=== PATIENT | female | born 1940 | race Caucasian/White ===

== ENCOUNTER 2017-05-05 12:32 | Inpatient (IN) | payer MEDICARE, MEDICAID ==
[~2017-05-05] VITALS: Ht 170.2 cm; Wt 83.0 kg
[~2017-05-05 12:32] MED LIST: ACTOS30 MG PO; AMITRIPTYLINE 225 MG PO; AVALIDE 12.5 MG1 TA1 PO; AVAPRO150 MG PO; FUROSEMIDE 40MG40 M1 PO; GLUCOVANCE 2.51 TAB PO; JANUVIA50 MG PO; LANTUS INS100 UNITS/ SC; METFORMIN HCL1000 MG PO; MULTIVITAMIN1 TA1 PO; Prilosec20 MG PO; SIMVASTATIN40 MG PO; TUMS500 MG PO; VITAMIN B12250 MCG PO; VITAMIN B650 MG PO
[2017-05-05 12:34] VITALS: BP 126/69
[2017-05-05] MEDS ORDERED: GABAPENTIN600 MG PO (12:43)
--- NOTE | 2017-05-05 12:57 | Emergency Room Report ---
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 N Clinical Suspician of Infection? N Mental Status: 1 - Regular (Normal Baseline) Sepsis Risk:Low Sepsis Risk Have you (or family members/close friends) recently traveled outside the [place]? N If Yes, where/when: Have you had exposure to infectious disease within the past month? N TB? Other? Specify: 6-year-old years old white female with diabetic neuropathy and diabetic shoes. She claims that it she slipped and fell and was unable to stand on the LEFT leg. She denies other injury. She wanted her potassium checked" and Dr. Short modified. Source patient, RN notes reviewed, EMS Exam Limitations no limitations ALLERGIES Coded Allergies: Penicillins (05/05/17) TOMATOES (FOOD) (From TOMATOES (FOOD/DRUG)) (UNKNOWN 01/27/11) egg (05/05/17) morphine (05/05/17) tomato (05/05/17) Home Medications Active Scripts METFORMIN HCL (Metformin 1000MG) 1,000 MG PO BID #60 Prov: 02/25/11 Sitagliptin Phosphate (Januvia) 50 MG PO DAILY #30 Prov: 02/25/11 Irbesartan (Avapro) 150 MG PO DAILY #30 Prov: 02/25/11 Reported Medications Furosemide 40 MG PO BID Cyanocobalamin (Vitamin B12) 250 MCG PO DAILY Pyridoxine Hcl (Vitamin B6) 50 MG PO DAILY Multiple Vitamin (Multivitamin) 1 TAB PO DAILY Calcium Carbonate (Tums) 500 MG PO PRN Simvastatin (Simvastatin 40MG Tab) 40 MG PO QHS Amitriptyline Hcl (Amitriptyline) 1 TAB PO DAILY Insulin Glargine (Lantus Insulin Vial) 20 UNITS SC QHS Gabapentin 600 MG PO QHS #45 History Medical History General Angina: Yes [place]: Yes Hypertension? Yes Hyperlipidemia? Yes CHF? Yes COPD? No Asthma? No Hernia? Yes CVA? No Seizures? No Diabetes? Yes Insulin Dependent: Yes Insulin Pump: No Home FSBS? Yes UTI? Yes Stones? Yes GB Disease: Yes Hepatitis? No Cataracts? No Glaucoma? No MRSA? No TB? No Cancer? 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 Respiratory no symptoms reported Cardiovascular no symptoms reported Gastrointestinal no symptoms reported Genitourinary no symptoms reported. Musculoskeletal see HPI, joint pain (LEFT hip) Skin no symptoms reported Psychiatric/Neurological no symptoms reported Physical Exam Vital Signs Vital Signs Date Time Temp Pulse Resp B/P Pulse O2 O2 Flow FiO2 Ox Delivery Rate 05/05 1338 78 18 155/92 96 05/05 1335 18 05/05 1234 98.2 62 18 126/69 98 Alert talkative and pleasant (Jossie MAYES,[facility]) - WBC >12,000 or <4,000 or 10% bands? 2 or more SIRS Criteria Met? B/P:126/69 MAP:88 Creatinine >2.0? UA output<0.5ml/kg/hr for 2 hrs? Platelet count >100,000? Lactate >2.0mmol/1? INR >1.2 or PTT > than 60 sec? Evidence of Organ Dysfunction? Provider documented clinical suspician of infection? N Sepsis Criteria Count: 0 Sepsis Risk: Low Sepsis Risk General Appearance normal appearance, WD/WN Eye Exam - bilateral eye normal exam, bilateral eye PERRL, bilateral eye EOMI Ear, Nose, Throat hearing grossly normal, normal ENT inspection Neck normal inspection, non-tender, supple, full range of motion Respiratory Status Yes: trachea midline, chest symmetrical, non tender chest. No: respiratory distress. Lung Sounds bilateral: normal breath sounds, lungs clear. Cardiovascular normal exam, regular rate/rhythm, no peripheral edema, no gallop, no JVD, no murmur, no rub, normal peripheral pulses Peripheral Pulses Pulses normal Yes Peripheral Pulses 2+ dorsalis pedis (R), 2+ dorsalis pedis (L) Gastrointestinal normal bowel sounds, normal exam, non tender, soft, no organomegaly Extremities unable to move the LEFT leg without deformity suggestive of LEFT hip fracture Neurologic alert, clinical therapist II-XII nml as tested, normal exam, oriented x 3 Reflexes Reflexes normal Yes Medical Decision Making LABS/Meds/Orders Pt receiving controlled substance in ED? No Results/Orders Laboratory Tests 05/05/17 1350: Urine Color YELLOW, Urine Appearance SL CLOUDY, Urine pH 7.0, Ur Specific [place] 1.010, Urine Protein NEGATIVE, Urine Ketones NEGATIVE, Urine Blood NEGATIVE, Urine Nitrate NEGATIVE, Urine Bilirubin NEGATIVE, Urine Urobilinogen 0.2, Ur Leukocyte Esterase NEGATIVE, Urine RBC NONE, Urine WBC OCC, Ur Squamous Epith Cells NONE, Urine Bacteria 4+, Urine Glucose NEGATIVE 05/05/17 1250: Magnesium 1.7 05/05/17 1250: Sodium 136, Potassium 3.4 L, Chloride 98, Carbon Dioxide 29, BUN 9, Creatinine 0.9, Estimated Creat Clear 101, Estimated GFR (MDRD) 61, Glucose 185 H, Calcium 9.3, Total Bilirubin 0.5, AST 23, ALT 19, Alkaline Phosphatase 60, Total Protein 6.7, Albumin 3.4, Globulin 3.3 H, Albumin/Globulin Ratio 1.0 L, WBC 6.4, RBC 4.07 L, Hgb 12.3, Hct 36.1 L, MCV 88.7, RDW 12.3, Plt Count 174, MPV 8.4, Gran % 73.3, Gran # 4.7, Lymphocytes % 20.5, Monocytes % 5.0, Eosinophils % 0.9, Basophils % 0.4, Lymphocytes # 1.3, Monocytes # 0.3, Eosinophils # 0.1, Basophils # 0.0, PUBS MCHC 34.1, MCH 30.3 Current Medication Orders Sig/Maxime Start time Last Medication Dose Route Stop Time Status Admin Hydrocodone Bitart/ 1 TAB ONCE ONE 05/05 1345 DCr 05/05 Acetaminophen PO 05/05 1346 1335 Ondansetron HCl 4 MG ONCE ONE 05/05 1345 DC 05/05 IV 05/05 1346 1335 Ondansetron HCl 0 .STK-MED ONE 05/05 1334 DC .ROUTE Hydrocodone Bitart/ 0 .STK-MED ONE 05/05 1333 DCr Acetaminophen PO Sodium Chloride 10 ML PRN PRN 05/05 1300 AC IV 05/06 1255 Orders Procedure Date/time Status URINARY CATHETER INSERT 05/05 1351 Active URINALYSIS/COMPLETE 05/05 1351 Complete CULTURE, URINE 05/05 1350 Active IV SALINE LOCK 05/05 1255 Active PELVIS AP ONLY 05/05 1254 Active HIP LT 2-3V W/PELVIS IF PERFOR 05/05 1254 Active CHEST-AP VIEW ONLY 05/05 1254 Active MAGNESIUM 05/05 1254 Complete COMPLETE METABOLIC PANEL 05/05 1245 Complete CBC WITH AUTO DIFF 05/05 1245 Complete XRAY/CT/US XRAY/CT/US XRAY chest, hip, pelvis XR interpretation by reviewed by me Xray Results abnormal, positive for LEFT femur neck fracture Departure Departure Time of Disposition 1335 Disposition Still a Patient Clinical Impression Primary Impression: Hip fracture, left Secondary Impressions: Closed fracture of femur, neck, Diabetic neuropathy Condition STABLE Referrals KARLENE ARROYO Additional Instructions [address] Arroyo to review. 1435 dr Arroyo called back and requested to admit, feed her and surgery is tomorrow. [address] Mata to admit. Discharge Counseling Counseled pt/family regarding diagnosis, test results, medications/RX, home care ED Critical Care Critical Care No If Critical Care minutes are documented, the time involved in the performance of seperately reportable procedures was not counted toward critical care time documented. I directly delivered medical care to this critically ill and/or injured patient. Timely evaluation and treatment was necessary to address the significant organ system(s) dysfunction present in this patient. at 1436
[2017-05-05 12:58] LABS: HEMOGLOBIN 12.3 g/dL (12.2-16.2); LYMPH # 1.3 K/mm3 (0.7-4.5); LYMPH % 20.5 % (10-50.0)
--- OUTSIDE RECORDS SUMMARY | 2017-05-05 13:07 | External Medical Summary Rpt | CCD ---
Author Author MARITA Address Unknown Phone [email or web address] Purpose Continuity of Care Document - through 2016
--- OUTSIDE RECORDS SUMMARY | 2017-05-05 13:07 | External Medical Summary Rpt | CCD ---
Author Author MARITA Address Unknown Phone [email or web address] Purpose Continuity of Care Document - through 2016
--- OUTSIDE RECORDS SUMMARY | 2017-05-05 13:08 | External Medical Summary Rpt | CCD ---
Demographics Preferred Language Danish Marital Status Unknown Anglican Affiliation Unknown Race Unknown Ethnic Group Unknown Author Author , GAIL REYNOLDS Address Unknown Phone Immunization No patient found.
--- OUTSIDE RECORDS SUMMARY | 2017-05-05 13:08 | External Medical Summary Rpt | CCD ---
Demographics Preferred Language Bhutanese Marital Status Unknown Sikhism Affiliation Unknown Race Unknown Ethnic Group Unknown Author Author , GAIL REYNOLDS Address Unknown Phone Immunization No patient found.
--- OUTSIDE RECORDS SUMMARY | 2017-05-05 13:08 | External Medical Summary Rpt ---
Author Author GAIL Castro, GAIL [employer] Organization [employer] Address Unknown Phone Unavailable
--- OUTSIDE RECORDS SUMMARY | 2017-05-05 13:08 | External Medical Summary Rpt | CCD ---
Author Author [employer] Organization [employer] Address Unknown Phone Unavailable Purpose Continuity of Care Document - through 2016
[2017-05-05 14:09] LABS: URINE BILIRUBIN - DIPSTICK NEGATIVE (NEG); URINE BLOOD NEGATIVE (NEG)
--- NOTE | 2017-05-05 15:14 | RADIOLOGY REPORT PS360 ---
CHEST-AP VIEW ONLY HISTORY: Posttraumatic pain fall ORDERING PHYSICIAN: Ezra Sethi MD PATIENT AGE: 77 years COMPARISON: 06/02/2008 FINDINGS: There is mild cardiomegaly without failure. Lungs are clear. Mild thoracic scoliosis convex right. Mild degenerative changes in the shoulders. IMPRESSION: Cardiomegaly, no acute finding
--- NOTE | 2017-05-05 15:14 | RADIOLOGY REPORT PS360 ---
CHEST-AP VIEW ONLY HISTORY: Posttraumatic pain fall ORDERING PHYSICIAN: Ezra eSthi MD PATIENT AGE: 77 years COMPARISON: 06/02/2008 FINDINGS: There is mild cardiomegaly without failure. Lungs are clear. Mild thoracic scoliosis convex right. Mild degenerative changes in the shoulders. IMPRESSION: Cardiomegaly, no acute finding
--- NOTE | 2017-05-05 15:16 | RADIOLOGY REPORT PS360 ---
PELVIS AP ONLY HISTORY: Fall with injury and pain fall ORDERING PHYSICIAN: Ezra Sethi MD PATIENT AGE: 77 years COMPARISON: None FINDINGS: There is a transcervical left femoral neck fracture with foreshortening of the distal fracture fragment. There is 1.8 cm proximal displacement of the distal fracture fragment. Otherwise negative. IMPRESSION: Impacted left femoral neck fracture
--- NOTE | 2017-05-05 15:18 | RADIOLOGY REPORT PS360 ---
HIP LT 2-3V W/PELVIS IF PERFOR HISTORY: Left hip pain following injury fall ORDERING PHYSICIAN: Ezra Sethi MD PATIENT AGE: 77 years COMPARISON: None FINDINGS: There is an impacted left femoral neck fracture. The distal fracture fragment is proximally displaced by approximately 2 cm. No other significant anomalies are evident. No evidence of dislocation. IMPRESSION: Impacted left femoral neck fracture
--- NOTE | 2017-05-05 15:49 | HISTORY AND PHYSICAL REPORT ---
Demographics: Admit date: 05/05/17 Chief complaint: left hip pain PRIMARY DIAGNOSIS: left femoral neck fracture Allergies: Coded Allergies: Penicillins (05/05/17) TOMATOES (FOOD) (From TOMATOES (FOOD/DRUG)) (UNKNOWN 01/27/11) egg (05/05/17) morphine (05/05/17) tomato (05/05/17) History of present illness: History of present illness: 77 year old female with a history of HTN, hyperlipidemia, and diabetes was transported via EMS to the ED for left hip pain s/p fall at 1000 this morning. Patient reports her shoe slipped resulting in the fall from standing position onto concrete. Patient was unable to get up and phone for help. She was found by family at 1200 laying in the floor on her left side. In the ED, she was found to have a left femoral neck fracture. CXR and pelvis films were unremarkable. Patient was admitted to acute care for orthopedic consult and surgical repair. Past medical history: Family HX Diabetes Yes CAD Yes Hypertension Yes Hyperlipidemia No Cancer Yes TB Yes Immunization HX DT/Tetanus UNKNOWN Flu NEVER Pneumonia > 10 YRS General Angina: Yes [place]: Yes Hypertension? Yes Hyperlipidemia? Yes CHF? Yes COPD? No Asthma? No Hernia? Yes CVA? No Seizures? No Diabetes? Yes Insulin Dependent: Yes Insulin Pump: No Home FSBS? Yes UTI? Yes Stones? Yes GB Disease: Yes Hepatitis? No Cataracts? No Glaucoma? No MRSA? No TB? No Cancer? 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-LEGS RT OVARIAN TUMOR REMOVED (11 POUNDS) GALL STONES REMOVED Current home meds: Active Scripts METFORMIN HCL (Metformin 1000MG) 1,000 MG PO BID #60 Prov: 02/25/11 Sitagliptin Phosphate (Januvia) 50 MG PO DAILY #30 Prov: 02/25/11 Irbesartan (Avapro) 150 MG PO DAILY #30 Prov: 02/25/11 Reported Medications Furosemide 40 MG PO BID Cyanocobalamin (Vitamin B12) 250 MCG PO DAILY Pyridoxine Hcl (Vitamin B6) 50 MG PO DAILY Multiple Vitamin (Multivitamin) 1 TAB PO DAILY Calcium Carbonate (Tums) 500 MG PO PRN Simvastatin (Simvastatin 40MG Tab) 40 MG PO QHS Amitriptyline Hcl (Amitriptyline) 1 TAB PO DAILY Insulin Glargine (Lantus Insulin Vial) 20 UNITS SC QHS Gabapentin 600 MG PO QHS #45 Social Hx: Smoking HX Tobacco No Alcohol Alcohol: No Hx of Drug Use Drug Use? No Patient's support system is fair Review of systems: Constitutional No: no symptoms reported. Eyes No: no symptoms reported. Ears, Nose, Mouth, Throat No no symptoms reported Respiratory No: no symptoms reported. Cardiovascular No no symptoms reported Gastrointestinal/Abdominal No no symptoms reported Genitourinary No: no symptoms reported. Musculoskeletal see HPI. Skin No: no symptoms reported. Neurological Yes: parasthesia (LE ). Psychiatric No: no symptoms reported. Exam: Lab data for last 24 hours: Laboratory Tests 05/05/17 1350: Urine Color YELLOW, Urine Appearance SL CLOUDY, Urine pH 7.0, Ur Specific [place] 1.010, Urine Protein NEGATIVE, Urine Ketones NEGATIVE, Urine Blood NEGATIVE, Urine Nitrate NEGATIVE, Urine Bilirubin NEGATIVE, Urine Urobilinogen 0.2, Ur Leukocyte Esterase NEGATIVE, Urine RBC NONE, Urine WBC OCC, Ur Squamous Epith Cells NONE, Urine Bacteria 4+, Urine Glucose NEGATIVE 05/05/17 1250: Magnesium 1.7 05/05/17 1250: Sodium 136, Potassium 3.4 L, Chloride 98, Carbon Dioxide 29, BUN 9, Creatinine 0.9, Estimated Creat Clear 101, Estimated GFR (MDRD) 61, Glucose 185 H, Calcium 9.3, Total Bilirubin 0.5, AST 23, ALT 19, Alkaline Phosphatase 60, Total Protein 6.7, Albumin 3.4, Globulin 3.3 H, Albumin/Globulin Ratio 1.0 L, WBC 6.4, RBC 4.07 L, Hgb 12.3, Hct 36.1 L, MCV 88.7, RDW 12.3, Plt Count 174, MPV 8.4, Gran % 73.3, Gran # 4.7, Lymphocytes % 20.5, Monocytes % 5.0, Eosinophils % 0.9, Basophils % 0.4, Lymphocytes # 1.3, Monocytes # 0.3, Eosinophils # 0.1, Basophils # 0.0, PUBS MCHC 34.1, MCH 30.3 Microbiology 05/05 1350 URINE CATH: Urine Culture - RECD Admission vital signs: 1ST Vital Signs Result Date Time Pulse Ox 98 05/05 1234 B/P 126/69 05/05 1234 Temp 98.2 05/05 1234 Pulse 62 05/05 1234 Resp 18 05/05 1234 Exam General appearance: normal appearance, alert, awake Eyes: anicteric ENT: mucous membranes moist Neck: non-tender, no carotid bruit, no JVD, full range of motion Cardiovascular: regular rate & rhythm, no murmur, diminished DP/PT bilaterally, 1+ LLE edema Respiratory: clear to auscultation, chest non-tender, good air movement, normal breath sounds ABD: non-distended, normal bowel sounds, no rebound, soft, no tenderness Genitourinary: no dysuria, no hematuria Extremities: external rotation of left leg, sensation and pulses equal bilaterally, able to wiggle toes Musculoskeletal: sensation intact Skin: dry, intact, normal color Neuro: alert, intact, no deficit, normal mood/affect, oriented Plan: Problem List 1. Closed fracture of femur, neck Assessment/Plan NPO after midnight for surgery repair tomorrow. 2. Diabetes Assessment/Plan FSBS with sliding scale coverage. Plan: See above at [id number]
[2017-05-05 17:34] VITALS: BP 121/61
[2017-05-05] MEDS ORDERED: K-DUR 2020 MEQ PO (17:55)
[2017-05-05] MEDS ORDERED: ONGLYZA5 MG PO (17:55)
[2017-05-05 17:58] VITALS: BP 121/61
[2017-05-05 19:55] VITALS: BP 142/80
[2017-05-05 21:30] VITALS: BP 142/80
--- NOTE | 2017-05-05 23:05 | PHARMACY CLINIC NOTE ---
Patient Demographics Patient Demographics Admission date: 05/05/17 Date: 05/05/17 Time: 2304 Allergies Coded Allergies: Penicillins (05/05/17) TOMATOES (FOOD) (From TOMATOES (FOOD/DRUG)) (UNKNOWN 01/27/11) egg (05/05/17) morphine ("MAKES HER CRAZY" 05/05/17) tomato (05/05/17) HEIGHT- FT: 5 IN: 7.00 K.096 VTE General Information Labs: Laboratory Tests 05/05 1250 Hematology Hgb (12.2 - 16.2 g/dL) 12.3 Hct (37.0 - 47.0 %) 36.1 L Plt Count (142 - 424 K/mm3) 174 Disclaimer The following section includes nursing documentation that has been pulled in for pharmacy review. Patient's VTE score: 2 Patient's VTE Risk: VERY LOW RISK Clinical trial participant? No VTE prophylaxis [id number] VTE prophylaxis ordered? Yes Type of prophylaxis/treatment: OSBALDO at 2304
[2017-05-06] VITALS (14 sets, daily range): BP systolic 89–126; BP diastolic 48–72
--- NOTE | 2017-05-06 06:40 | ACUTE CARE PROGRESS NOTE (QUA) ---
Progress Notes Subjective Date 05/06/17 Time 0639 Note Patient slept well. Has some minimal pain. On exam lungs are clear, heart rate regular. Abdomen soft, able to wiggle her toes on both feet. Feet are warm and well perfused. Objective Findings Last VS-Temp:98.7 B/P:126/55 Pulse:88 Resp:18 SaO2:91 ROOM AIR Last weight lbs:174 oz:6 K.096 Method:Bed Scales Assessment/Plan Problem List 1. Closed fracture of femur, neck 2. Diabetes Patient condition Stable Plan: continue current care, orthopedic consult as noted. Anticipate hip repair today. This inpt stay is expected to cross 2 MNs from start of care Yes at 0640
--- NOTE | 2017-05-06 09:00 | CONSULT NOTE ---
Consultation findings: Referring physician: Dr. Mata Date of examination: 05/06/17 Time of examination: 0840 Exam findings: Reason for consultation: Fracture neck of femur, LEFT. Chief complaint: pain LEFT hip, status post fall Primary care physician: Daniel Mata M.D History of Present Illness: Ms. Marques is a pleasant 77-year-old female, admitted to the hospital yesterday as an acute inpatient from the ER. She is somewhat of a poor historian. She is giving a history of injury to her left hip after a fall at home. She says her shoe slipped causing her to fall from a standing position onto the concrete floor. Following the fall she says she could not get up and walk. She was found lying on the floor couple hours later by the family and she was brought to the ER. Evaluation in the ER including x-rays showed a displaced subcapital femoral neck fracture on the left. She was admitted for management of the same. She says she has minimal discomfort at rest and the LEFT hip pain is worse with movements of the leg. She denies any other injuries including head injury, neck injury, back injury, chest or abdominal injury or upper extremity injury. No numbness or tingling. No history of any dizziness, headache, chest or neck pain. She lives by herself and usually walks either using a cane or a walker. She denies loss of consciousness, chest pain and shortness of breath. She has history of diabetes mellitus which she says is well controlled on medication. She also has history of HTN and hyperlipidemia. Allergies: Coded Allergies: Penicillins (05/05/17) TOMATOES (FOOD) (From TOMATOES (FOOD/DRUG)) (UNKNOWN 01/27/11) egg (05/05/17) morphine (05/05/17) tomato (05/05/17) Past medical history: Family HX Diabetes Yes CAD Yes Hypertension Yes Hyperlipidemia No Cancer Yes TB Yes Immunization HX DT/Tetanus UNKNOWN Flu NEVER Pneumonia > 10 YRS General Angina: Yes [place]: Yes Hypertension? Yes Hyperlipidemia? Yes CHF? Yes COPD? No Asthma? No Hernia? Yes CVA? No Seizures? No Diabetes? Yes Insulin Dependent: Yes Insulin Pump: No Home FSBS? Yes UTI? Yes Stones? Yes GB Disease: Yes Hepatitis? No Cataracts? No Glaucoma? No MRSA? No TB? No Cancer? 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 PROCEDURES VEIN STRIPPING-LEGS RT OVARIAN TUMOR REMOVED (11 POUNDS) GALL STONES REMOVED Current home meds: Active Scripts METFORMIN HCL (Metformin 1000MG) 1,000 MG PO BID #60 Prov: 02/25/11 Sitagliptin Phosphate (Januvia) 50 MG PO DAILY #30 Prov: 02/25/11 Irbesartan (Avapro) 150 MG PO DAILY #30 Prov: 02/25/11 Reported Medications Furosemide 40 MG PO BID Cyanocobalamin (Vitamin B12) 250 MCG PO DAILY Pyridoxine Hcl (Vitamin B6) 50 MG PO DAILY Multiple Vitamin (Multivitamin) 1 TAB PO DAILY Calcium Carbonate (Tums) 500 MG PO PRN Simvastatin (Simvastatin 40MG Tab) 40 MG PO QHS Amitriptyline Hcl (Amitriptyline) 1 TAB PO DAILY Insulin Glargine (Lantus Insulin Vial) 20 UNITS SC QHS Gabapentin 600 MG PO QHS #45 Social Hx: Smoking HX Tobacco No Alcohol Alcohol: No Hx of Drug Use Drug Use? No Patient's support system is fair Review of systems: Constitutional No: no symptoms reported. Eyes No: no symptoms reported. Ears, Nose, Mouth, Throat No no symptoms reported Respiratory No: no symptoms reported. Cardiovascular No no symptoms reported Gastrointestinal/Abdominal No no symptoms reported Genitourinary No: no symptoms reported. Musculoskeletal see HPI. Skin No: no symptoms reported. Neurological Yes: parasthesia (LE ). Psychiatric No: no symptoms reported. Laboratory Tests 05/06/17 0635: POC Glucose 226 H 05/05/17 1936: POC Glucose 277 H 05/05/17 1350: Urine Color YELLOW, Urine Appearance SL CLOUDY, Urine pH 7.0, Ur Specific [place] 1.010, Urine Protein NEGATIVE, Urine Ketones NEGATIVE, Urine Blood NEGATIVE, Urine Nitrate NEGATIVE, Urine Bilirubin NEGATIVE, Urine Urobilinogen 0.2, Ur Leukocyte Esterase NEGATIVE, Urine RBC NONE, Urine WBC OCC, Ur Squamous Epith Cells NONE, Urine Bacteria 4+, Urine Glucose NEGATIVE 05/05/17 1250: Magnesium 1.7 05/05/17 1250: Sodium 136, Potassium 3.4 L, Chloride 98, Carbon Dioxide 29, BUN 9, Creatinine 0.9, Estimated Creat Clear 101, Estimated GFR (MDRD) 61, Glucose 185 H, Calcium 9.3, Total Bilirubin 0.5, AST 23, ALT 19, Alkaline Phosphatase 60, Total Protein 6.7, Albumin 3.4, Globulin 3.3 H, Albumin/Globulin Ratio 1.0 L, WBC 6.4, RBC 4.07 L, Hgb 12.3, Hct 36.1 L, MCV 88.7, RDW 12.3, Plt Count 174, MPV 8.4, Gran % 73.3, Gran # 4.7, Lymphocytes % 20.5, Monocytes % 5.0, Eosinophils % 0.9, Basophils % 0.4, Lymphocytes # 1.3, Monocytes # 0.3, Eosinophils # 0.1, Basophils # 0.0, PUBS MCHC 34.1, MCH 30.3 Microbiology 05/05 1350 URINE CATH: Urine Culture - RES Vital Signs Result Date Time Pulse Ox 93 05/06 0800 B/P 120/72 05/06 0800 O2 Delivery ROOM AIR 05/06 0800 Temp 98.3 05/06 0800 Pulse 91 05/06 0800 Resp 18 05/06 0800 Exam General appearance: normal appearance, alert, awake Eyes: anicteric ENT: mucous membranes moist Neck: non-tender, no carotid bruit, no JVD, full range of motion Cardiovascular: regular rate & rhythm, no murmur, diminished DP/PT bilaterally, 1+ LLE edema Respiratory: clear to auscultation, chest non-tender, good air movement, normal breath sounds ABD: non-distended, normal bowel sounds, no rebound, soft, no tenderness Genitourinary: Indwelling catheter in place Skin: dry, intact, normal color Neuro: alert, intact, no deficit, normal mood/affect, oriented On examination of her lower extremities, the left leg is in James's traction and there is shortening of the LEFT leg and the foot is externally rotated. On examination of the LEFT hip the skin is normal. No rashes or lesions noted. She is tender over the LEFT hip. Any attempted movements of the LEFT hip are painful. Thigh and calf are soft and nontender. Dorsalis pedis and posterior tibial pulses are palpable 1+ bilaterally. Sensation is grossly intact. She has good range of foot, ankle and toe movements. Imaging: X-rays of her pelvis/LEFT hip are reviewed along with the radiologist's report. The x-rays show a displaced intracapsular fracture neck of LEFT femur. No other acute changes noted. The hip joint space is well-maintained. Impression: 1. Closed, displaced fracture neck of femur, left Hip 2. Diabetes mellitus Recommendations: I reviewed the clinical and x-ray findings with the patient. I have discussed the diagnosis and management options in detail including both nonsurgical and surgical. I have recommended surgical remediation in the form of a hemiarthroplasty LEFT hip. I explained the procedure, risks and benefits, alternatives and the expected postoperative course. I have shown them copies of her x-rays and explained to the patient with drawings of the fracture and the proposed surgical procedure. The complications discussed include but are not limited to infection, injury to nerves and blood vessels, DVT and PE, femur fracture, limb length inequality, dislocation, implant failure, loosening, acetabular wear, osteolysis, periprosthetic femur fracture, heterotopic ossification, abductor weakness and a limp, incomplete relief of pain, incomplete return of function or motion, likely need for further surgery in future including revision, anesthetic/medical complications including heart attack, stroke, transfusion reactions and even . We discussed how any of these events can be devastating. We have discussed nonsurgical alternatives as well. I've explained that the patient is at a significant surgical risk due to her age, medical issues, and fragility of the bone. The patient seemed to understand and accept these risks. We have discussed nonsurgical alternatives as well. The nonoperative management would essentially consist of prolonged bed rest and traction (skeletal/skin) in bed and pain medication and has exceptionally poor outcome. This could result in nonunion and malunion of the fracture and almost certainly, the patient has a very high risk of decubitus ulcers, UTI, respiratory tract infections, DVT/PE and other complications from being bedridden. I have explained to her that the standard of care for this sort of injuries is surgical throughout the country unless the patient is very ill for surgical management. We also discussed the postoperative course including the rehab and physical therapy required. She lives by herself and may need to go to a short-term rehab place after surgery. All her questions were answered and she verbalized a good understanding. She was medically cleared for surgery by Dr. Duke team. Well also obtain a preoperative anesthetic evaluation. I have recommended- Type and screen Continue nothing by mouth Continue IV fluids DVT prophylaxis as per protocol Analgesia as needed Consent patient for a hemiarthroplasty left hip. Order 900 mg of clindamycin for preoperative prophylaxis to start half an hour before surgery. I am planning to take her for surgery at the earliest opportunity today. Thank you for the opportunity to take part in the care of this very pleasant patient.
[2017-05-06 11:00] LABS: ABO BLOOD TYPE A; RH BLOOD TYPE POSITIVE
--- NOTE | 2017-05-06 16:54 | Anesthesia Record ---
Anesthesia Record Part I Total IV fluids: 1000 EBL (ml): 200 Urine Output: 475 B/P: 90/50 % SaO2: 92 Pulse: 84 Resps: 18 Temp: 97.8 Patient is: Drowsy, Nasal O2, Stable Stable to PACU at: 1649 at 1659
--- NOTE | 2017-05-06 16:55 | Anesthesia Record ---
Anesthesia Record Part II Discharge time: 1719 Destination: Second Floor PACU nurse assessment review? Yes Patient is: Drowsy, Stable Anesthesia complications? No at 6920
--- NOTE | 2017-05-06 17:16 | RADIOLOGY REPORT PS360 ---
HIP LT 2-3V W/PELVIS IF PERFOR HISTORY: Follow-up hip replacement S/P LT HIP REPLACEMENT ORDERING PHYSICIAN: Daniel Mata MD PATIENT AGE: 77 years COMPARISON: None FINDINGS: There is a bipolar prosthesis that has been inserted which is in good alignment and no evidence of orthopedic complications. There is postsurgical gas. IMPRESSION: Status post left hip replacement with good alignment
--- NOTE | 2017-05-06 17:32 | Operative Note ---
Procedure/Operative Record Date of Procedure: 05/06/17 Referring physician: Dr. Mata Pre-op diagnosis: Displaced Fracture neck of femur LEFT hip Post-op diagnosis: Displaced fracture neck of femur, LEFT hip Procedure performed: Uncemented bipolar hemiarthroplasty, LEFT hip Surgeon: Manuelito Stanford MD Electric Needle Specialist(s): Dr. Woods Anesthesia: General Indications: Patient is a 77-year-old female who sustained a displaced intracapsular fracture neck of LEFT femur following a mechanical fall. A hemiarthroplasty was indicated to relieve pain and restore function. The operation is indicated and is the standard of care for this type of fracture. Findings: Displaced sub capital femoral neck fracture of the LEFT hip as noted on the preoperative hip x-rays. The articular cartilage of the acetabulum is well maintained without evidence of any significant arthritis. The proximal femur bone quality was pretty/reasonably good. Description of procedure: On the day of the procedure the patient was met on the floor, and a physical examination was performed. The operating side and site were marked and initialed by me. I reviewed the diagnosis, natural history and management options in detail including both the nonsurgical and surgical. Given the nature of the fracture, I have recommended surgery in the form of a hemiarthroplasty of the LEFT hip. I discussed the procedure, risks and benefits, alternatives, potential complications and expected outcomes with the patient. The complications discussed include but are not limited to infection, injury to nerves and blood vessels, DVT and PE, femur fracture, limb length inequality, dislocation, implant failure, loosening, acetabular wear, osteolysis, periprosthetic femur fracture, heterotopic ossification, abductor weakness and a limp, incomplete relief of pain, incomplete return of function or motion, likely need for further surgery in future including revision, anesthetic/medical complications including heart attack, stroke, transfusion reactions and even . We discussed how any of these events can be devastating. We have discussed nonsurgical alternatives as well. We also discussed the postoperative course including the rehab and physical therapy required. The consent form was reviewed and signed. The patient was brought to the operating room and a daily general anesthesia was administered by the pantry goods maker. The patient was then transferred onto the operating table and positioned in the RIGHT lateral decubitus position with the LEFT hip facing upwards. All the bony prominences were well-padded. The LEFT lower extremity was then prepped and draped in the usual sterile fashion. The entire operative team used isolation suits and room traffic was controlled. The surgical landmarks and incision was marked over the skin with a marking pen. Ioban sterile drape was used to cover the operative site and isolate the perineum completely from the operative field. Administration of 900 mg of IV clindamycin was confirmed with the anesthetic team. A preprocedure timeout was performed as per hospital protocol. A posterior approach was used to the hip joint. An electrocautery was used for hemostasis. The skin incision was made centering over the posterior border of the greater trochanter extending posteriorly in a curvilinear fashion across the buttock. The dissection was carried through subcutaneous tissue down to the fascia yenny. The fascia yenny and gluteus fascia were split and a Charnley retractor was placed. The trochanteric bursa was then removed with blunt dissection. The sciatic nerve was identified and kept out of the harm's way throughout the rest of the procedure. The hip was then internally rotated and the fat over the external rotators was cleared with a sponge. The short external rotator muscles were identified, a tag stitch was placed near their insertion, and they were divided close to the greater trochanter with electrocautery. This exposed the joint capsule which was opened with a T shaped incision and tag stitches were applied to both the leaves of the capsule. Upon entering the joint capsule, a fracture hematoma was noted as well as the displaced sub-capital femoral neck fracture. A corkscrew was then used to remove the femoral head from the acetabulum and passed to the veterinary technician assistant to be sized on the back table. It measured 46 mm. All bony fragments were then removed from the acetabulum and surrounding soft tissue. The acetabulum was then inspected and found to be clear. The articular cartilage was noted to be well maintained without any significant arthritic changes. Our attention was then turned to the preparation of proximal femur where a cutting guide was used to caren the neck for the femoral neck cut. An oscillating saw was then used to finish the femoral cut. A box osteotome was then used to remove the bone from the proximal femur. A canal entry reamer was then used to open the femoral canal paying close attention to keep the reamer in a lateral position. Next we performed femoral broaching starting with a small broach, making efforts to lateralize the broach. The broaching was continued sequentially up to size 3 broach. We found this to be a very good fit without any rocking. We then performed a trial reduction using the size 3 broach, +0 neck and 46 mm bipolar head. The hip was taken through range of motion and tested in adduction, internal and external rotation as well as with a shuck and posteriorly directed force on a flexed hip. It was noted that the hip was very stable with these trial components throughout the range of motion. We also noted that the limb lengths were equal with these components. Next, the trial components were removed and the femur and acetabulum were irrigated with pulse lavage and suctioned out. The size 3 Delight accolade 132 degree femoral stem was introduced and seated to the appropriate level. This gave us a very good fit without any play whatsoever. We then irrigated and dried the Tai taper and then placed the definitive 46 mm bipolar femoral head assembly on the stem and tapped into place. The hip was then reduced and again taken through range of motion and noted to be stable. The limb length was also well corrected. The hip joint was then soaked with dilute Betadine solution for 3 minutes, then suctioned out and irrigated with normal saline pulse lavage. We ensured good hemostasis with diathermy cautery and then proceeded to close the wound. The capsule was closed with interrupted #1 Vicryl sutures followed by reattachment of the external rotators to the greater trochanter with #1 Vicryl sutures. Next the fascia yenny and the gluteus fascia were closed with #1 Vicryl sutures. The wound was then again irrigated copiously with pulse lavage and suctioned dry. Next the subcutaneous tissues were closed with 2-0 Vicryl sutures. The skin was closed with 4-0 Monocryl subcuticular sutures, Dermabond and Steri-Strips. The skin and subcutaneous tissue were infiltrated with 30 mL of 0.5 percent Marcaine for postoperative analgesia. Sterile dressings were applied consisting of Xeroform, 4 x 4 and ABDs as well as adhesive tape. No drains were placed. The patient was then transferred from the operating table onto the bed. The leg lengths were again checked in supine position and noted to be equal. An abduction pillow was placed between the legs. The patient was then reversed from the anesthetic and transported to the postoperative recovery area in a stable condition. She tolerated the procedure well and there were no immediate complications. Swab, needle and instrument counts were correct according to the scrub team at the end of the procedure. Portable X-rays of the LEFT hip AP and lateral views were obtained in the recovery area and noted to be satisfactory. Postoperatively, continue standard precautions for a posterior hip approach. To mobilize weightbearing as tolerated with the help of a walker by physical therapist and to commence standard physical therapy and precautions for a posterior hip approach. EBL (ml): 200 Implant: Delight Accolade TMGF plus 132 degree neck angle V 40, hip stem- size 3 [facility] universal head bipolar component- 46 mm outer diameter/28 mm inner diameter Delight LFIT V40 femoral head, 28 mm outer diameter, 0 mm offset (Industry quality audit representative: Eliud Cochran from [facility] [employer]) Complications: None Specimens: None
[2017-05-07] VITALS (9 sets, daily range): BP systolic 94–127; BP diastolic 53–71
[2017-05-07 07:54] LABS: HEMOGLOBIN 9.7 g/dL (12.2-16.2)
--- NOTE | 2017-05-07 08:26 | ACUTE CARE PROGRESS NOTE (QUA) ---
Progress Notes Subjective Date 05/07/17 Time 0745 Note Patient reports she is feeling "okay." Pain is well controlled. She is tolerating oral intake well. Alert and oriented x3. Rate and rhythm regular. 1+LLE edema, DP/PT equal bilaterally. Sensation intact bilateral feet, she is able to wiggle toes. Lung sounds clear and equal. Abdoemen soft, nontender, normoactive bowel sounds Patient/family reports: feeling better Nursing reports: no complaints, constipation Objective Findings Last VS-Temp:98.8 B/P:94/59 Pulse:95 Resp:18 SaO2:93 ROOM AIR Last weight lbs:175 oz:6 K.549 Method:Bed Scales Reviewed: medications, vital signs, lab results Assessment/Plan Problem List 1. Closed fracture of femur, neck 2. Diabetes Patient condition Improving Plan: continue current care This inpt stay is expected to cross 2 MNs from start of care Yes Comments: Continue PT/OT. Senna PRN for constipation. Plan to d/c to [facility] tomorrow for rehab at 5537
--- NOTE | 2017-05-07 20:28 | ACUTE CARE PROGRESS NOTE ---
Progress note Date: 05/07/17 Assessment: Subjective: Terri Marques is a 77 f. She is status post LEFT hip bipolar hemiarthroplasty , post op day # 1. She is lying down on the bed and appears comfortable. She says she is doing well and her pain is well controlled. She is complaining of constipation. She is eating and drinking well. No history of any nausea, vomiting, chest pain or shortness of breath. Objective: Laboratory Tests 05/07/17 1142: POC Glucose 302 *H 05/07/17 0615: Sodium 135 L, Potassium 3.2 L, Chloride 99, Carbon Dioxide 30, BUN 11, Creatinine 0.8, Estimated Creat Clear 73, Estimated GFR (MDRD) 69, Glucose 265 H, Calcium 8.7, WBC 8.2, RBC 3.18 L, Hgb 9.7 L, Hct 28.9 L, MCV 90.8, RDW 12.5, Plt Count 156, MPV 8.1, Gran % 81.5 H, Gran # 6.6, Lymphocytes % 12.0, Monocytes % 6.2, Eosinophils % 0.2, Basophils % 0.2, Lymphocytes # 1.0, Monocytes # 0.5, Eosinophils # 0.0, Basophils # 0.0, PUBS MCHC 33.3, MCH 30.2 05/07/17 0614: POC Glucose 276 H 05/06/17 2106: POC Glucose 411 *H Vital Signs Result Date Time Pulse Ox 90 05/07 1956 B/P 117/63 05/07 1956 O2 Delivery ROOM AIR 05/07 1956 Temp 98.9 05/07 1956 Pulse 105 05/07 1956 Resp 16 05/07 1956 Exam General appearance: alert, active, awake, no acute distress ENT: mucous membranes moist Cardiovascular: normal sinus rhythm, regular rate & rhythm Respiratory: clear to auscultation, normal breath sounds ABD: soft, non tender, non-distended, normal bowel sounds Genitourinary: catheter in place Skin: dry, intact Neuro: alert, no deficit, normal mood/affect, speech clear On examination of her LEFT lower extremity, the limb lengths are equal. The alignment is neutral. The dressings over the LEFT hip are clean, dry and intact. Her thigh and calf are soft and nontender. Distal neurovascular status is intact. Her postoperative hip x-rays are satisfactory. Impression: 1. Closed fracture of femur, neck 2. Diabetes Plan: Status post bipolar hemiarthroplasty LEFT hip, postoperative day 1. I reviewed her vital signs, lab results, nursing notes, medical progress notes, medication and also discussed with the nursing staff regarding her progress. I reviewed the findings and procedure performed with the patient. She had a spike of temperature yesterday postoperatively which is not unexpected and there is no evidence of infective focus. Physical therapy to continue mobilization weightbearing as tolerated with the frame. Use abduction pillow when in bed and continue using this for 6 weeks postop. Continue standard precautions for posterior approach to the hip joint. Continue DVT prophylaxis for 5 weeks ( Appropriate agents include [id number] aspirin, subcu Lovenox, warfarin, Xarelto, Eliquis and similar). Discontinue IV fluids as she is eating and drinking well. Discontinue catheter tomorrow. Postoperative dressing changes on the second postoperative day. She can be transferred to SNF when she meets the criteria. Follow-up in my office in 2 weeks' time. Medical management as per Dr. Mata's team. Antibiotic Stewardship (2) Current Culture Results Microbiology 05/05 1350 URINE CATH: Urine Culture - RECD Pending
[2017-05-08 04:00] VITALS: BP 104/58
[2017-05-08 07:49] VITALS: BP 147/72
[2017-05-08 08:03] VITALS: BP 147/72
--- NOTE | 2017-05-08 08:19 | ACUTE CARE PROGRESS NOTE (QUA) ---
Progress Notes Subjective Date 05/08/17 Time 0818 Note Patient feels overall well, had a good breakfast, felt a little nauseated after breakfast but did not vomit. Lungs have some rhonchi but are otherwise clear bilaterally, good air movement. Heart rate is regular. Abdomen soft, she has no edema, able to move all of her toes and wiggle both feet. Good distal pulses in both legs. Objective Findings Last VS-Temp:98.6 B/P:147/72 Pulse:85 Resp:20 SaO2:96 ROOM AIR Last weight lbs:175 oz:6 K.549 Method:Bed Scales Assessment/Plan Problem List 1. Closed fracture of femur, neck 2. Diabetes Patient condition Improving Plan: continue current care, continue home medications, removed catheter, continue PT, probable halfway transfer. This inpt stay is expected to cross 2 MNs from start of care Yes at 0819
[2017-05-08 08:33] LABS: HEMOGLOBIN 9.3 g/dL (12.2-16.2); LYMPH # 1.4 K/mm3 (0.7-4.5); LYMPH % 15.5 % (10-50.0)
--- NOTE | 2017-05-08 13:22 | ACUTE CARE PROGRESS NOTE ---
Progress note Date: 05/08/17 Assessment: Subjective data: Terri Marques is a 77 f. She is status post LEFT hip bipolar hemiarthroplasty , post op day # 2. She is lying down on the bed and appears comfortable. She says she is doing well and her pain is well controlled. She is eating and drinking well. No history of any nausea, vomiting, chest pain or shortness of breath. Objective: Laboratory Tests 05/08/17 0820: Sodium 135 L, Potassium 3.2 L, Chloride 101, Carbon Dioxide 29, BUN 10, Creatinine 0.7, Estimated Creat Clear 83, Estimated GFR (MDRD) 81, Glucose 197 H, Calcium 8.4 L, WBC 8.9, RBC 3.05 L, Hgb 9.3 L, Hct 27.6 L, MCV 90.6, RDW 12.6, Plt Count 140 L, MPV 8.2, Gran % 78.0, Gran # 7.0, Lymphocytes % 15.5, Monocytes % 5.7, Eosinophils % 0.7, Basophils % 0.2, Lymphocytes # 1.4, Monocytes # 0.5, Eosinophils # 0.1, Basophils # 0.0, PUBS MCHC 33.7, MCH 30.5 05/08/17 0603: POC Glucose 175 H 05/07/17 2019: POC Glucose 190 H Vital Signs Result Date Time Resp 20 05/08 1003 Pulse Ox 96 05/08 0803 B/P 147/72 05/08 0803 Temp 98.6 05/08 0803 Pulse 85 05/08 0803 O2 Delivery ROOM AIR 05/08 0749 Exam General appearance: alert, active, awake, no acute distress ENT: mucous membranes moist Cardiovascular: normal sinus rhythm, regular rate & rhythm Respiratory: clear to auscultation, normal breath sounds ABD: soft, non tender, non-distended, normal bowel sounds Genitourinary: catheter in place Skin: dry, intact Neuro: alert, no deficit, normal mood/affect, speech clear On examination of her LEFT lower extremity, the limb lengths are equal. The alignment is neutral. The dressings over the LEFT hip are clean, dry and intact. The dressings were changed today and the surgical incision is healthy. Her thigh and calf are soft and nontender. Distal neurovascular status is intact. Impression: 1. Closed fracture of femur, neck 2. Diabetes Plan: Status post bipolar hemiarthroplasty LEFT hip, postoperative day 2. Ambulate, DVT prophylaxis, Precautions (posterior approach precautions) I reviewed her vital signs, lab results, nursing notes, medical progress notes, medication and also discussed with the nursing staff regarding her progress. Overall she is doing well and progressing along the expected lines. Continue physical therapy and mobilization weightbearing as tolerated with the walker. Use abduction pillow when in bed and continue using this for 6 weeks postop. Continue standard precautions for posterior approach to the hip joint. Continue DVT prophylaxis for 5 weeks (Appropriate agents include [id number] aspirin, subcu Lovenox, warfarin, Xarelto, Eliquis and similar). She can be transferred to SNF when she meets the criteria. Follow-up in my office in 2 weeks' time. Medical management as per Dr. Mata's team. Antibiotic Stewardship (2) Current Culture Results Microbiology 05/05 1350 URINE CATH: Urine Culture - RES at [id number]
[2017-05-08 19:10] LABS: URINE BLOOD 3+ (NEG)
[2017-05-08 19:14] LABS: URINE BILIRUBIN - DIPSTICK 1+ (NEG)
[2017-05-08 20:08] VITALS: BP 119/72
[2017-05-08 21:15] VITALS: BP 119/72
[2017-05-09 04:00] VITALS: BP 144/92
[2017-05-09 07:41] VITALS: BP 138/91
--- NOTE | 2017-05-09 07:44 | ACUTE CARE PROGRESS NOTE (QUA) ---
Progress Notes Subjective Date 05/09/17 Time 0737 Note Patient has had some vomiting episodes through the night, she's been afebrile, denies respiratory problems. On exam her lungs are clear, heart rate regular abdomen soft, she is guzzling orange juice but then has vomiting episodes. I reviewed urine culture obtained from admission which has now showing Streptococcus urinary tract infection. Objective Findings Last VS-Temp:98.2 B/P:138/91 Pulse:97 Resp:20 SaO2:95 ROOM AIR Last weight lbs:191 oz:0 K.636 Method:Bed Scales Assessment/Plan Problem List 1. Closed fracture of femur, neck 2. Diabetes 3. UTI (urinary tract infection) Patient condition Improving, nothing by mouth status, Reglan for vomiting, treat UTI that was present on admission. This inpt stay is expected to cross 2 MNs from start of care Yes at 0790
[2017-05-09 15:36] VITALS: BP 114/73
[2017-05-09 19:45] VITALS: BP 136/89
[2017-05-09 20:15] VITALS: BP 136/89
[2017-05-10 04:29] VITALS: BP 138/83
--- NOTE | 2017-05-10 07:54 | ACUTE CARE PROGRESS NOTE (QUA) ---
Progress Notes Subjective Date 05/10/17 Time 0750 Note Patient continues to have some "vomiting" episodes but these seem like more regurgitation episodes after she becomes nauseated and tries to clear her throat. She very much wishes to drink some water, and also thinks that she needs an enema because she is constipated. Lungs are clear, heart rate regular, she is talkative and alert. Her abdomen is slightly distended, diffuse swelling, no point tenderness or rebound or guarding. Distal extremities are well-perfused, Wilder catheter is draining clear yellow urine. Objective Findings Last VS-Temp:98.1 B/P:138/83 Pulse:105 Resp:22 SaO2:93 ROOM AIR Last weight lbs:191 oz:3 K.721 Method:Bed Scales Assessment/Plan Problem List 1. Closed fracture of femur, neck 2. Diabetes 3. UTI (urinary tract infection) 4. Postoperative urinary retention Patient condition Improving Plan: several problems today: 1. Nausea and vomiting with constipation. Fleets enema today, advance diet if no vomiting this morning to clear liquids. 2. UTI secondary to Streptococcus/Anne-Marie organisms. Add gentamicin for complete coverage. 3. Postoperative urinary retention, continue Wilder catheterization and antibiotic coverage. This may need to be addressed at her group home visit. 4. Diabetes. Good control, hold Januvia given her nausea. This inpt stay is expected to cross 2 MNs from start of care Yes at 0753
[2017-05-10 08:08] VITALS: BP 131/88
[2017-05-10 09:47] VITALS: BP 131/88
--- NOTE | 2017-05-10 14:20 | CONSULT NOTE ---
Pharmacokinetic Consult Date of consult: 05/10/17 Time of consult: 1417 Referring provider: DR. FARR Reason for consult: GENTAMICIN DOSING Allergies: Coded Allergies: Penicillins (05/06/17) TOMATOES (FOOD) (From TOMATOES (FOOD/DRUG)) (UNKNOWN 05/06/17) egg (makes me break out 05/06/17) morphine ("MAKES HER CRAZY" 05/06/17) tomato (05/06/17) Home Medications: Active Scripts METFORMIN HCL (Metformin 1000MG) 1,000 MG PO BID #60 Prov: 02/25/11 Sitagliptin Phosphate (Januvia) 50 MG PO DAILY #30 Prov: 02/25/11 Irbesartan (Avapro) 150 MG PO DAILY #30 Prov: 02/25/11 Reported Medications Amitriptyline Hcl (Amitriptyline) 1 TAB PO QHS Furosemide 40 MG PO BID Cyanocobalamin (Vitamin B12) 250 MCG PO DAILY Pyridoxine Hcl (Vitamin B6) 50 MG PO DAILY Multiple Vitamin (Multivitamin) 1 TAB PO DAILY Calcium Carbonate (Tums) 500 MG PO PRN Simvastatin (Simvastatin 40MG Tab) 40 MG PO QHS Potassium Chloride (K-Dur) 20 MEQ PO DAILY #90 SAXAGLIPTIN HCL (Onglyza) 5 MG PO DAILY #90 Insulin Glargine (Lantus Insulin Vial) 20 UNITS SC QHS Gabapentin 600 MG PO QHS #45 Height (feet): 5 Height (inches): 7.00 Medical History: Angina: Yes [place]: Yes Hypertension? Yes Hyperlipidemia? Yes CHF? Yes COPD? No Asthma? No Hernia? Yes CVA? No Seizures? No Diabetes? Yes Insulin Dependent: Yes Insulin Pump: No Home FSBS? Yes UTI? Yes Stones? Yes GB Disease: Yes Hepatitis? No Cataracts? No Glaucoma? No MRSA? No TB? No Cancer? No Labs: Laboratory Tests 05/10/17 1129: POC Glucose 229 H 05/10/17 0619: POC Glucose 247 H 05/09/17 2015: POC Glucose 236 H 05/09/17 1641: POC Glucose 279 H Problem List: 1. UTI (urinary tract infection) Plan: BASED ON PATIENT FACTORS, RECOMMEND GENTAMICIN 400 MG IV Q24H. WILL OBTAIN LEVELS AT 4 AND 12 HOURS POST INFUSION. PHARMACY WILL FOLLOW DAILY AND ADJUST APPROPRIATE. at [phone]
[2017-05-10 16:10] VITALS: BP 124/73
[2017-05-10 20:10] VITALS: BP 116/70
[2017-05-10 20:17] VITALS: BP 116/70
[2017-05-11 04:20] VITALS: BP 102/66
[2017-05-11 07:14] LABS: LYMPH # 1.2 K/mm3 (0.7-4.5); LYMPH % 15.9 % (10-50.0)
--- NOTE | 2017-05-11 08:06 | ACUTE CARE PROGRESS NOTE (QUA) ---
Progress Notes Subjective Date 05/11/17 Time 0804 Note Patient did well with sips and chips of ice yesterday. Has no vomiting. Is now hungry. Patient has good air movement. Heart rate regular, abdomen soft, Wilder catheter draining clear yellow urine. Able to wiggle toes well with warm and well perfused extremities. Objective Findings Last VS-Temp:98.3 B/P:102/66 Pulse:111 Resp:22 SaO2:91 ROOM AIR Last weight lbs:183 oz:1 K.036 Method:Bed Scales Assessment/Plan Problem List 1. Closed fracture of femur, neck 2. Diabetes 3. UTI (urinary tract infection) 4. Postoperative urinary retention Patient condition Improving Plan: continue current care, advance diet, if tolerates this well we'll transition to by mouth antibiotics for her UTI and transfer to senior care for ongoing skilled rehab. This inpt stay is expected to cross 2 MNs from start of care Yes at 0805
--- NOTE | 2017-05-11 08:06 | ACUTE CARE PROGRESS NOTE (QUA) ---
Progress Notes Subjective Date 05/11/17 Time 0804 Note Patient did well with sips and chips of ice yesterday. Has no vomiting. Is now hungry. Patient has good air movement. Heart rate regular, abdomen soft, Wilder catheter draining clear yellow urine. Able to wiggle toes well with warm and well perfused extremities. Objective Findings Last VS-Temp:98.3 B/P:102/66 Pulse:111 Resp:22 SaO2:91 ROOM AIR Last weight lbs:183 oz:1 K.036 Method:Bed Scales Assessment/Plan Problem List 1. Closed fracture of femur, neck 2. Diabetes 3. UTI (urinary tract infection) 4. Postoperative urinary retention Patient condition Improving Plan: continue current care, advance diet, if tolerates this well we'll transition to by mouth antibiotics for her UTI and transfer to [facility] for ongoing skilled rehab. This inpt stay is expected to cross 2 MNs from start of care Yes at 0805
[2017-05-11] MEDS ORDERED: HYDROCODONE/ACE1 TA9 PO (08:08)
[2017-05-11] MEDS ORDERED: CLINDAMYCIN HC300 MG PO (08:10)
[2017-05-11] MEDS ORDERED: TYLENOL325 MG PO (08:10)
--- NOTE | 2017-05-11 08:14 | DISCHARGE SUMMARY STANDARD ---
Demographics Admit date: 05/05/17 Discharge date: 05/11/17 History of present illness History of present illness 77 year old female with a history of HTN, hyperlipidemia, and diabetes was transported via EMS to the ED for left hip pain s/p fall at 1000 this morning. Patient reports her shoe slipped resulting in the fall from standing position onto concrete. Patient was unable to get up and phone for help. She was found by family at 1200 laying in the floor on her left side. In the ED, she was found to have a left femoral neck fracture. CXR and pelvis films were unremarkable. Patient was admitted to acute care for orthopedic consult and surgical repair. Hospital Course Hospital Course: Patient was admitted, orthopedic consultation was obtained, patient was deemed an appropriate candidate for surgery and underwent repair of her RIGHT femoral neck fracture the day after admission. She tolerated this well. She initially did well but developed some nausea and vomiting and urinary retention. Wilder catheter was reinserted and patient felt better, continue to have some nausea and vomiting. Culture from admission at that point grew a Streptococcus species and she was placed on intravenous ceftriaxone to cover this which improved her vomiting situation over the next couple of days. This morning she was doing well, had had no vomiting or 12 hours, diet was advanced appropriately and patient did well with this. Exam this morning reveals that she is alert. Talkative. Very oriented 2 but a little fuzzy about the date. She has some tangential thinking as it relates to her previous history of some anxiety disorders. Lungs are clear, heart rate regular. Abdomen soft, RIGHT leg in appropriate positioning with wedge pillow device. Good distal pulses, feet are both warm and well-perfused and she is able to rotate her ankles and wiggle toes appropriately bilaterally. Wilder catheter is draining clear yellow urine. Plan will be to discharge to [facility] today. She'll need PT/ OT evaluation. She will need to have her Wilder catheter continued, and bladder training can begin as per facility protocol tomorrow. She'll need to have clindamycin as prescribed for her UTI treatment. [place] was written for her pain, this should be short-term. Tylenol can be used for mild pain. Other medications are on the medication reconciliation list. Please note that I have stopped her home Januvia given her mild nausea and I've also stopped her evening amitriptyline given its high fall risk and dangerous medication status in the elderly. If she has insomnia she can use melatonin 5 mg daily at bedtime when necessary. Discharge diagnoses Problem List 1. Closed fracture of femur, neck 2. Diabetes 3. UTI (urinary tract infection) 4. Postoperative urinary retention Medications Medications: Discharge meds are as noted. Follow up Follow up in office in: 2 DAYS with: Yun Smith APRN at 0813
[2017-05-11 08:27] VITALS: BP 109/68
[2017-05-11 08:30] VITALS: BP 109/68
--- NOTE | 2017-05-11 11:00 | CONSULT NOTE ---
Pharmacokinetic Consult Date of consult: 05/11/17 Time of consult: 1029 Referring provider: DR. FARR Reason for consult: GENTAMICIN TROUGH LEVEL Allergies: Coded Allergies: Penicillins (05/06/17) TOMATOES (FOOD) (From TOMATOES (FOOD/DRUG)) (UNKNOWN 05/06/17) egg (makes me break out 05/06/17) morphine ("MAKES HER CRAZY" 05/06/17) tomato (05/06/17) Home Medications: Active Scripts METFORMIN HCL (Metformin 1000MG) 1,000 MG PO BID #60 Prov: 02/25/11 Irbesartan (Avapro) 150 MG PO DAILY #30 Prov: 02/25/11 Discontinued Scripts Sitagliptin Phosphate (Januvia) 50 MG PO DAILY #30 Prov: 02/25/11 DC: 05/11/17 0807 Reported Medications Cyanocobalamin (Vitamin B12) 250 MCG PO DAILY Pyridoxine Hcl (Vitamin B6) 50 MG PO DAILY Multiple Vitamin (Multivitamin) 1 TAB PO DAILY Calcium Carbonate (Tums) 500 MG PO PRN Simvastatin (Simvastatin 40MG Tab) 40 MG PO QHS Potassium Chloride (K-Dur) 20 MEQ PO DAILY #90 SAXAGLIPTIN HCL (Onglyza) 5 MG PO DAILY #90 Insulin Glargine (Lantus Insulin Vial) 20 UNITS SC QHS Gabapentin 600 MG PO QHS #45 Discontinued Reported Medications Amitriptyline Hcl (Amitriptyline) 1 TAB PO QHS Furosemide 40 MG PO BID Height (feet): 5 Height (inches): 7.00 Medical History: Angina: Yes [place]: Yes Hypertension? Yes Hyperlipidemia? Yes CHF? Yes COPD? No Asthma? No Hernia? Yes CVA? No Seizures? No Diabetes? Yes Insulin Dependent: Yes Insulin Pump: No Home FSBS? Yes UTI? Yes Stones? Yes GB Disease: Yes Hepatitis? No Cataracts? No Glaucoma? No MRSA? No TB? No Cancer? No Labs: Laboratory Tests 05/11/17 0935: Gentamicin Trough 1.7 05/11/17 0707: POC Glucose 227 H 05/11/17 0700: Sodium 143, Potassium 3.8, Chloride 107, Carbon Dioxide 23, BUN 34 H, Creatinine 1.0, Estimated Creat Clear 61, Estimated GFR (MDRD) 54 L, Glucose 203 H, Calcium 8.7, Total Bilirubin 0.5, AST 18, ALT 15, Alkaline Phosphatase 48, Total Protein 6.0 L, Albumin 2.2 L, Globulin 3.8 H, Albumin/Globulin Ratio 0.6 L, WBC 7.8, RBC 3.34 L, Hgb 10.0 L, Hct 30.9 L, MCV 92.6, RDW 12.9 , Plt Count 289, MPV 8.0, Gran % 76.1, Gran # 5.9, Lymphocytes % 15.9, Monocytes % 7.2, Eosinophils % 0.5, Basophils % 0.2, Lymphocytes # 1.2, Monocytes # 0.6, Eosinophils # 0.0, Basophils # 0.0, PUBS MCHC 32.3, MCH 29.9 05/10/17 2340: Random Gentamicin 3.3 L 05/10/17 2200: POC Glucose 217 H 05/10/17 1641: POC Glucose 178 H 05/10/17 1620: Random Gentamicin 6.2 05/10/17 1129: POC Glucose 229 H Problem List: 1. UTI (urinary tract infection) Plan: 4.5-HOUR POST-INFUSION: 6.2 MCG/ML CALCULATED PEAK: 8.32 MCG/ML 12-HOUR POST-INFUSION: 3.3 MCG/ML CALCULATED TROUGH: 1.20 MCG/ML GENTAMICIN TROUGH LEVE: 1.7 MCG/ML BASED ON LEVELS AND PATIENT FACTORS, RECOMMEND HOLDING DOSE THIS MORNING. PATIENT WILL BE DISCHARGED HOME TODAY. at 1100
[2017-05-11 12:00] VITALS: BP 109/68
== END 2017-05-11 12:00 | DRG 470 ==
LOC: ER 12:32 → 2ND 15:16 → ER 15:16 → 2ND 15:57
PROVIDERS: Emergency Medicine; Internal Medicine Adolescent Medicine; Orthopaedic Surgery
PROC: 0SRB04A Replacement of Left Hip Joint with Ceramic on Polyethylene Synthetic Substitute, Uncemented, Open Approach (ICD-10-PCS; principal; 2017-05-05)
DX: S72.012A Unspecified intracapsular fracture of left femur, initial encounter for closed fracture (principal); E11.9 Type 2 diabetes mellitus without complications; I10 Essential (primary) hypertension; W01.0XXA Fall on same level from slipping, tripping and stumbling without subsequent striking against object, initial encounter; Y92.018 Other place in single-family (private) house as the place of occurrence of the external cause; Z79.4 Long term (current) use of insulin; R33.8 Other retention of urine; N99.89 Other postprocedural complications and disorders of genitourinary system
CPT/HCPCS: C1713; C1776; G0238; J2405

== ENCOUNTER 2017-05-12 13:54 | Inpatient (IN) | payer MEDICARE, MEDICAID ==
[~2017-05-12] VITALS: Ht 170.2 cm; Wt 95.4 kg
[~2017-05-12 13:54] MED LIST changes: +CLINDAMYCIN HC300 MG PO; +GABAPENTIN600 MG PO; +HYDROCODONE/ACE1 TA9 PO; +K-DUR 2020 MEQ PO; +ONGLYZA5 MG PO; +TYLENOL325 MG PO
[2017-05-12 13:56] VITALS: BP 108/45
--- OUTSIDE RECORDS SUMMARY | 2017-05-12 14:18 | External Medical Summary Rpt | Continuity of Care Document ---
Author Author Organization Address Unknown Phone Unavailable Care Team Providers Care Yardage Estimator Name Role Phone , Unavailable Unavailable EMS Current Medications Section EMS Allergies and Adverse Reactions EMS Past Medical History Medications Administered Section EMS Procedures Performed EMS Vital Signs EMS Patient Care Report Narrative Called for transfer of 77 year old female with a hip fracture to [place]. She had just had surgery on her left hip. Upon arrival to [facility] she was laying in her bed where we moved her to the stretcher draw sheet x4 and secured safety strap x3. Patient was taken to the ambulance where a set of baseline vitals were taken and then monitored during transport. She complained of hip pain that was a 6/10. On arrival to [place] she was moved to her bed draw sheet x4. Corazon Molina was informed the the patient had a new prescription for hydrocodone. Care was transferred without incident to intermediate staff.
--- OUTSIDE RECORDS SUMMARY | 2017-05-12 14:18 | External Medical Summary Rpt | Continuity of Care Document ---
Author Author Organization Address Unknown Phone Unavailable Care Team Providers Care Medical Device Sales Name Role Phone , Unavailable Unavailable EMS Current Medications Section EMS Allergies and Adverse Reactions EMS Past Medical History Medications Administered Section EMS Procedures Performed EMS Vital Signs EMS Patient Care Report Narrative Called for transfer of 77 year old female with a hip fracture to [place]. She had just had surgery on her left hip. Upon arrival to [facility] she was laying in her bed where we moved her to the stretcher draw sheet x4 and secured safety strap x3. Patient was taken to the ambulance where a set of baseline vitals were taken and then monitored during transport. She complained of hip pain that was a 6/10. On arrival to [place] she was moved to her bed draw sheet x4. Corazon Molina was informed the the patient had a new prescription for hydrocodone. Care was transferred without incident to shelter staff.
--- OUTSIDE RECORDS SUMMARY | 2017-05-12 14:18 | External Medical Summary Rpt | Continuity of Care Document ---
Author Author Organization Address Unknown Phone Unavailable Care Team Providers Care Elder Counselor Name Role Phone , Unavailable Unavailable EMS Current Medications Section EMS Allergies and Adverse Reactions EMS Past Medical History Medications Administered Section EMS Procedures Performed EMS Vital Signs EMS Patient Care Report Narrative Called for transfer of 77 year old female with a hip fracture to [place]. She had just had surgery on her left hip. Upon arrival to [facility] she was laying in her bed where we moved her to the stretcher draw sheet x4 and secured safety strap x3. Patient was taken to the ambulance where a set of baseline vitals were taken and then monitored during transport. She complained of hip pain that was a 6/10. On arrival to [place] she was moved to her bed draw sheet x4. Corazon Molina was informed the the patient had a new prescription for hydrocodone. Care was transferred without incident to alf staff.
--- OUTSIDE RECORDS SUMMARY | 2017-05-12 14:18 | External Medical Summary Rpt | Continuity of Care Document ---
Author Author Organization Address Unknown Phone Unavailable Care Team Providers Care Vessel Manager Name Role Phone , Unavailable Unavailable EMS Current Medications Section EMS Allergies and Adverse Reactions EMS Past Medical History Medications Administered Section EMS Procedures Performed EMS Vital Signs EMS Patient Care Report Narrative Called for transfer of 77 year old female with a hip fracture to [place]. She had just had surgery on her left hip. Upon arrival to [facility] she was laying in her bed where we moved her to the stretcher draw sheet x4 and secured safety strap x3. Patient was taken to the ambulance where a set of baseline vitals were taken and then monitored during transport. She complained of hip pain that was a 6/10. On arrival to [place] she was moved to her bed draw sheet x4. Corazon Molina was informed the the patient had a new prescription for hydrocodone. Care was transferred without incident to senior care staff.
[2017-05-12 14:21] LABS: URINE BLOOD 1+ (NEG)
--- OUTSIDE RECORDS SUMMARY | 2017-05-12 14:21 | External Medical Summary Rpt | CCD ---
Author Author , GAIL REYNOLDS Address Unknown Phone [email or web address] Purpose Continuity of Care Document - 05-05-2017 through 2016 Problems Code Diagnosis DOS Provider Status E11.40 TYPE 2 DIABETES MELLITUS WITH DIABETIC NEUROPATHY, UNSP S72.002A FRACTURE OF UNSP PART OF NECK OF LEFT FEMUR, INIT S72.009A FRACTURE OF UNSP PART OF NECK OF UNSP FEMUR, INIT Results Labs Lab Lab Date Result Refere Interp Status Commen Order Detail nces retati t Range on Glucose capillary blood glucometer (05-11-2017 11:48) Glucose 2 = 156 70-110 complet 017 mg/dl ed capilla 11:[address] Trough gentamicin level (05-11-2017 09:35) Trough 2 = 1.7 0-2.0 complet gentami 017 ug/ml ed tanya 09:35 level Glucose capillary blood glucometer (05-11-2017 07:07) Glucose = 227 70-110 complet 017 mg/dl ed capilla 07:[address] CBC w auto diff (05-11-2017 07:00) Blood 2 = 7.8 4.8-10. complet leukocy 017 K/MM3 8 ed jany 07:00 count (number /volume ) Automat = 12.9 11.5-17 complet ed 017 % .5 ed erythro 07:00 cyte distrib ution width Red = 3.34 4.2-5.4 complet blood 017 M/mm3 ed cell 07:00 count Blood = 289 142-424 complet platele 017 K/mm3 ed t count 07:00 Automat 2 = 8.0 7.4-10. complet ed 017 fl 4 ed blood 07:00 platele t mean volume kenneth Tarrant % = 7.2 % 1.7-9.3 complet 017 ed 07:00 Absolut 11-20-2 = 0.6 0.1-1.0 complet e 017 K/mm3 ed monocyt 07:00 e count Automat = 92.6 82.2-97 complet ed 017 fl .8 ed erythro 07:00 cyte mean corpusc ular v Automat = 32.3 31.8-35 complet ed 017 g/dl .4 ed erythro 07:00 cyte mean corpusc ular h Mean = 29.9 27-31.2 complet corpusc 017 pg ed ular 07:00 hemoglo bin (MCH) determ Lymphoc = 15.9 10-50.0 complet yte 017 % ed count, 07:00 blood, automat ed Absolut = 1.2 0.7-4.5 complet e 017 K/mm3 ed lymphoc 07:00 yte count Blood = 10.0 12.2-16 complet hemoglo 017 g/dL .2 ed bin 07:00 measure ment (mass/v olum Blood = 30.9 37.0-47 complet hematoc 017 % .0 ed rit 07:00 (volume fractio n) Granulo = 76.1 37.0-80 complet cyte 017 % .0 ed percent 07:00 age Blood = 5.9 1.8-7.8 complet granulo 017 K/mm3 ed cytes 07:00 automat ed count (numb Automat = 0.5 % 0.1-12. complet ed 017 0 ed blood 07:00 eosinop hils/10 0 leukocy t Automat = 0.0 0.0-0.4 complet ed 017 K/mm3 ed blood 07:00 eosinop hil count Baso % = 0.2 % 0.1-2.0 complet 017 ed 07:00 Automat = 0.0 0-0.2 complet ed 017 K/MM3 ed blood 07:00 basophi l count (count/ vo Comprehensive metabolic panel (05-11-2017 07:00) Serum = 34 7-18 complet or 017 mg/dL ed plasma 07:00 urea nitroge n measure men Serum 20-2 = 0.5 0.2-1.0 complet or 017 mg/dL ed plasma 07:00 total bilirub in measure m Serum 20-2 = 48 46-116 complet or 017 U/L ed plasma 07:00 alkalin e phospha tase kenneth Serum 20-2 = 2.2 3.4-5.0 complet or 017 gm/dL ed plasma 07:00 albumin measure ment (mas Protein 20-2 = 6.0 6.4-8.2 complet total 017 gm/dL ed ser/aly 07:00 s ALT 20-2 = 15 12-78 complet (SGPT) 017 U/L ed ser/aly 07:00 s Serum 11-20-2 = 18 15-37 complet or 017 U/L ed plasma 07:00 asparta te aminotr ansfera Serum 20-2 = 143 136-145 complet sodium 017 mmoL/L ed measure 07:00 ment Serum 20-2 = 3.8 3.5-5.1 complet potassi 017 mmoL/L ed um 07:00 measure ment Serum 20-2 = 203 74-106 complet or 017 mg/dL ed plasma 07:00 glucose measure ment (mas Serum 05-11-2 = 3.8 1.3-3.2 complet globuli 017 gm/dL ed n 07:00 measure ment (mass/v olume) Estimat 11-20-2 = 54 59- complet ed 017 ML/MIN ed glomeru 07:00 lar filtrat ion rate (GF Comment: REFERENCE RANGE: >60 ML/MIN/1.73 SQUARE METERS Comment: If this patient is -Hungarian, then multiply the Comment: result by 1.210. Estimat 11-20-2 = 61 50-200 complet ion of 017 ML/MIN ed creatin 07:00 ine renal clearan ce Serum 20-2 = 1.0 0.55-1. complet or 017 mg/dL 02 ed plasma 07:00 creatin ine measure ment ( Carbon 20-2 = 23 21.0-32 complet dioxide 017 mmoL/L .0 ed 07:00 measure ment Serum 1120-2 = 107 98-107 complet or 017 mmoL/L ed plasma 07:00 chlorid e measure ment (mo Serum -20-2 = 8.7 8.5-10. complet or 017 mg/dL 1 ed plasma 07:00 calcium measure ment (mas Serum 11-20-2 = 0.6 1.1-1.8 complet or 017 ed plasma 07:00 albumin /globul in mass ra Serum or plasma gentamicin measurement ( (05-10-2017 23:40) Comment: COMMENTS TO BMX RIDER: DO NOT NEED TO CALL PHARMACIST ON Comment: CALL WITH LEVEL Serum 11-19-2 = 3.3 4.0-10. complet or 017 ug/ml 0 ed plasma 23:40 gentami tanya measure ment ( Glucose capillary blood glucometer (05-10-2017 22:00) Glucose 11--2 = 217 70-110 complet 017 mg/dl ed capilla 22:[address] Glucose capillary blood glucometer (05-10-2017 16:41) Glucose 11-19-2 = 178 70-110 complet 017 mg/dl ed capilla 16:[address] Serum or plasma gentamicin measurement ( (05-10-2017 16:20) Comment: COMMENTS TO BMX RIDER: DO NOT NEED TO CALL PHARMACIST ON Comment: CALL WITH LEVEL Serum 11-19-2 = 6.2 4.0-10. complet or 017 ug/ml 0 ed plasma 16:20 gentami tanya measure ment ( Glucose capillary blood glucometer (05-10-2017 11:29) Glucose -19-2 = 229 70-110 complet 017 mg/dl ed capilla 11:[address] Streptococcus pneumoniae automated antibiotic susceptibility test (05-10-2017 06:22) Vancomy 11-19-2 <= 0.5 complet tanya 017 ug/ml ed suscept 06:22 ibility test by minimum inhibit ory concent ration Levoflo -19-2 = 4 complet xacin 017 ug/ml ed suscept 06:22 ibility test by minimum inhibit ory concent ration Erythro 05-10-2 <= 0.12 complet mycin 017 ug/ml ed suscept 06:22 ibility test by minimum inhibit ory concent ration Cefotax 05-10-2 <= 0.12 complet aleida 017 ug/ml ed suscept 06:22 ibility test by minimum inhibit ory concent ration Ceftria 11-19-2 <= 0.12 complet xone 017 ug/ml ed suscept 06:22 ibility test by minimum inhibit ory concent ration Clindam 11-19-2 <= 0.25 complet ycin 017 ug/ml ed suscept 06:22 ibility test by minimum inhibit ory concent ration Ampicil 11-19-2 <= 0.25 complet [place] 017 ug/ml ed suscept 06:22 ibility test by minimum inhibit ory concent ration Gram negative automated antibiotic susceptibility test (05-10-2017 06:22) Vancomy 11-19-2 <= 0.5 complet tanya 017 ug/ml ed suscept 06:22 ibility test by minimum inhibit ory concent ration Tetracy 11-19-2 <= 1 complet soto 017 ug/ml ed suscept 06:22 ibility test by minimum inhibit ory concent ration Rifampi 11-19-2 <= 0.5 complet n 017 ug/ml ed suscept 06:22 ibility test by minimum inhibit ory concent ration Penicil 11-19-2 = 0.25 complet [place] G 017 ug/ml ed suscept 06:22 ibility test by minimum inhibit ory concent ration Oxacill 11-19-2 >= 4 complet in 017 ug/ml ed suscept 06:22 ibility test by minimum inhibit ory concent ration Levoflo 11-19-2 <= 0.12 complet xacin 017 ug/ml ed suscept 06:22 ibility test by minimum inhibit ory concent ration Gentami 11-19-2 <= 0.5 complet tanya 017 ug/ml ed suscept 06:22 ibility test by minimum inhibit ory concent ration Nitrofu 11-19-2 = 32 complet rantoin 017 ug/ml ed 06:22 suscept ibility test by minimum inhibit ory concent ration Erythro 11-19-2 >= 8 complet mycin 017 ug/ml ed suscept 06:22 ibility test by minimum inhibit ory concent ration Clindam 11-19-2 >= 8 complet ycin 017 ug/ml ed suscept 06:22 ibility test by minimum inhibit ory concent ration Glucose capillary blood glucometer (05-10-2017 06:19) Glucose 05-10-2 = 247 70-110 complet 017 mg/dl ed capilla 06:[address] Glucose capillary blood glucometer (05-09-2017 20:15) Glucose 05-09-2 = 236 70-110 complet 017 mg/dl ed capilla 20:[address] Glucose capillary blood glucometer (05-09-2017 16:41) Glucose 05-09-2 = 279 70-110 complet 017 mg/dl ed capilla 16:[address] Glucose capillary blood glucometer (05-09-2017 11:23) Glucose 05-09-2 = 243 70-110 complet 017 mg/dl ed capilla 11:[address] Glucose capillary blood glucometer (05-09-2017 06:06) Glucose 2 = 274 70-110 complet 017 mg/dl ed capilla 06:[address] Glucose capillary blood glucometer (05-08-2017 22:04) Glucose 2 = 268 70-110 complet 017 mg/dl ed capilla 22:[address] Urinalysis with microscopy (05-08-2017 18:12) Comment: Collected by nurse? Y Comment: Hold specimen in OE? N Urine = OCC O complet leukocy 017 wbc/hpf ed jany 18:12 count (number /volume ) Urine 0.2 0.2 NEG complet urobili 017 L ed nogen 18:12 E.U./dL detecti on by test str [place] 3-5 3-5 0-5 complet s 017 L ed epithel 18:12 #/hpf ial cells detecti on in u Urine = 1.025 1.005-1 complet specifi 017 .030 ed c 18:12 gravity measure ment Erythro 20-50 0 complet cytes 017 20-50 L ed detecti 18:12 on in rbc/hpf urine sedimen t Urine = TRACE NEG complet protein 017 mg/dL ed 18:12 measure ment by automat ed t Urine = 6.0 5.0-8.5 complet pH 017 ed 18:12 Urine NEGATIV NEG complet nitrite 017 E ed 18:12 NEGATIV detecti E L on by test strip Mucus 11-17-2 NEGATIV NEG complet detecti 017 E ed on in 18:12 NEGATIV urine E L sedimen t by lig Urine 2+ 2+ L NEG complet ketones 017 mg/dL ed 18:12 detecti on by automat ed jany Hyaline OCC OCC NONE complet casts 017 L ed detecti 18:12 #/lpf on in urine sedimen Glucose = TRACE NEG complet ur 017 ed test 18:12 strip Urine YELLOW YELLOW complet color 017 YELLOW ed 18:12 L Urine 3+ 3+ L NEG complet blood 017 ed detecti 18:12 on Urine 1+ 1+ L NEG complet total 017 ed bilirub 18:12 in detecti on by test Comment: ICTOTEST = NEGATIVE Bacteri 2+ 2+ L O complet a 017 ed detecti 18:12 on in urine sedimen t by Urine CLEAR CLEAR complet appeara 017 CLEAR L ed nce 18:12 determi nation Urinalysis dipstick W Reflex Microscopic panel in Urine (05-08-2017 18:12) Bacteri 2+ O complet a 017 ed [Presen 18:12 ce] in Urine sedimen t by Light microsc opy Hyaline OCC NONE complet casts 017 ed [Presen 18:12 ce] in Urine sedimen t by Light microsc opy Erythro 20-50 0 complet cytes 017 ed [Presen 18:12 ce] in Urine sedimen t by Light microsc opy Epithel 3-5 0#/hp complet ial 017 f - ed cells.s 18:12 5#/hp quamous f [Presen ce] in Urine sedimen t by Microsc opy high power field Urinalysis dipstick W Reflex Microscopic panel in Urine (05-08-2017 18:12) Appeara CLEAR CLEAR complet nce of 017 ed Urine 18:12 Bilirub 1+ NEG Abnorma complet in 017 l ed [Presen 18:12 ce] in Urine by Test strip Erythro 3+ NEG Abnorma complet cytes 017 l ed [Presen 18:12 ce] in Urine Color YELLOW YELLOW complet of 017 ed Urine 18:12 Ketones 2+ NEG Abnorma complet 017 l ed [Presen 18:12 ce] in Urine by Automat ed test strip Mucus NEGATIV NEG complet [Presen 017 E ed ce] in 18:12 Urine sedimen t by Light microsc opy Nitrite NEGATIV NEG complet 017 E ed [Presen 18:12 ce] in Urine by Test strip Urobili 0.2 NEG complet nogen 017 ed [Presen 18:12 ce] in Urine by Test strip Glucose capillary blood glucometer (05-08-2017 17:12) Glucose = 262 70-110 complet 017 mg/dl ed capilla 17:[address] Glucose capillary blood glucometer (05-08-2017 11:45) Glucose = 258 70-110 complet 017 mg/dl ed capilla 11:[address] CBC w auto diff (05-08-2017 08:20) Blood = 140 142-424 complet platele 017 K/mm3 ed t count 08:20 Red = 3.05 4.2-5.4 complet blood 017 M/mm3 ed cell 08:20 count Automat = 12.6 11.-17 complet ed 017 % .5 ed erythro 08:20 cyte distrib ution width Blood = 8.9 4.8-10. complet leukocy 017 K/MM3 8 ed jany 08:20 count (number /volume ) Automat = 0.0 0-0.2 complet ed 017 K/MM3 ed blood 08:20 basophi l count (count/ vo Baso % = 0.2 % 0.1-2.0 complet 017 ed 08:20 Automat = 8.2 7.4-10. complet ed 017 fl 4 ed blood 08:20 platele t mean volume kenneth Tarrant % = 5.7 % 1.7-9.3 complet 017 ed 08:20 Absolut = 0.5 0.1-1.0 complet e 017 K/mm3 ed monocyt 08:20 e count Automat = 90.6 82.2-97 complet ed 017 fl .8 ed erythro 08:20 cyte mean corpusc ular v Automat = 33.7 31.8-35 complet ed 017 g/dl .4 ed erythro 08:20 cyte mean corpusc ular h Mean = 30.5 27-31.2 complet corpusc 017 pg ed ular 08:20 hemoglo bin (MCH) determ Lymphoc = 15.5 10-50.0 complet yte 017 % ed count, 08:20 blood, automat ed Absolut = 1.4 0.7-4.5 complet e 017 K/mm3 ed lymphoc 08:20 yte count Blood = 9.3 12.2-16 complet hemoglo 017 g/dL .2 ed bin 08:20 measure ment (mass/v olum Blood = 27.6 37.0-47 complet hematoc 017 % .0 ed rit 08:20 (volume fractio n) Granulo = 78.0 37.0-80 complet cyte 017 % .0 ed percent 08:20 age Blood = 7.0 1.8-7.8 complet granulo 017 K/mm3 ed cytes 08:20 automat ed count (numb Automat = 0.7 % 0.1-12. complet ed 017 0 ed blood 08:20 eosinop hils/10 0 leukocy t Automat = 0.1 0.0-0.4 complet ed 017 K/mm3 ed blood 08:20 eosinop hil count Basic metabolic panel (05-08-2017 08:20) Serum = 135 136-145 complet sodium 017 mmoL/L ed measure 08:20 ment Serum = 3.2 3.5-5.1 complet potassi 017 mmoL/L ed um 08:20 measure ment Serum = 197 74-106 complet or 017 mg/dL ed plasma 08:20 glucose measure ment (mas Estimat = 81 59- complet ed 017 ML/MIN ed glomeru 08:20 lar filtrat ion rate (GF Comment: REFERENCE RANGE: >60 ML/MIN/1.73 SQUARE METERS Comment: If this patient is -Hungarian, then multiply the Comment: result by 1.210. Estimat 2 = 83 50-200 complet ion of 017 ML/MIN ed creatin 08:20 ine renal clearan ce Serum = 0.7 0.55-1. complet or 017 mg/dL 02 ed plasma 08:20 creatin ine measure ment ( Carbon = 29 21.0-32 complet dioxide 017 mmoL/L .0 ed 08:20 measure ment Serum = 101 98-107 complet or 017 mmoL/L ed plasma 08:20 chlorid e measure ment (mo Serum = 8.4 8.5-10. complet or 017 mg/dL 1 ed plasma 08:20 calcium measure ment (mas Serum = 10 7-18 complet or 017 mg/dL ed plasma 08:20 urea nitroge n measure men Glucose capillary blood glucometer (05-08-2017 06:03) Glucose 05-08-2 = 175 70-110 complet 017 mg/dl ed capilla 06:[address] Glucose capillary blood glucometer (05-07-2017 20:19) Glucose 05-07-2 = 190 70-110 complet 017 mg/dl ed capilla 20:[address] Glucose capillary blood glucometer (05-07-2017 18:24) Glucose 05-07-2 = 240 70-110 complet 017 mg/dl ed capilla 18:[address] Glucose capillary blood glucometer (05-07-2017 11:42) Glucose 05-07-2 = 302 70-110 complet 017 mg/dl ed capilla 11:[address] Basic metabolic panel (05-07-2017 06:15) Serum 05-07-2 = 99 98-107 complet or 017 mmoL/L ed plasma 06:15 chlorid e measure ment (mo Serum 2 = 11 7-18 complet or 017 mg/dL ed plasma 06:15 urea nitroge n measure men Serum 2 = 8.7 8.5-10. complet or 017 mg/dL 1 ed plasma 06:15 calcium measure ment (mas Serum = 135 136-145 complet sodium 017 mmoL/L ed measure 06:15 ment Serum = 3.2 3.5-5.1 complet potassi 017 mmoL/L ed um 06:15 measure ment Serum = 265 74-106 complet or 017 mg/dL ed plasma 06:15 glucose measure ment (mas Estimat = 69 59- complet ed 017 ML/MIN ed glomeru 06:15 lar filtrat ion rate (GF Comment: REFERENCE RANGE: >60 ML/MIN/1.73 SQUARE METERS Comment: If this patient is -Hungarian, then multiply the Comment: result by 1.210. Estimat = 73 50-200 complet ion of 017 ML/MIN ed creatin 06:15 ine renal clearan ce Serum = 0.8 0.55-1. complet or 017 mg/dL 02 ed plasma 06:15 creatin ine measure ment ( Carbon = 30 21.0-32 complet dioxide 017 mmoL/L .0 ed 06:15 measure ment CBC w auto diff (05-07-2017 06:15) Blood = 8.2 4.8-10. complet leukocy 017 K/MM3 8 ed jany 06:15 count (number /volume ) Automat = 12.5 11.5-17 complet ed 017 % .5 ed erythro 06:15 cyte distrib ution width Red = 3.18 4.2-5.4 complet blood 017 M/mm3 ed cell 06:15 count Blood = 156 142-424 complet platele 017 K/mm3 ed t count 06:15 Automat = 8.1 7.4-10. complet ed 017 fl 4 ed blood 06:15 platele t mean volume kenneth [place]arrant % = 6.2 % 1.7-9.3 complet 017 ed 06:15 Absolut = 0.5 0.1-1.0 complet e 017 K/mm3 ed monocyt 06:15 e count Automat = 90.8 82.2-97 complet ed 017 fl .8 ed erythro 06:15 cyte mean corpusc ular v Automat = 33.3 31.8-35 complet ed 017 g/dl .4 ed erythro 06:15 cyte mean corpusc ular h Mean = 30.2 27-31.2 complet corpusc 017 pg ed ular 06:15 hemoglo bin (MCH) determ Lymphoc = 12.0 10-50.0 complet yte 017 % ed count, 06:15 blood, automat ed Absolut = 1.0 0.7-4.5 complet e 017 K/mm3 ed lymphoc 06:15 yte count Blood = 9.7 12.2-16 complet hemoglo 017 g/dL .2 ed bin 06:15 measure ment (mass/v olum Blood = 28.9 37.0-47 complet hematoc 017 % .0 ed rit 06:15 (volume fractio n) Granulo = 81.5 37.0-80 complet cyte 017 % .0 ed percent 06:15 age Blood = 6.6 1.8-7.8 complet granulo 017 K/mm3 ed cytes 06:15 automat ed count (numb Automat = 0.2 % 0.1-12. complet ed 017 0 ed blood 06:15 eosinop hils/10 0 leukocy t Automat = 0.0 0.0-0.4 complet ed 017 K/mm3 ed blood 06:15 eosinop hil count Baso % = 0.2 % 0.1-2.0 complet 017 ed 06:15 Automat = 0.0 0-0.2 complet ed 017 K/MM3 ed blood 06:15 basophi l count (count/ vo Glucose capillary blood glucometer (05-07-2017 06:14) Glucose = 276 70-110 complet 017 mg/dl ed capilla 06:[address] Glucose capillary blood glucometer (05-06-2017 21:06) Glucose = 411 70-110 complet 017 mg/dl ed capilla 21:[address] Blood type and screen (05-06-2017 10:00) Blood 05-06-2 A A L complet ABO 017 ed group 10:00 typing Materna 05-06-2 POSITIV NEGATIV complet l 017 E E ed antibod 10:00 POSITIV y E L screen Rh 11-15-2 POSITIV complet blood 017 E ed group 10:00 POSITIV typing E L Blood type & Indirect antibody screen panel in Blood (05-06-2017 10:00) Blood -15-2 POSITIV NEGATIV Abnorma complet group 017 E E l ed antibod 10:00 y screen [Presen ce] in Serum or Plasma Rh 11-15-2 POSITIV complet [Type] 017 E ed in 10:00 Blood ABO --2 A complet group 017 ed [Type] 10:00 in Blood Glucose capillary blood glucometer (05-06-2017 06:35) Glucose = 226 70-110 complet 017 mg/dl ed capilla 06:[address] Glucose capillary blood glucometer (05-05-2017 19:36) Glucose = 277 70-110 complet 017 mg/dl ed capilla 19:[address] Urine culture (05-05-2017 13:50) Urine [id number] complet culture 017 5 ed 13:50 Strepto coccus species SCT STSP STREPTO COCCUS SPECIES L Comment: Comment: * This is a corrected result. * Comment: Comment: A prior result that was reported as final has been changed. Urine GRAM complet culture 017 POSITIV ed 13:50 E BACILLU S SPECIES TO BE SENT TO Urine STREP complet culture 017 SPECIES ed 13:50 : STREP GALLOLY TICUS SSP. PASTEUR IANUS Urinalysis with microscopy (05-05-2017 13:50) Urine NEGATIV NEG complet ketones 017 E ed 13:50 NEGATIV detecti E L on by mg/dL automat ed jany Glucose = NEG complet ur 017 NEGATIV ed test 13:50 E strip Urine YELLOW YELLOW complet color 017 YELLOW ed 13:50 L Urine NEGATIV NEG complet blood 017 E ed detecti 13:50 NEGATIV on E L Urine NEGATIV NEG complet total 017 E ed bilirub 13:50 NEGATIV in E L detecti on by test Bacteri 4+ 4+ L O complet a 017 ed detecti 13:50 on in urine sedimen t by Urine SL CLEAR complet appeara 017 CLOUDY ed nce 13:50 SL determi CLOUDY nation L Urine = OCC O complet leukocy 017 wbc/hpf ed jany 13:50 count (number /volume ) Urine 0.2 0.2 NEG complet urobili 017 L ed nogen 13:50 E.U./dL detecti on by test str [place] NONE 0-5 complet s 017 NONE L ed epithel 13:50 #/hpf ial cells detecti on in u Urine = 1.010 1.005-1 complet specifi 017 .030 ed c 13:50 gravity measure ment Erythro NONE 0 complet cytes 017 NONE L ed detecti 13:50 rbc/hpf on in urine sedimen t Urine = NEG complet protein 017 NEGATIV ed 13:50 E mg/dL measure ment by automat ed t Urine = 7.0 5.0-8.5 complet pH 017 ed 13:50 Urine NEGATIV NEG complet nitrite 017 E ed 13:50 NEGATIV detecti E L on by test strip Mucus NEGATIV NEG complet detecti 017 E ed on in 13:50 NEGATIV urine E L sedimen t by lig Urinalysis dipstick W Reflex Microscopic panel in Urine (05-05-2017 13:50) Bacteri 4+ O complet a 017 ed [Presen 13:50 ce] in Urine sedimen t by Light microsc opy Erythro NONE 0 complet cytes 017 ed [Presen 13:50 ce] in Urine sedimen t by Light microsc opy Epithel NONE 0#/hp complet ial 017 f - ed cells.s 13:50 5#/hp quamous f [Presen ce] in Urine sedimen t by Microsc opy high power field Urinalysis dipstick W Reflex Microscopic panel in Urine (05-05-2017 13:50) Appeara SL CLEAR complet nce of 017 CLOUDY ed Urine 13:50 Bilirub NEGATIV NEG complet in 017 E ed [Presen 13:50 ce] in Urine by Test strip Erythro NEGATIV NEG complet cytes 017 E ed [Presen 13:50 ce] in Urine Color YELLOW YELLOW complet of 017 ed Urine 13:50 Ketones NEGATIV NEG complet 017 E ed [Presen 13:50 ce] in Urine by Automat ed test strip Mucus NEGATIV NEG complet [Presen 017 E ed ce] in 13:50 Urine sedimen t by Light microsc opy Nitrite NEGATIV NEG complet 017 E ed [Presen 13:50 ce] in Urine by Test strip Urobili 0.2 NEG complet nogen 017 ed [Presen 13:50 ce] in Urine by Test strip Magnesium measurement (05-05-2017 12:50) Magnesi = 1.7 1.7-2.8 complet um 017 mg/dL ed measure 12:50 ment Comprehensive metabolic panel (05-05-2017 12:50) Serum = 1.0 1.1-1.8 complet or 017 ed plasma 12:50 albumin /globul in mass ra Protein = 6.7 6.4-8.2 complet total 017 gm/dL ed ser/aly 12:50 s ALT = 19 12-78 complet (SGPT) 017 U/L ed ser/aly 12:50 s Serum = 23 15-37 complet or 017 U/L ed plasma 12:50 asparta te aminotr ansfera Serum = 136 136-145 complet sodium 017 mmoL/L ed measure 12:50 ment Serum = 3.4 3.5-5.1 complet potassi 017 mmoL/L ed um 12:50 measure ment Serum = 185 74-106 complet or 017 mg/dL ed plasma 12:50 glucose measure ment (mas Serum = 3.3 1.3-3.2 complet globuli 017 gm/dL ed n 12:50 measure ment (mass/v olume) Estimat = 61 59- complet ed 017 ML/MIN ed glomeru 12:50 lar filtrat ion rate (GF Comment: REFERENCE RANGE: >60 ML/MIN/1.73 SQUARE METERS Comment: If this patient is -Hungarian, then multiply the Comment: result by 1.210. Estimat = 101 50-200 complet ion of 017 ML/MIN ed creatin 12:50 ine renal clearan ce Serum = 0.9 0.55-1. complet or 017 mg/dL 02 ed plasma 12:50 creatin ine measure ment ( Carbon = 29 21.0-32 complet dioxide 017 mmoL/L .0 ed 12:50 measure ment Serum = 98 98-107 complet or 017 mmoL/L ed plasma 12:50 chlorid e measure ment (mo Serum = 9.3 8.5-10. complet or 017 mg/dL 1 ed plasma 12:50 calcium measure ment (mas Serum = 9 7-18 complet or 017 mg/dL ed plasma 12:50 urea nitroge n measure men Serum = 0.5 0.2-1.0 complet or 017 mg/dL ed plasma 12:50 total bilirub in measure m Serum = 60 46-116 complet or 017 U/L ed plasma 12:50 alkalin e phospha tase kenneth Serum = 3.4 3.4-5.0 complet or 017 gm/dL ed plasma 12:50 albumin measure ment (mas CBC w auto diff (05-05-2017 12:50) Mean = 30.3 27-31.2 complet corpusc 017 pg ed ular 12:50 hemoglo bin (MCH) determ Lymphoc = 20.5 10-50.0 complet yte 017 % ed count, 12:50 blood, automat ed Absolut = 1.3 0.7-4.5 complet e 017 K/mm3 ed lymphoc 12:50 yte count Blood = 12.3 12.2-16 complet hemoglo 017 g/dL .2 ed bin 12:50 measure ment (mass/v olum Blood = 36.1 37.0-47 complet hematoc 017 % .0 ed rit 12:50 (volume fractio n) Granulo = 73.3 37.0-80 complet cyte 017 % .0 ed percent 12:50 age Blood = 4.7 1.8-7.8 complet granulo 017 K/mm3 ed cytes 12:50 automat ed count (numb Automat = 0.9 % 0.1-12. complet ed 017 0 ed blood 12:50 eosinop hils/10 0 leukocy t Automat = 0.1 0.0-0.4 complet ed 017 K/mm3 ed blood 12:50 eosinop hil count Baso % = 0.4 % 0.1-2.0 complet 017 ed 12:50 Automat = 0.0 0-0.2 complet ed 017 K/MM3 ed blood 12:50 basophi l count (count/ vo Red = 4.07 4.2-5.4 complet blood 017 M/mm3 ed cell 12:50 count Automat = 12.3 11.5-17 complet ed 017 % .5 ed erythro 12:50 cyte distrib ution width Blood = 6.4 4.8-10. complet leukocy 017 K/MM3 8 ed jany 12:50 count (number /volume ) Blood = 174 142-424 complet platele 017 K/mm3 ed t count 12:50 Automat = 8.4 7.4-10. complet ed 017 fl 4 ed blood 12:50 platele t mean volume kenneth Tarrant % = 5.0 % 1.7-9.3 complet 017 ed 12:50 Absolut = 0.3 0.1-1.0 complet e 017 K/mm3 ed monocyt 12:50 e count Automat = 88.7 82.2-97 complet ed 017 fl .8 ed erythro 12:50 cyte mean corpusc ular v Automat = 34.1 31.8-35 complet ed 017 g/dl .4 ed erythro 12:50 cyte mean corpusc ular h
--- OUTSIDE RECORDS SUMMARY | 2017-05-12 14:21 | External Medical Summary Rpt | CCD ---
Author Author , GAIL REYNOLDS Address Unknown Phone [email or web address] Purpose Continuity of Care Document - 05-05-2017 [...] blood 07:00 platele t mean volume kenneth Craven % = 7.2 % 1.7-9.3 complet 017 [...] SQUARE METERS Comment: If this patient is -Armenian, then multiply the Comment: result by 1.210. 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 [...] SQUARE METERS Comment: If this patient is -Armenian, then multiply the Comment: result by 1.210. [...] blood 06:15 platele t mean volume kenneth Craven % = 6.2 % 1.7-9.3 complet 017 [...] glucome ter Urine culture (05-05-2017 13:50) Urine [id number] complet culture 017 5 ed 13:50 Strepto [...] SQUARE METERS Comment: If this patient is -Armenian, then multiply the Comment: result by 1.210. [...] blood 12:50 platele t mean volume kenneth Craven % = 5.0 % 1.7-9.3 complet 017 ed 12:50 Absolut = 0.3 0.1-1.0 complet e 017 K/mm3 ed monocyt 12:50 e count Automat = 88.7 82.2-97 complet ed 017 fl .8 ed erythro 12:50 cyte mean corpusc ular v Automat = 34.1 31.8-35 complet ed 017 g/dl .4 ed erythro 12:50 cyte mean corpusc ular h
--- OUTSIDE RECORDS SUMMARY | 2017-05-12 14:22 | External Medical Summary Rpt | CCD ---
Author Author GAIL Address Unknown Phone [email or web address] Purpose Continuity of Care Document - through 2016
--- OUTSIDE RECORDS SUMMARY | 2017-05-12 14:22 | External Medical Summary Rpt | CCD ---
Author Author GAIL Address Unknown Phone [email or web address] Purpose Continuity of Care Document - through 2016
--- OUTSIDE RECORDS SUMMARY | 2017-05-12 14:22 | External Medical Summary Rpt | CCD ---
Demographics Preferred Language Turkmen Marital Status Unknown Taoism Affiliation Unknown Race Unknown Ethnic Group Unknown Author Author , GAIL REYNOLDS Address Unknown Phone Immunization Unable to retrieve immunization data due to connection failure with Immunization Registry. Please try again later.
--- OUTSIDE RECORDS SUMMARY | 2017-05-12 14:22 | External Medical Summary Rpt | CCD ---
Demographics Preferred Language Danish Marital Status Unknown Jewish Affiliation Unknown Race Unknown Ethnic Group Unknown Author Author , GAIL REYNOLDS Address Unknown Phone Immunization Unable to retrieve immunization data due to connection failure with Immunization Registry. Please try again later.
--- NOTE | 2017-05-12 14:23 | Emergency Room Report ---
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 PT HAD HIP SURGERY ON THE . PATIENT WAS HYPOXIC IN THE SKILLED NURSING. WHEN EMS ARRIVED, PATIENT WAS LAYING FLAT IN BED ON 2LPM OXYGEN NASAL CANNULA. PT LETHARGIC, NOT ALERT AND ORIENTED. Onset of symptoms date/time:05/12/17 or onset unknown for: Treatment Prior to Arrival: EMS TRANSPORT, PLACED ON 4LPM NASAL CANNULA. 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 N Clinical Suspician of Infection? N Mental Status: 1 - Regular (Normal Baseline) Sepsis Risk: Have you (or family members/close friends) recently traveled outside the [place]? N If Yes, where/when: Have you had exposure to infectious disease within the past month? TB? Other? Specify: patient discharged from this facility s/p hip surgery, and sent to NH; NH reported hypoxia; on EMS arrival, patient was supine and placed upright with improvement of oxygen saturation. Patient is less alert than usual per staff who have worked with this patient during recent admission. She arrives with slight tachypnea, seems globally weak. ALLERGIES Coded Allergies: Penicillins (05/06/17) TOMATOES (FOOD) (From TOMATOES (FOOD/DRUG)) (UNKNOWN 05/06/17) egg (makes me break out 05/06/17) morphine ("MAKES HER CRAZY" 05/06/17) tomato (05/06/17) Home Medications Active Scripts METFORMIN HCL (Metformin 1000MG) 1,000 MG PO BID #60 Prov: 02/25/11 Irbesartan (Avapro) 150 MG PO DAILY #30 Prov: 02/25/11 HYDROCODONE/ACETAMINOPHEN (Hydrocodon-Acetaminophen 5-325) 1-2 TAB PO Q4HP PRN MODERATE TO SEVERE PAIN #24 TAB Prov: 05/11/17 Clindamycin Hcl (Clindamycin 300MG) 300 MG PO TID #15 CAP Prov: 05/11/17 Acetaminophen (Tylenol) 650 MG PO Q4HP PRN fever or mild pain #60 TAB Ref 1 Prov: 05/11/17 Discontinued Scripts Sitagliptin Phosphate (Januvia) 50 MG PO DAILY #30 Prov: 02/25/11 DC: 05/11/17 0807 Reported Medications Cyanocobalamin (Vitamin B12) 250 MCG PO DAILY Pyridoxine Hcl (Vitamin B6) 50 MG PO DAILY Multiple Vitamin (Multivitamin) 1 TAB PO DAILY Calcium Carbonate (Tums) 500 MG PO PRN Simvastatin (Simvastatin 40MG Tab) 40 MG PO QHS Potassium Chloride (K-Dur) 20 MEQ PO DAILY #90 SAXAGLIPTIN HCL (Onglyza) 5 MG PO DAILY #90 Insulin Glargine (Lantus Insulin Vial) 20 UNITS SC QHS Gabapentin 600 MG PO QHS #45 Discontinued Reported Medications Amitriptyline Hcl (Amitriptyline) 1 TAB PO QHS Furosemide 40 MG PO BID History Medical History General Angina: Yes HI: Yes Hypertension? Yes Hyperlipidemia? Yes CHF? Yes COPD? No Asthma? No Hernia? Yes CVA? No Seizures? No Diabetes? Yes Insulin Dependent: Yes Insulin Pump: No Home FSBS? Yes UTI? Yes Stones? Yes GB Disease: Yes Hepatitis? No Cataracts? No Glaucoma? No MRSA? No TB? No Cancer? 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 VEIN STRIPPING-LEGS RT OVARIAN TUMOR REMOVED (11 POUNDS) GALL STONES REMOVED Family History Family Hx Diabetes Yes CAD Yes Hypertension Yes Hyperlipidemia No Cancer Yes TB Yes Social History Smoking Hx Smoker: Never Smoker Tobacco: No Alcohol Alcohol: No Review of Systems All Other Systems Reviewed and Negative Respiratory see HPI Musculoskeletal see HPI Psychiatric/Neurological see HPI Physical Exam Vital Signs Vital Signs Date Time Temp Pulse Resp B/P Pulse O2 O2 Flow FiO2 Ox Delivery Rate 05/12 1811 88 05/12 1811 97.7 88 24 111/62 05/12 1811 90 OXYGEN 05/12 1752 97.7 88 24 111/62 90 4 05/12 1653 88 24 98/42 90 4 05/12 1606 82 24 90 05/12 1500 82 20 110/50 92 4 05/12 1356 97.7 80 26 108/45 97 4 General Appearance normal appearance, WD/WN, mild distress, Patient able to answer questions, seems globally weak, able to follow command to squeeze my hands but is too weak overall to do finger to nose or check for drift, so NIHSS not reliable in this setting. No drooling. She is leaning a little to the left side, but this appears to be the side that her hip was fractured on. Eye Exam - bilateral eye normal exam, bilateral eye PERRL, bilateral eye EOMI Neck normal inspection, non-tender, supple, full range of motion Respiratory Status Yes: trachea midline, chest symmetrical, non tender chest. No: respiratory distress, tender on palpation, use of accessory muscles, pain on inspiration, non productive cough (slightly tachypneic). Lung Sounds bilateral: normal breath sounds, lungs clear. Cardiovascular normal exam, regular rate/rhythm, no peripheral edema, no gallop, no JVD, no murmur, no rub, normal peripheral pulses Gastrointestinal normal bowel sounds, normal exam, non tender, soft, no organomegaly, no guarding, no rebound Extremities foam wedge noted; bandage L hip posteriorly is C/D/I. Patient not spontaneously moving legs due to foam wedge. Strength 3 Lower Ext (L), 3 Lower Ext (R) (wedge in place), 4 Upper Ext (L), 4 Upper Ext (R) Neurologic alert, normal exam, Exam very limited: follows commands, can answer questions, but seems globally weak, with weak but equal rn international, is listing a little to the left but also has had surgery to LLE/hip. No tremor. Speech clear. Not ambulatory. Edentulous but no drooling. Eyes track well. Glascow Coma Scale Glascow Coma Scale Response Value EYE response: 4 Spontaneously 4 MOTOR response: 6 OBEYS 6 VERBAL response: 5 Oriented & Converses 5 Total 15 Skin intact, warm/dry, pallor Medical Decision Making LABS/Meds/Orders Pt receiving controlled substance in ED? No Results/Orders Laboratory Tests 05/12/17 1440: Lactic Acid 2.0 05/12/17 1412: Sodium 143, Potassium 4.7, Chloride 107, Carbon Dioxide 28, BUN 35 H, Creatinine 1.3 H, Estimated Creat Clear 50, Estimated GFR (MDRD) 40 L, Glucose 225 H, Calcium 9.1, Total Bilirubin 0.4, AST 16, ALT 21, Alkaline Phosphatase 52, Creatine Kinase 59, CK-MB (CK-2) Rel Index 2.4, CK and CKMB Interp 1.4, Troponin I < 0.02, Total Protein 6.6, Albumin 2.5 L, Globulin 4.1 H, Albumin/ Globulin Ratio 0.6 L, D-Dimer 4560 *H, WBC 11.9 H, RBC 3.88 L, Hgb 11.3 L, Hct 36.4 L, MCV 93.7, RDW 13.1, Plt Count 423, MPV 8.1, Gran % 82.3 H, Gran # 9.8 H, Lymphocytes % 10.1, Monocytes % 6.8, Eosinophils % 0.2, Basophils % 0.6, Lymphocytes # 1.2, Monocytes # 0.8, Eosinophils # 0.0, Basophils # 0.1, PUBS MCHC 31.1 L, MCH 29.2, Urine Color YELLOW, Urine Appearance CLEAR, Urine pH 6.0 , Ur Specific Brawley >= 1.030, Urine Protein 1+ H, Urine Ketones NEGATIVE, Urine Blood 1+ H, Urine Nitrate NEGATIVE, Urine Bilirubin NEGATIVE, Urine Urobilinogen 0.2, Ur Leukocyte Esterase TRACE H, Urine RBC 5-10, Urine WBC 5-10 , Ur Squamous Epith Cells 3-5, Urine Bacteria 3+, Hyaline Casts 5-10, Fine Granular Casts OCC, Urine Glucose NEGATIVE Current Medication Orders Sig/Maxime Start time Last Medication Dose Route Stop Time Status Admin Clindamycin HCl 300 MG TID 05/12 2100 UNV PO 05/19 2059 Diagnostic Test (Pha) 1 EACH W/MEALS&HS 05/12 2100 UNV FS 07/11 2058 Gabapentin 600 MG QHS 05/12 2100 UNV PO Insulin Human [rDNA See Dose W/MEALS&HS 05/12 2100 UNV origin] Insts (1) SC Pantoprazole Sodium 40 MG BID 05/12 2100 UNV IV Sodium Chloride 10 ML PRN PRN 05/12 1800 UNV IV Acetaminophen 650 MG Q4HP PRN 05/12 1730 UNV PO Ondansetron HCl 4 MG Q6HP PRN 05/12 1730 UNV IV Sodium Chloride 10 ML PRN PRN 05/12 1730 UNV IV Potassium Chloride/ 1,000 ML .Q8H 05/12 1715 AC 05/12 Dextrose/Sod Cl IV 1710 Sodium Chloride 10 ML PRN PRN 05/12 1715 AC IV 05/13 1703 Potassium Chloride/ 1,000 ML .STK-MED ONE 05/12 1703 DC Dextrose/Sod Cl IV Iopamidol 60 ML ONCE ONE 05/12 1600 DC 05/12 IV 05/12 1601 1549 Sodium Chloride 10 ML ONCE ONE 05/12 1600 DC 05/12 IV 05/12 1601 1549 Sodium Chloride 50 ML ONCE ONE 05/12 1600 DC 05/12 IV 05/12 1601 1549 Sodium Chloride 10 ML PRN PRN 05/12 1400 AC IV 05/13 1357 Dose Instructions: (1)Insulin Human [rDNA origin]: SEE ADMIN CRITERIA FOR LOW INTENSITY SS Orders Procedure Date/time Status DIET-NOTHING BY MOUTH 05/13 B Active ABDOMEN-FLAT & UPRIGHT 05/13 0700 Active CBC WITH AUTO DIFF 05/13 0600 Active BASIC METABOLIC PROFILE 05/13 0600 Active DIET-NOTHING BY MOUTH 05/12 D Complete Decision to admit 05/[address] ABD/PELVIS REQ 05/12 1533 Complete CULTURE, URINE 05/12 1412 Active URINALYSIS/COMPLETE 05/[address] HEAD REQ 05/[address] CHEST SCAN REQ 05/12 1400 Complete ELECTROCARDIOGRAM REQUEST 05/12 1357 Active IV SALINE LOCK 05/12 1357 Active CULTURE, BLOOD 05/12 1357 Active LACTIC ACID 05/12 1357 Complete D-DIMER 05/12 1357 Complete CBC WITH AUTO DIFF 05/12 1357 Complete CARDIAC ENZYMES 05/12 1357 Complete CHEM 12 PROFILE 05/12 1357 Complete ADMIT PATIENT 05/12 UNK Active 12 LEAD EKG-LING (INITIAL) 05/12 UNK Active PULSE OXIMETRY REQUEST 05/12 UNK Active OXYGEN REQUEST 05/12 UNK Active VITAL SIGNS 05/12 UNK Active POM NURSE OSBALDO HOSE ORDER 05/12 UNK Active IV SALINE LOCK 05/12 UNK Active NG TUBE INSERT 05/12 UNK Active URINARY CATHETER INSERT 05/12 UNK Active CODE STATUS 05/12 UNK Active PATIENT ACTIVITY ORDER 05/12 UNK Active [facility] PHYS CONSULT 05/12 UNK Active CM/EKG CM/EKG EKG rate, NSR, rhythm, no ectopy, normal QRS, normal [place], normal EKG, compared w/(date of old) (02/24/11 old Q waves) XRAY/CT/US XRAY/CT/US [address] interpretation by reviewed by me (report reviewed) Time results known: 1611 CT Results normal/NAD XRAY/CT/US 2 XRAY chest (ileus) CT abdomen, pelvis, chest CT interpretation by reviewed by me (report reviewed) Time results known: 1638 CT Results abnormal, neg PE, pos ileus Consult MD Physician Consult Consult/PCP Dr. Ac admitting to Dr. Mtaa's service. Time Called 1638 Reason Pt. Condition Progress ED Progress Notes 1 Date 05/12/17 Time [address] results. ED Progress Notes 2 Date 05/12/17 Time [address] Stanford's operative note: patient's left femoral neck fracture underwent repair. This is c/w my physical examination and location of bandage, which is clean, dry, and intact. Departure Departure Time of Disposition 1655 Disposition Still a Patient Clinical Impression Primary Impression: Ileus Condition STABLE Referrals Daniel Mata MD (Family) ED Critical Care Critical Care No at 1957
--- OUTSIDE RECORDS SUMMARY | 2017-05-12 14:23 | External Medical Summary Rpt ---
Author Author [employer] Matthew, [employer] Organization [employer] Address Unknown Phone Unavailable Results Glucose [Mass/volume] in Capillary blood by Glucometer Observa Value Referen Units Interpr Notes Date tion ce etation Range Glucose 70 - 110 mg/dl High No May 11 [Mass/vol informati 2016 ume] in on in 11:48 AM Capillary source blood by data Glucomete r Gentamicin [Mass/volume] in Serum or Plasma --trough Observa Value Referen Units Interpr Notes Date tion ce etation Range Gentamici 0 - 2.0 ug/ml Normal No May 11 n informati 2016 9:35 [Mass/vol on in AM ume] in source Serum or data Plasma --trough Glucose [Mass/volume] in Capillary blood by Glucometer Observa Value Referen Units Interpr Notes Date tion ce etation Range Glucose 70 - 110 mg/dl High No May 11 [Mass/vol informati 2016 7:07 ume] in on in AM Capillary source blood by data Glucomete r Comprehensive metabolic 2000 panel in Serum or Plasma Observa Value Referen Units Interpr Notes Date ti ce etation Range Albumin/G 1.1 - 1.8 No Low No May 11 lobulin informati informati 2016 7:00 [Mass on in on in AM ratio] in source source Serum or data data Plasma Albumin 3.4 - 5.0 gm/dL Low No May 11 [Mass/vol informati 2016 7:00 ume] in on in AM Serum or source Plasma data Alkaline 46 - 116 U/L Normal No May 11 phosphata informati 2016 7:00 se on in AM [Enzymati source c data activity/ volume] in Serum or Plasma Bilirubin 0.2 - 1.0 mg/dL Normal No May 11 .total informati 2016 7:00 [Mass/vol on in AM ume] in source Serum or data Plasma Urea 7 - 18 mg/dL High No May 11 nitrogen informati 2017 7:00 [Mass/vol on in AM ume] in source Serum or data Plasma Calcium 8.5 - mg/dL Normal No May 11 [Mass/vol 10.1 informati 2016 7:00 ume] in on in AM Serum or source Plasma data Chloride 98 - 107 mmoL/L Normal No May 11 [Moles/vo informati 2016 7:00 lume] in on in AM Serum or source Plasma data Carbon 21.0 - mmoL/L Normal No May 11 dioxide, 32.0 informati 2016 7:00 total on in AM [Moles/vo source lume] in data Serum or Plasma Creatinin 0.55 - mg/dL No May 11 e 1.02 informati informati 2016 7:00 [Mass/vol on in on in AM ume] in source source Serum or data data Plasma Creatinin 50 - 200 ML/MIN No May 11 e renal informati informati 2016 7:00 clearance on in on in AM source source predicted data data by Cockcroft -Gault formula Estimated 59- ML/MIN Low REFERENCE May 11 RANGE: 2016 7:00 glomerula >60 AM r ML/MIN/1. filtratio 73 SQUARE n rate METERSIf (GF this patient is -A merican, then multiply theresult by 1.210. Globulin 1.3 - 3.2 gm/dL High No May 11 [Mass/vol informati 2016 7:00 ume] in on in AM Serum source data Glucose 74 - 106 mg/dL High No May 11 [Mass/vol informati 2016 7:00 ume] in on in AM Serum or source Plasma data Potassium 3.5 - 5.1 mmoL/L Normal No May 11 informati 2016 7:00 [Moles/vo on in AM lume] in source Serum or data Plasma Sodium 136 - 145 mmoL/L Normal No May 11 [Moles/vo informati 2016 7:00 lume] in on in AM Serum or source Plasma data Aspartate 15 - 37 U/L Normal No May 11 informati 2016 7:00 aminotran on in AM sferase source [Enzymati data c activity/ volume] in Serum or Plasma Alanine 12 - 78 U/L Normal No May 11 aminotran informati 2016 7:00 sferase on in AM [Enzymati source c data activity/ volume] in Serum or Plasma Protein 6.4 - 8.2 gm/dL Low No Nov 20 [Mass/vol informati 2016 7:00 ume] in on in AM Serum or source Plasma data CBC W Auto Differential panel in Blood Observa Value Referen Units Interpr Notes Date tion ce etation Range Basophils 0 - 0.2 K/MM3 Normal No May 11 informati 2016 7:00 [#/volume on in AM ] in source Blood by data Automated count Basophils 0.1 - 2.0 % Normal No May 11 /100 informati 2016 7:00 leukocyte on in AM s in source Blood by data Automated count Eosinophi 0.0 - 0.4 K/mm3 Normal No May 11 ls informati 2016 7:00 [#/volume on in AM ] in source Blood by data Automated count Eosinophi 0.1 - % Normal No May 11 ls/100 12.0 informati 2016 7:00 leukocyte on in AM s in source Blood by data Automated count Granulocy 1.8 - 7.8 K/mm3 Normal No May 11 jany informati 2016 7:00 [#/volume on in AM ] in source Blood by data Automated count Granulocy 37.0 - % Normal No May 11 jany/100 80.0 informati 2016 7:00 leukocyte on in AM s in source Blood by data Automated count Hematocri 37.0 - % Low No May 11 t [Volume 47.0 informati 2016 7:00 on in AM Fraction] source of Blood data Hemoglobi 12.2 - g/dL Low No May 11 n 16.2 informati 2016 7:00 [Mass/vol on in AM ume] in source Blood data Lymphocyt 0.7 - 4.5 K/mm3 Normal No May 11 es informati 2016 7:00 [#/volume on in AM ] in source Unspecifi data ed specimen by Automated count Lymphocyt 10 - 50.0 % Normal No May 11 es informati 2016 7:00 [#/volume on in AM ] in source Unspecifi data ed specimen by Automated count Erythrocy 27 - 31.2 pg Normal No May 11 te mean informati 2016 7:00 corpuscul on in AM ar source hemoglobi data n [Entitic mass] Erythrocy 31.8 - g/dl Normal No May 11 te mean 35.4 informati 2016 7:00 corpuscul on in AM ar source hemoglobi data n concentra tion [Mass/vol ume] by Automated count Erythrocy 82.2 - fl Normal No May 11 te mean 97.8 informati 2016 7:00 corpuscul on in AM ar volume source [Entitic data volume] by Automated count Monocytes 0.1 - 1.0 K/mm3 Normal No May 11 inform2016 7:00 [#/volume on in AM ] in source Blood by data Automated count Monocytes 1.7 - 9.3 % Normal No Apr 20 /100 informati 2016 7:00 leukocyte on in AM s in source Blood by data Automated count Platelet 7.4 - fl Normal No May 11 mean 10.4 informati 2016 7:00 volume on in AM [Entitic source volume] data in Blood by Automated count Platelets 142 - 424 K/mm3 No May 11 informati informati 2016 7:00 [#/volume on in on in AM ] in source source Blood data data Erythrocy 4.2 - 5.4 M/mm3 Low No May 11 jany informati 2016 7:00 [#/volume on in AM ] in source Amniotic data fluid Erythrocy 11.5 - % Normal No May 11 te 17.5 informati 2016 7:00 distribut on in AM ion width source [Entitic data volume] by Automated count Leukocyte 4.8 - K/MM3 Normal No May 11 s 10.8 informati 2016 7:00 [#/volume on in AM ] in source Blood data Gentamicin [Mass/volume] in Serum or Plasma Observa Value Referen Units Interpr Notes Date tion ce etation Range 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 TYPEWRITER TESTER: DO NOT NEED TO CALL PHARMACIST CYLINDER FILLER WITH LEVEL Gentamici 4.0 - ug/ml Low No May 10 n 10.0 2016 [Mass/vol on in 11:40 PM ume] in source Serum or data Plasma Glucose [Mass/volume] in Capillary blood by Glucometer Observa Value Referen Units Interpr Notes Date ti ce etation Range Glucose 70 - 110 mg/dl High No May 10 [Mass/vol informati 2016 ume] in on in 10:00 PM Capillary source blood by data Glucomete r Glucose [Mass/volume] in Capillary blood by Glucometer Observa Value Referen Units Interpr Notes Date ti ce etation Range Glucose 70 - 110 mg/dl High No May 10 [Mass/vol informati 2016 4:41 ume] in on in PM Capillary source blood by data Glucomete r Gentamicin [Mass/volume] in Serum or Plasma Observa Value Referen Units Interpr Notes Date tion ce etation Range 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 TYPEWRITER TESTER: DO NOT NEED TO CALL PHARMACIST CYLINDER FILLER WITH LEVEL Gentamici 4.0 - ug/ml Normal No May 10 n 10.0 informati 2017 4:20 [Mass/vol on in PM ume] in source Serum or data Plasma Glucose [Mass/volume] in Capillary blood by Glucometer Observa Value Referen Units Interpr Notes Date ti ce etation Range Glucose 70 - 110 mg/dl High No May 10 [Mass/vol informati 2016 ume] in on in 11:29 AM Capillary source blood by data Glucomete r Glucose [Mass/volume] in Capillary blood by Glucometer Observa Value Referen Units Interpr Notes Date ti ce etation Range Glucose 70 - 110 mg/dl High No May 10 [Mass/vol informati 2016 6:19 ume] in on in AM Capillary source blood by data Glucomete r Glucose [Mass/volume] in Capillary blood by Glucometer Observa Value Referen Units Interpr Notes Date etation Range Glucose 70 - 110 mg/dl High No May 09 [Mass/vol informati 2016 8:15 ume] in on in PM Capillary source blood by data Glucomete r Glucose [Mass/volume] in Capillary blood by Glucometer Observa Value Referen Units Interpr Notes Date ti etation Range Glucose 70 - 110 mg/dl High No May 09 [Mass/vol informati 2017 4:41 ume] in on in PM Capillary source blood by data Glucomete r Glucose [Mass/volume] in Capillary blood by Glucometer Observa Value Referen Units Interpr Notes Date ti ce etation Range Glucose 70 - 110 mg/dl High No May 09 [Mass/vol informati 2016 ume] in on in 11:23 AM Capillary source blood by data Glucomete r Glucose [Mass/volume] in Capillary blood by Glucometer Observa Value Referen Units Interpr Notes Date ti ce etation Range Glucose 70 - 110 mg/dl High No May 09 [Mass/vol informati 2016 6:06 ume] in on in AM Capillary source blood by data Glucomete r Glucose [Mass/volume] in Capillary blood by Glucometer Observa Value Referen Units Interpr Notes Date ti ce etation Range Glucose 70 - 110 mg/dl High No Apr 17 [Mass/vol informati 2017 ume] in on in 10:04 PM Capillary source blood by data Glucomete r Urinalysis dipstick W Reflex Microscopic panel in Urine Observa Value Referen Units Interpr Notes Date tion ce etation Range Collected by nurse? Y Hold specimen in OE? N Appeara CLEAR CLEAR No No No May 08 nce of informa informa informa 2017 Urine tion in tion in tion in 6:12 PM source source source data data data Bacteri 2+ O No No No May 08 a informa informa informa 2016 [Presen tion in tion in tion in 6:12 PM ce] in source source source Urine data data data sedimen t by Light microsc opy Bilirub 1+ NEG No Abnorma ICTOTES May 08 in informa l T = 2017 [Presen tion in NEGATIV 6:12 PM ce] in source E Urine data by Test strip Erythro 3+ NEG No Abnorma No May 08 cytes informa l informa 2016 [Presen tion in tion in 6:12 PM ce] in source source Urine data data Color YELLOW YELLOW No No No May 08 of informa informa informa 2016 Urine tion in tion in tion in 6:12 PM source source source data data data Glucose NEG No High No May 08 [Mass/vol informati informati 2017 6:12 ume] in on in on in PM Urine by source source Test data data strip Hyaline OCC NONE #/lpf No No May 08 casts informa informa 2016 [Presen tion in tion in 6:12 PM ce] in source source Urine data data sedimen t by Light microsc opy Ketones 2+ NEG mg/dL Abnorma No May 08 l informa 2016 [Presen tion in 6:12 PM ce] in source Urine data by Automat ed test strip Mucus NEGATIV NEG No No No May 08 [Presen E informa informa informa 2016 ce] in tion in tion in tion in 6:12 PM Urine source source source sedimen data data data t by Light microsc opy Nitrite NEGATIV NEG No No No May 08 E informa informa informa 2016 [Presen tion in tion in tion in 6:12 PM ce] in source source source Urine data data data by Test strip pH of 5.0 - 8.5 No Normal No May 08 Urine informati informati 2017 6:12 on in on in PM source source data data Protein NEG mg/dL High No May 08 [Mass/vol informati 2017 6:12 ume] in on in PM Urine by source Automated data test strip Erythro 20-50 0 rbc/hpf No No May 08 cytes informa informa 2016 [Presen tion in tion in 6:12 PM ce] in source source Urine data data sedimen t by Light microsc opy Specific 1.005 - No Normal No May 08 gravity 1.030 informati informati 2017 6:12 of Urine on in on in PM source source data data Epithel 3-5 0 - 5 #/hpf No No May 08 ial informa informa 2017 cells.s tion in tion in 6:12 PM quamous source source data data [Presen ce] in Urine sedimen t by Microsc opy high power field Urobili 0.2 NEG E.U./dL No No May 08 nogen informa informa 2016 [Presen tion in tion in 6:12 PM ce] in source source Urine data data by Test strip Leukocyte O wbc/hpf No No May 08 s informati informati 2017 6:12 [#/volume on in on in PM ] in source source Urine data data Urinalysis dipstick W Reflex Microscopic panel in Urine Observa Value Referen Units Interpr Notes Date tion ce etation Range Collected by nurse? Y Hold specimen in OE? N Appeara CLEAR CLEAR No No No May 08 nce of informa informa informa 2016 Urine tion in tion in tion in 6:12 PM source source source data data data Bilirub 1+ NEG No Abnorma ICTOTES May 08 in informa l T = 2017 [Presen tion in NEGATIV 6:12 PM ce] in source E Urine data by Test strip Erythro 3+ NEG No Abnorma No May 08 cytes informa l informa 2016 [Presen tion in tion in 6:12 PM ce] in source source Urine data data Color YELLOW YELLOW No No No May 08 of informa informa informa 2017 Urine tion in tion in tion in 6:12 PM source source source data data data Glucose NEG No High No May 08 [Mass/vol informati informati 2016 6:12 ume] in on in on in PM Urine by source source Test data data strip Ketones 2+ NEG mg/dL Abnorma No May 08 l inform2016 [Presen tion in 6:12 PM ce] in source Urine data by Automat ed test strip Mucus NEGATIV NEG No No No May 08 [Presen E informa informa informa 2016 ce] in tion in tion in tion in 6:12 PM Urine source source source sedimen data data data t by Light microsc opy Nitrite NEGATIV NEG No No No May 08 E informa informa informa 2016 [Presen tion in tion in tion in 6:12 PM ce] in source source source Urine data data data by Test strip pH of 5.0 - 8.5 No Normal No May 08 Urine informati informati 2016 6:12 on in on in PM source source data data Protein NEG mg/dL High No May 08 [Mass/vol informati 2016 6:12 ume] in on in PM Urine by source Automated data test strip Specific 1.005 - No Normal No May 08 gravity 1.030 informati informati 2016 6:12 of Urine on in on in PM source source data data Urobili 0.2 NEG E.U./dL No No May 08 nogen informa informa 2016 [Presen tion in tion in 6:12 PM ce] in source source Urine data data by Test strip Glucose [Mass/volume] in Capillary blood by Glucometer Observa Value Referen Units Interpr Notes Date ce etation Range Glucose 70 - 110 mg/dl High No May 08 [Mass/vol informati 2016 5:12 ume] in on in PM Capillary source blood by data Glucomete r Glucose [Mass/volume] in Capillary blood by Glucometer Observa Value Referen Units Interpr Notes Date ti ce etation Range Glucose 70 - 110 mg/dl High No May 08 [Mass/vol informati 2016 ume] in on in 11:45 AM Capillary source blood by data Glucomete r Basic metabolic panel in Blood Observa Value Referen Units Interpr Notes Date ce etation Range Urea 7 - 18 mg/dL Normal No May 08 nitrogen informati 2017 8:20 [Mass/vol on in AM ume] in source Serum or data Plasma Calcium 8.5 - mg/dL Low No May 08 [Mass/vol 10.1 informati 2016 8:20 ume] in on in AM Serum or source Plasma data Chloride 98 - 107 mmoL/L Normal No May 08 [Moles/vo informati 2016 8:20 lume] in on in AM Serum or source Plasma data Carbon 21.0 - mmoL/L Normal No May 08 dioxide, 32.0 informati 2016 8:20 total on in AM [Moles/vo source lume] in data Serum or Plasma Creatinin 0.55 - mg/dL Normal No May 08 e 1.02 informati 2016 8:20 [Mass/vol on in AM ume] in source Serum or data Plasma Creatinin 50 - 200 ML/MIN Normal No May 08 e renal informati 2016 8:20 clearance on in AM source predicted data by Cockcroft -Gault formula Estimated 59- ML/MIN No REFERENCE May 08 informati RANGE: 2017 8:20 glomerula on in >60 AM r source ML/MIN/1. filtratio data 73 SQUARE n rate METERSIf (GF this patient is -A merican, then multiply theresult by 1.210. Glucose 74 - 106 mg/dL High No May 08 [Mass/vol informati 2016 8:20 ume] in on in AM Serum or source Plasma data Potassium 3.5 - 5.1 mmoL/L Low No May 08 informati 2016 8:20 [Moles/vo on in AM lume] in source Serum or data Plasma Sodium 136 - 145 mmoL/L Low May 08 [Moles/vo informati 2016 8:20 lume] in on in AM Serum or source Plasma data CBC W Auto Differential panel in Blood Observa Value Referen Units Interpr Notes Date tion ce etation Range Basophils 0 - 0.2 K/MM3 Normal No May 08 informati 2016 8:20 [#/volume on in AM ] in source Blood by data Automated count Basophils 0.1 - 2.0 % Normal No May 08 / informati 2016 8:20 leukocyte on in AM s in source Blood by data Automated count Eosinophi 0.0 - 0.4 K/mm3 Normal No May 08 ls informati 2016 8:20 [#/volume on in AM ] in source Blood by data Automated count Eosinophi 0.1 - % Normal No May 08 ls/100 12.0 informati 2016 8:20 leukocyte on in AM s in source Blood by data Automated count Granulocy 1.8 - 7.8 K/mm3 Normal No May 08 jany informati 2016 8:20 [#/volume on in AM ] in source Blood by data Automated count Granulocy 37.0 - % Normal No May 08 jany/100 80.0 informati 2016 8:20 leukocyte on in AM s in source Blood by data Automated count Hematocri 37.0 - % Low No May 08 t [Volume 47.0 informati 2016 8:20 on in AM Fraction] source of Blood data Hemoglobi 12.2 - g/dL Low No May 08 n 16.2 informati 2016 8:20 [Mass/vol on in AM ume] in source Blood data Lymphocyt 0.7 - 4.5 K/mm3 Normal No May 08 es informati 2016 8:20 [#/volume on in AM ] in source Unspecifi data ed specimen by Automated count Lymphocyt 10 - 50.0 % Normal No May 08 informati 2016 8:20 [#/volume on in AM ] in source Unspecifi data ed specimen by Automated count Erythrocy 27 - 31.2 pg Normal No May 08 te mean informati 2016 8:20 corpuscul on in AM ar source hemoglobi data n [Entitic mass] Erythrocy 31.8 - g/dl Normal No May 08 te mean 35.4 informati 2016 8:20 corpuscul on in AM ar source hemoglobi data n concentra tion [Mass/vol ume] by Automated count Erythrocy 82.2 - fl Normal May 08 te mean 97.8 informati 2016 8:20 corpuscul on in AM ar volume source [Entitic data volume] by Automated count Monocytes 0.1 - 1.0 K/mm3 Normal No May 08 informati 2016 8:20 [#/volume on in AM ] in source Blood by data Automated count Monocytes 1.7 - 9.3 % Normal No May 08 / informati 2016 8:20 leukocyte on in AM s in source Blood by data Automated count Platelet 7.4 - fl Normal No May 08 mean 10.4 informati 2016 8:20 volume on in AM [Entitic source volume] data in Blood by Automated count Platelets 142 - 424 K/mm3 Low No May 08 informati 2016 8:20 [#/volume on in AM ] in source Blood data Erythrocy 4.2 - 5.4 M/mm3 Low No May 08 jany informati 2016 8:20 [#/volume on in AM ] in source Amniotic data fluid Erythrocy 11.5 - % Normal No May 08 te 17.5 informati 2016 8:20 distribut on in AM ion width source [Entitic data volume] by Automated count Leukocyte 4.8 - K/MM3 Normal No May 08 s 10.8 informati 2016 8:20 [#/volume on in AM ] in source Blood data Glucose [Mass/volume] in Capillary blood by Glucometer Observa Value Referen Units Interpr Notes Date tion ce etation Range Glucose 70 - 110 mg/dl High No May 08 [Mass/vol informati 2016 6:03 ume] in on in AM Capillary source blood by data Glucomete r Glucose [Mass/volume] in Capillary blood by Glucometer Observa Value Referen Units Interpr Notes Date tion ce etation Range Glucose 70 - 110 mg/dl High No May 07 [Mass/vol informati 2016 8:19 ume] in on in PM Capillary source blood by data Glucomete r Glucose [Mass/volume] in Capillary blood by Glucometer Observa Value Referen Units Interpr Notes Date tion ce etation Range Glucose 70 - 110 mg/dl High No May 07 [Mass/vol informati 2016 6:24 ume] in on in PM Capillary source blood by data Glucomete r Glucose [Mass/volume] in Capillary blood by Glucometer Observa Value Referen Units Interpr Notes Date tion ce etation Range Glucose 70 - 110 mg/dl High No May 07 [Mass/vol alert informati 2016 ume] in on in 11:42 AM Capillary source blood by data Glucomete r CBC W Auto Differential panel in Blood Observa Value Referen Units Interpr Notes Date tion ce etation Range Basophils 0 - 0.2 K/MM3 Normal No May 07 informati 2016 6:15 [#/volume on in AM ] in source Blood by data Automated count Basophils 0.1 - 2.0 % Normal No May 07 / informati 2016 6:15 leukocyte on in AM s in source Blood by data Automated count Eosinophi 0.0 - 0.4 K/mm3 Normal No May 07 ls ati 2016 6:15 [#/volume on in AM ] in source Blood by data Automated count Eosinophi 0.1 - % Normal No May 07 ls/100 12.0 informati 2016 6:15 leukocyte on in AM s in source Blood by data Automated count Granulocy 1.8 - 7.8 K/mm3 Normal No Apr 16 jany informati 2016 6:15 [#/volume on in AM ] in source Blood by data Automated count Granulocy 37.0 - % High No May 07 jany/100 80.0 informati 2016 6:15 leukocyte on in AM s in source Blood by data Automated count Hematocri 37.0 - % Low No May 07 t [Volume 47.0 informati 2016 6:15 on in AM Fraction] source of Blood data Hemoglobi 12.2 - g/dL Low No May 07 n 16.2 informati 2016 6:15 [Mass/vol on in AM ume] in source Blood data Lymphocyt 0.7 - 4.5 K/mm3 Normal No May 07 es informati 2016 6:15 [#/volume on in AM ] in source Unspecifi data ed specimen by Automated count Lymphocyt 10 - 50.0 % Normal No May 07 es informati 2016 6:15 [#/volume on in AM ] in source Unspecifi data ed specimen by Automated count Erythrocy 27 - 31.2 pg Normal No May 07 te mean informati 2016 6:15 corpuscul on in AM ar source hemoglobi data n [Entitic mass] Erythrocy 31.8 - g/dl Normal No May 07 te mean 35.4 informati 2016 6:15 corpuscul on in AM ar source hemoglobi data n concentra tion [Mass/vol ume] by Automated count Erythrocy 82.2 - fl Normal No May 07 te mean 97.8 informati 2016 6:15 corpuscul on in AM ar volume source [Entitic data volume] by Automated count Monocytes 0.1 - 1.0 K/mm3 Normal No May 07 informati 2016 6:15 [#/volume on in AM ] in source Blood by data Automated count Monocytes 1.7 - 9.3 % Normal No May 07 / informati 2017 6:15 leukocyte on in AM s in source Blood by data Automated count Platelet 7.4 - fl Normal No May 07 mean 10.4 informati 2016 6:15 volume on in AM [Entitic source volume] data in Blood by Automated count Platelets 142 - 424 K/mm3 Normal No May 07 informati 2016 6:15 [#/volume on in AM ] in source Blood data Erythrocy 4.2 - 5.4 M/mm3 Low No May 07 jany informati 2016 6:15 [#/volume on in AM ] in source Amniotic data fluid Erythrocy 11.5 - % Normal No May 07 te 17.5 informati 2016 6:15 distribut on in AM ion width source [Entitic data volume] by Automated count Leukocyte 4.8 - K/MM3 No No May 07 s 10.8 informati informati 2017 6:15 [#/volume on in on in AM ] in source source Blood data data Basic metabolic panel in Blood Observa Value Referen Units Interpr Notes Date tion ce etation Range Urea 7 - 18 mg/dL Normal No May 07 nitrogen informati 2016 6:15 [Mass/vol on in AM ume] in source Serum or data Plasma Calcium 8.5 - mg/dL Normal No May 07 [Mass/vol 10.1 informati 2016 6:15 ume] in on in AM Serum or source Plasma data Chloride 98 - 107 mmoL/L Normal No May 07 [Moles/vo informati 2016 6:15 lume] in on in AM Serum or source Plasma data Carbon 21.0 - mmoL/L Normal No May 07 dioxide, 32.0 informati 2016 6:15 total on in AM [Moles/vo source lume] in data Serum or Plasma Creatinin 0.55 - mg/dL Normal No May 07 e 1.02 informati 2016 6:15 [Mass/vol on in AM ume] in source Serum or data Plasma Creatinin 50 - 200 ML/MIN Normal No May 07 e renal informati 2016 6:15 clearance on in AM source predicted data by Cockcroft -Gault formula Estimated 59- ML/MIN No REFERENCE May 07 informati RANGE: 2017 6:15 glomerula on in >60 AM r source ML/MIN/1. filtratio data 73 SQUARE n rate METERSIf (GF this patient is -A merican, then multiply theresult by 1.210. Glucose 74 - 106 mg/dL High No May 07 [Mass/vol informati 2016 6:15 ume] in on in AM Serum or source Plasma data Potassium 3.5 - 5.1 mmoL/L Low No Nov 16 informati 2017 6:15 [Moles/vo on in AM lume] in source Serum or data Plasma Sodium 136 - 145 mmoL/L Low No Apr 16 [Moles/vo informati 2017 6:15 lume] in on in AM Serum or source Plasma data Glucose [Mass/volume] in Capillary blood by Glucometer Observa Value Referen Units Interpr Notes Date ce etation Range Glucose 70 - 110 mg/dl High No Apr 16 [Mass/vol informati 2016 6:14 ume] in on in AM Capillary source blood by data Glucomete r Glucose [Mass/volume] in Capillary blood by Glucometer Observa Value Referen Units Interpr Notes ce etation Range Glucose 70 - 110 mg/dl High No May 06 [Mass/vol alert informati 2016 9:06 ume] in on in PM Capillary source blood by data Glucomete r Blood type & Indirect antibody screen panel in Blood Observa Value Referen Units Interpr Notes ce etation Range Blood POSITIV NEGATIV No Abnorma No May 06 group E E informa l informa 2017 antibod tion in in 10:00 y source source AM screen data data [Presen ce] in Serum or Plasma Rh POSITIV No No No No May 06 [Type] E informa informa informa informa 2017 in tion in tion in in in 10:00 Blood source source source source AM data data data data ABO A No No No No May 06 group informa informa informa informa 2016 [Type] tion in in in in 10:00 in source source source source AM Blood data data data data Glucose [Mass/volume] in Capillary blood by Glucometer Observa Value Referen Units Interpr Notes Date ce etation Range Glucose 70 - 110 mg/dl High No May 06 [Mass/vol informati 2016 6:35 ume] in on in AM Capillary source blood by data Glucomete r Glucose [Mass/volume] in Capillary blood by Glucometer Observa Value Referen Units Interpr Notes Date ti ce etation Range Glucose 70 - 110 mg/dl High No May 05 [Mass/vol informati 2016 7:36 ume] in on in PM Capillary source blood by data Glucomete r Urinalysis dipstick W Reflex Microscopic panel in Urine Observa Value Referen Units Interpr Notes Date tion ce etation Range Appeara SL CLEAR No No No Apr 14 nce of CLOUDY informa informa informa 2016 Urine tion in tion in tion in 1:50 PM source source source data data data Bacteri 4+ O No No No May 05 a informa informa informa 2016 [Presen tion in tion in tion in 1:50 PM ce] in source source source Urine data data data sedimen t by Light microsc opy Bilirub NEGATIV NEG No No No May 05 in E informa informa informa 2016 [Presen tion in tion in tion in 1:50 PM ce] in source source source Urine data data data by Test strip Erythro NEGATIV NEG No No No May 05 cytes E informa informa informa 2016 [Presen tion in tion in tion in 1:50 PM ce] in source source source Urine data data data Color YELLOW YELLOW No No No May 05 of informa informa informa 2016 Urine tion in tion in tion in 1:50 PM source source source data data data Glucose NEG No No No Apr 14 [Mass/vol informati informati informati 2016 1:50 ume] in on in on in on in PM Urine by source source source Test data data data strip Ketones NEGATIV NEG mg/dL No No May 05 E informa informa 2016 [Presen tion in tion in 1:50 PM ce] in source source Urine data data by Automat ed test strip Mucus NEGATIV NEG No No No May 05 [Presen E informa informa informa 2016 ce] in tion in tion in tion in 1:50 PM Urine source source source sedimen data data data t by Light microsc opy Nitrite NEGATIV NEG No No No May 05 E informa informa informa 2016 [Presen tion in tion in tion in 1:50 PM ce] in source source source Urine data data data by Test strip pH of 5.0 - 8.5 No Normal No Apr 14 Urine informati informati 2017 1:50 on in on in PM source source data data Protein NEG mg/dL No No Apr 14 [Mass/vol informati informati 2016 1:50 ume] in on in on in PM Urine by source source Automated data data test strip Erythro NONE 0 rbc/hpf No No May 05 cytes informa informa 2016 [Presen tion in tion in 1:50 PM ce] in source source Urine data data sedimen t by Light microsc opy Specific 1.005 - No Normal No May 05 gravity 1.030 informati informati 2016 1:50 of Urine on in on in PM source source data data Epithel NONE 0 - 5 #/hpf No No May 05 ial informa informa 2017 cells.s tion in tion in 1:50 PM quamous source source data data [Presen ce] in Urine sedimen t by Microsc opy high power field Urobili 0.2 NEG E.U./dL No No May 05 nogen informa informa 2016 [Presen tion in tion in 1:50 PM ce] in source source Urine data data by Test strip Leukocyte O wbc/hpf No No May 05 s informati informati 2016 1:50 [#/volume on in on in PM ] in source source Urine data data Urinalysis dipstick W Reflex Microscopic panel in Urine Observa Value Referen Units Interpr Notes Date tion ce etation Range Appeara SL CLEAR No No No May 05 nce of CLOUDY informa informa informa 2017 Urine tion in tion in tion in 1:50 PM source source source data data data Bilirub NEGATIV NEG No No No May 05 in E informa informa informa 2016 [Presen tion in tion in tion in 1:50 PM ce] in source source source Urine data data data by Test strip Erythro NEGATIV NEG No No No May 05 cytes E informa informa informa 2016 [Presen tion in tion in tion in 1:50 PM ce] in source source source Urine data data data Color YELLOW YELLOW No No No May 05 of informa informa informa 2017 Urine tion in tion in tion in 1:50 PM source source source data data data Glucose NEG No No No May 05 [Mass/vol informati informati informati 2016 1:50 ume] in on in on in on in PM Urine by source source source Test data data data strip Ketones NEGATIV NEG mg/dL No No May 05 E informa informa 2016 [Presen tion in tion in 1:50 PM ce] in source source Urine data data by Automat ed test strip Mucus NEGATIV NEG No No No May 05 [Presen E informa informa informa 2016 ce] in tion in tion in tion in 1:50 PM Urine source source source sedimen data data data t by Light microsc opy Nitrite NEGATIV NEG No No No May 05 E informa informa informa 2016 [Presen tion in tion in tion in 1:50 PM ce] in source source source Urine data data data by Test strip pH of 5.0 - 8.5 No Normal No May 05 Urine informati informati 2016 1:50 on in on in PM source source data data Protein NEG mg/dL No No May 05 [Mass/vol informati informati 2016 1:50 ume] in on in on in PM Urine by source source Automated data data test strip Specific 1.005 - No Normal No May 05 gravity 1.030 informati informati 2016 1:50 of Urine on in on in PM source source data data Urobili 0.2 NEG E.U./dL No No May 05 nogen informa informa 2016 [Presen tion in tion in 1:50 PM ce] in source source Urine data data by Test strip Magnesium [Moles/volume] in Unspecified specimen Observa Value Referen Units Interpr Notes Date tion ce etation Range Magnesium 1.7 - 2.8 mg/dL Normal No May 052016 [Moles/vo on in 12:50 PM lume] in source Unspecifi data ed specimen Comprehensive metabolic 2000 panel in Serum or Plasma Observa Value Referen Units Interpr Notes Date tion ce etation Range Albumin/G 1.1 - 1.8 No Low No May 05 lobulin informati informati 2016 [Mass on in on in 12:50 PM ratio] in source source Serum or data data Plasma Albumin 3.4 - 5.0 gm/dL Normal No May 05 [Mass/vol informati 2016 ume] in on in 12:50 PM Serum or source Plasma data Alkaline 46 - 116 U/L Normal No May 05 phosphata informati 2016 se on in 12:50 PM [Enzymati source c data activity/ volume] in Serum or Plasma Bilirubin 0.2 - 1.0 mg/dL Normal No May 05 .total informati 2016 [Mass/vol on in 12:50 PM ume] in source Serum or data Plasma Urea 7 - 18 mg/dL Normal No Apr 14 nitrogen inform2016 [Mass/vol on in 12:50 PM ume] in source Serum or data Plasma Calcium 8.5 - mg/dL Normal No May 05 [Mass/vol 10.1 informati 2016 ume] in on in 12:50 PM Serum or source Plasma data Chloride 98 - 107 mmoL/L Normal No May 05 [Moles/vo informati 2016 lume] in on in 12:50 PM Serum or source Plasma data Carbon 21.0 - mmoL/L Normal No May 05 dioxide, 32.0 informati 2016 total on in 12:50 PM [Moles/vo source lume] in data Serum or Plasma Creatinin 0.55 - mg/dL Normal No May 05 e 1.02 informati 2016 [Mass/vol on in 12:50 PM ume] in source Serum or data Plasma Creatinin 50 - 200 ML/MIN Normal No May 05 e renal inform2016 clearance on in 12:50 PM source predicted data by Cockcroft -Gault formula Estimated 59- ML/MIN No REFERENCE May 05 informati RANGE: 2017 glomerula on in >60 12:50 PM r source ML/MIN/1. filtratio data 73 SQUARE n rate METERSIf (GF this patient is -A merican, then multiply theresult by 1.210. Globulin 1.3 - 3.2 gm/dL High No May 05 [Mass/vol informati 2016 ume] in on in 12:50 PM Serum source data Glucose 74 - 106 mg/dL High No May 05 [Mass/vol informati 2016 ume] in on in 12:50 PM Serum or source Plasma data Potassium 3.5 - 5.1 mmoL/L Low No May 052016 [Moles/vo on in 12:50 PM lume] in source Serum or data Plasma Sodium 136 - 145 mmoL/L Normal No May 05 [Moles/vo informati 2016 lume] in on in 12:50 PM Serum or source Plasma data Aspartate 15 - 37 U/L Normal No May 052016 aminotran on in 12:50 PM sferase source [Enzymati data c activity/ volume] in Serum or Plasma Alanine 12 - 78 U/L Normal No May 05 aminotran 2016 sferase on in 12:50 PM [Enzymati source c data activity/ volume] in Serum or Plasma Protein 6.4 - 8.2 gm/dL Normal No Apr 14 [Mass/vol 2016 ume] in on in 12:50 PM Serum or source Plasma data CBC W Auto Differential panel in Blood Observa Value Referen Units Interpr Notes Date tion ce etation Range Basophils 0 - 0.2 K/MM3 Normal No May 052016 [#/volume on in 12:50 PM ] in source Blood by data Automated count Basophils 0.1 - 2.0 % Normal No Apr 14 /100 2016 leukocyte on in 12:50 PM s in source Blood by data Automated count Eosinophi 0.0 - 0.4 K/mm3 Normal No Apr 14 ls 2016 [#/volume on in 12:50 PM ] in source Blood by data Automated count Eosinophi 0.1 - % Normal No Apr 14 ls/100 12.0 2016 leukocyte on in 12:50 PM s in source Blood by data Automated count Granulocy 1.8 - 7.8 K/mm3 Normal No Apr 14 jany 2016 [#/volume on in 12:50 PM ] in source Blood by data Automated count Granulocy 37.0 - % Normal No Apr 14 jany/100 80.0 2016 leukocyte on in 12:50 PM s in source Blood by data Automated count Hematocri 37.0 - % Low No May 05 t [Volume 47.0 2016 on in 12:50 PM Fraction] source of Blood data Hemoglobi 12.2 - g/dL Normal No May 05 n 16.2 2016 [Mass/vol on in 12:50 PM ume] in source Blood data Lymphocyt 0.7 - 4.5 K/mm3 Normal No May 05 es 2016 [#/volume on in 12:50 PM ] in source Unspecifi data ed specimen by Automated count Lymphocyt 10 - 50.0 % Normal No May 05 es 2016 [#/volume on in 12:50 PM ] in source Unspecifi data ed specimen by Automated count Erythrocy 27 - 31.2 pg Normal No May 05 te mean 2016 corpuscul on in 12:50 PM ar source hemoglobi data n [Entitic mass] Erythrocy 31.8 - g/dl Normal No May 05 te mean 35.4 2016 corpuscul on in 12:50 PM ar source hemoglobi data n concentra tion [Mass/vol ume] by Automated count Erythrocy 82.2 - fl Normal No May 05 te mean 97.8 2016 corpuscul on in 12:50 PM ar volume source [Entitic data volume] by Automated count Monocytes 0.1 - 1.0 K/mm3 Normal No May 052016 [#/volume on in 12:50 PM ] in source Blood by data Automated count Monocytes 1.7 - 9.3 % Normal No May 05 /100 2016 leukocyte on in 12:50 PM s in source Blood by data Automated count Platelet 7.4 - fl Normal No May 05 mean 10.4 2016 volume on in 12:50 PM [Entitic source volume] data in Blood by Automated count Platelets 142 - 424 K/mm3 No May 05ati 2016 [#/volume on in on in 12:50 PM ] in source source Blood data data Erythrocy 4.2 - 5.4 M/mm3 Low No May 05 jany 2016 [#/volume on in 12:50 PM ] in source Amniotic data fluid Erythrocy 11.5 - % Normal No May 05 te 17.5 2016 distribut on in 12:50 PM ion width source [Entitic data volume] by Automated count Leukocyte 4.8 - K/MM3 Normal No May 05 s 10.8 2016 [#/volume on in 12:50 PM ] in source Blood data
--- OUTSIDE RECORDS SUMMARY | 2017-05-12 14:23 | External Medical Summary Rpt ---
[...] Date tion ce etation Range COMMENTS TO VP PACKAGING: DO NOT NEED TO CALL PHARMACIST TECHNICAL AIDE WITH LEVEL Gentamici 4.0 - ug/ml Low [...] Date tion ce etation Range COMMENTS TO VP PACKAGING: DO NOT NEED TO CALL PHARMACIST TECHNICAL AIDE WITH LEVEL Gentamici 4.0 - ug/ml Normal [...]
[2017-05-12 14:27] LABS: LYMPH # 1.2 K/mm3 (0.7-4.5); LYMPH % 10.1 % (10-50.0)
[2017-05-12 14:28] LABS: URINE BILIRUBIN - DIPSTICK NEGATIVE (NEG)
[2017-05-12 14:33] LABS: HEMOGLOBIN 11.3 g/dL (12.2-16.2)
[2017-05-12 14:49] LABS: BUN 35 mg/dL (7-18)
[2017-05-12 14:52] LABS: GFR (ESTIMATED) 40 ML/MIN (59-)
--- NOTE | 2017-05-12 16:06 | RADIOLOGY REPORT PS360 ---
CT HEAD W/O CONTRAST HISTORY: Altered mental status, altered level of consciousness, confusion ALTERED MENTAL STATUS ORDERING PHYSICIAN: Johanne Stone MD PATIENT AGE: 77 years COMPARISON: None TECHNIQUE: Axial images obtained without and with contrast. Brain and bone windows reviewed. FINDINGS: No midline shift, mass effect, intracranial hemorrhage, hydrocephalus, or extra-axial fluid collection is evident. There is generalized atrophy with periventricular ischemic gliotic change. No intra or extra-axial mass or hemorrhage. No enhancing lesions are evident. The calvarium has an unremarkable appearance. No mastoid effusion. The visualized paranasal sinuses are unremarkable. IMPRESSION: 1. No acute intracranial findings. 2. Atrophy with chronic ischemic gliotic change.
--- NOTE | 2017-05-12 16:19 | RADIOLOGY REPORT PS360 ---
CTA-CHEST HISTORY: Hypoxia, recent hip surgery AMS, HYPOXIA, RECENT HIP SX, R/O PE ORDERING PHYSICIAN: Johanne Stone MD PATIENT AGE: 77 years TECHNIQUE: Helical acquisition obtained following the bolus administration of 60 mL of Isovue 370 followed by a saline bolus. Axial, sagittal, and coronal reformatted images are generated and reviewed. COMPARISON: None FINDINGS: There is no evidence of pulmonary embolus. No aortic aneurysm repair. There is mild cardiomegaly. No obvious pericardial effusion. There are low lung volumes. There is severe gastric distention. The esophagus is also distended and fluid-filled with an air-fluid level in the upper thoracic esophagus. There are low lung volumes with extensive bilateral lower lobe atelectasis/volume loss small bilateral pleural effusions. There are atelectatic changes are more severe on the left. There is a rounded 9 mm area of groundglass opacity in the right upper lobe posteriorly nonspecific Degenerative changes are present in the thoracic spine. Moderate thoracic scoliosis convex right with kyphosis. IMPRESSION: 1. No evidence of pulmonary interval. 2. Low lung volumes with elevated hemidiaphragm on both sides and extensive bilateral lower lobe atelectatic changes left more so than right with small bilateral effusions. 3. Severe gastric and esophageal distention with fluid-filled stomach and fluid-filled soft
--- NOTE | 2017-05-12 16:25 | RADIOLOGY REPORT PS360 ---
CT ABD PELVIS W/O CONTRAST CLINICAL INDICATION: ABD PAIN ORDERING PHYSICIAN: Johanne Stone MD PATIENT AGE: 77 years COMPARISON: None TECHNIQUE: Axial images obtained with sagittal and coronal reformats. PROCEDURE: Oral Contrast: None IV Contrast: 75 mL's of Isovue-370 performed in conjunction with chest CT. FINDINGS: There is severe distention of the stomach with a fluid-filled stomach. Distended fluid-filled esophagus is also noted. There does appear to be some mild thickening of the mucosa at the pylorus. This is of questionable clinical significance. There are fluid-filled loops of small and large bowel distal to this area consistent with ileus. There are a few scattered air-fluid levels in the small bowel no obvious transition point. Gas is present in the terminal ileum. No free air. No abscess. There is a large cystic lesion involving the anterior aspect of the spleen measuring 9.4 cm x 9.8 cm with some peripheral coarse calcification. There are small cortical renal cyst. No hydronephrosis. There is extensive pneumobilia in this patient that has had a prior cholecystectomy. No obvious pancreatic mass or adrenal mass. There is nonspecific hypodensity involving the inferior mesenteric fat. IMPRESSION: 1. Distended stomach and duodenum. There is some mucosal thickening in the region of the pylorus. Fluid-filled loops of small and large bowel are present consistent with ileus 2. 9.8 cm splenic cystic lesion. There is some increase in the peripheral calcification compared to the previous study. 3. Status post cholecystectomy with pneumobilia
--- OUTSIDE RECORDS SUMMARY | 2017-05-12 17:10 | External Medical Summary Rpt | CCD ---
Author Author , GAIL REYNOLDS Address Unknown Phone [email or web address] Purpose Continuity of Care Document - 05-05-2017 through 2016 Problems Code Diagnosis DOS Provider Status E11.40 TYPE 2 DIABETES MELLITUS WITH DIABETIC NEUROPATHY, UNSP S72.002A FRACTURE OF UNSP PART OF NECK OF LEFT FEMUR, INIT S72.009A FRACTURE OF UNSP PART OF NECK OF UNSP FEMUR, INIT Results Labs Lab Lab Date Result Refere Interp Status Commen Order Detail nces retati t Range on Blood lactic acid measurement (moles/vol (05-12-2017 14:40) Blood = 2.0 0.4-2.0 complet lactic 017 mmol/L ed acid 14:40 measure ment (moles/ vol CBC w auto diff (05-12-2017 14:12) Automat = 0.1 0-0.2 complet ed 017 K/MM3 ed blood 14:12 basophi l count (count/ vo Baso % = 0.6 % 0.1-2.0 complet 017 ed 14:12 Automat = 0.0 0.0-0.4 complet ed 017 K/mm3 ed blood 14:12 eosinop hil count Automat = 0.2 % 0.1-12. complet ed 017 0 ed blood 14:12 eosinop hils/10 0 leukocy t Blood = 9.8 1.8-7.8 complet granulo 017 K/mm3 ed cytes 14:12 automat ed count (numb Granulo = 82.3 37.0-80 complet cyte 017 % .0 ed percent 14:12 age Blood = 36.4 37.0-47 complet hematoc 017 % .0 ed rit 14:12 (volume fractio n) Blood = 11.3 12.2-16 complet hemoglo 017 g/dL .2 ed bin 14:12 measure ment (mass/v olum Absolut = 1.2 0.7-4.5 complet e 017 K/mm3 ed lymphoc 14:12 yte count Lymphoc = 10.1 10-50.0 complet yte 017 % ed count, 14:12 blood, automat ed Mean = 29.2 27-31.2 complet corpusc 017 pg ed ular 14:12 hemoglo bin (MCH) determ Automat = 31.1 31.8-35 complet ed 017 g/dl .4 ed erythro 14:12 cyte mean corpusc ular h Automat = 93.7 82.2-97 complet ed 017 fl .8 ed erythro 14:12 cyte mean corpusc ular v Absolut = 0.8 0.1-1.0 complet e 017 K/mm3 ed monocyt 14:12 e count [place] % = 6.8 % 1.7-9.3 complet 017 ed 14:12 Automat = 8.1 7.4-10. complet ed 017 fl 4 ed blood 14:12 platele t mean volume kenneth Blood = 423 142-424 complet platele 017 K/mm3 ed t count 14:12 Red = 3.88 4.2-5.4 complet blood 017 M/mm3 ed cell 14:12 count Automat = 13.1 11.5-17 complet ed 017 % .5 ed erythro 14:12 cyte distrib ution width Blood = 11.9 4.8-10. complet leukocy 017 K/MM3 8 ed jany 14:12 count (number /volume ) Urinalysis with microscopy (05-12-2017 14:12) Urine = 6.0 5.0-8.5 complet pH 017 ed 14:12 Urine 1 + NEG complet protein 017 mg/dL ed 14:12 measure ment by automat ed t Erythro 5-10 0 complet cytes 017 5-10 L ed detecti 14:12 rbc/hpf on in urine sedimen t Urine > = 1.005-1 complet specifi 017 1.030 .030 ed c 14:12 gravity measure ment [place] 3-5 3-5 0-5 complet s 017 L ed epithel 14:12 #/hpf ial cells detecti on in u Urine 0.2 0.2 NEG complet urobili 017 L ed nogen 14:12 E.U./dL detecti on by test str Urine 5 - 10 O complet leukocy 017 wbc/hpf ed jany 14:12 count (number /volume ) Glucose = NEG complet ur 017 NEGATIV ed test 14:12 E strip Urine CLEAR CLEAR complet appeara 017 CLEAR L ed nce 14:12 determi nation Bacteri 3+ 3+ L O complet a 017 ed detecti 14:12 on in urine sedimen t by Urine NEGATIV NEG complet total 017 E ed bilirub 14:12 NEGATIV in E L detecti on by test Comment: BILIRUBIN CONFIRMED WITH ICTOTEST: NEGATIVE Urine 1+ 1+ L NEG complet blood 017 ed detecti 14:12 on Urine YELLOW YELLOW complet color 017 YELLOW ed 14:12 L Manual = OCC NONE complet eosinop 017 #/lpf ed hils/10 14:12 0 leukocy jany in uri Hyaline 5-10 NONE complet casts 017 5-10 L ed detecti 14:12 #/lpf on in urine sedimen Urine NEGATIV NEG complet ketones 017 E ed 14:12 NEGATIV detecti E L on by mg/dL automat ed jany Mucus TRACE NEG complet detecti 017 TRACE L ed on in 14:12 urine sedimen t by lig Urine NEGATIV NEG complet nitrite 017 E ed 14:12 NEGATIV detecti E L on by test strip Cardiac enzymes (05-12-2017 14:12) Serum = 2.4 0-4.0 complet or 017 U/L ed plasma 14:12 creatin e kinase MB (CK-M Serum 11-21-2 = 1.4 0.0-3.6 complet or 017 ng/mL ed plasma 14:12 creatin e kinase MB measu Serum = 59 26-192 complet or 017 U/L ed plasma 14:12 creatin e kinase measure m Serum 2 < 0.02 0.00-0. complet or 017 ng/mL 06 ed plasma 14:12 troponi n i.cardi ac measu Comprehensive metabolic panel (05-12-2017 14:12) Serum 05-12-2 = 0.6 1.1-1.8 complet or 017 ed plasma 14:12 albumin /globul in mass ra Serum = 2.5 3.4-5.0 complet or 017 gm/dL ed plasma 14:12 albumin measure ment (mas Serum = 52 46-116 complet or 017 U/L ed plasma 14:12 alkalin e phospha tase kenneth Serum = 0.4 0.2-1.0 complet or 017 mg/dL ed plasma 14:12 total bilirub in measure m Serum = 35 7-18 complet or 017 mg/dL ed plasma 14:12 urea nitroge n measure men Serum = 9.1 8.5-10. complet or 017 mg/dL 1 ed plasma 14:12 calcium measure ment (mas Serum = 107 98-107 complet or 017 mmoL/L ed plasma 14:12 chlorid e measure ment (mo Carbon = 28 21.0-32 complet dioxide 017 mmoL/L .0 ed 14:12 measure ment Serum = 1.3 0.55-1. complet or 017 mg/dL 02 ed plasma 14:12 creatin ine measure ment ( Estimat = 50 50-200 complet ion of 017 ML/MIN ed creatin 14:12 ine renal clearan ce Estimat = 40 59- complet ed 017 ML/MIN ed glomeru 14:12 lar filtrat ion rate (GF Comment: REFERENCE RANGE: >60 ML/MIN/1.73 SQUARE METERS Comment: If this patient is -[place], then multiply the Comment: result by 1.210. Serum 05-12-2 = 4.1 1.3-3.2 complet globuli 017 gm/dL ed n 14:12 measure ment (mass/v olume) Serum = 225 74-106 complet or 017 mg/dL ed plasma 14:12 glucose measure ment (mas Serum = 4.7 3.5-5.1 complet potassi 017 mmoL/L ed um 14:12 measure ment Serum = 143 136-145 complet sodium 017 mmoL/L ed measure 14:12 ment Serum = 16 15-37 complet or 017 U/L ed plasma 14:12 asparta te aminotr ansfera ALT = 21 12-78 complet (SGPT) 017 U/L ed ser/aly 14:12 s Protein = 6.6 6.4-8.2 complet total 017 gm/dL ed ser/aly 14:12 s D-dimer (05-12-2017 14:12) D-dimer = 4560 0-400 complet 017 ng/mL ed 14:12 Comment: Comment: NOTIFICATION RESULT Comment: The D-Dimer values are presented in units of mass(ng/mL) of Comment: D-Dimer units(DDU). Comment: Comment: This test has been FDA approved as an aid in the assessment Comment: and evaluation of suspected DIC, and thromboembolic events Comment: including PE and DVT. However, it does not have approval Comment: for cut-off values for the exclusion of these conditions. Glucose capillary blood glucometer (05-11-2017 11:48) Glucose = 156 70-110 complet 017 mg/dl ed capilla 11:[address] Trough gentamicin level (05-11-2017 09:35) Trough = 1.7 0-2.0 complet gentami 017 ug/ml ed tanya 09:35 level Glucose capillary blood glucometer (05-11-2017 07:07) Glucose = 227 70-110 complet 017 mg/dl ed capilla 07:[address] CBC w auto diff (05-11-2017 07:00) Automat = 0.0 0-0.2 complet ed 017 K/MM3 ed blood 07:00 basophi l count (count/ vo Baso % = 0.2 % 0.1-2.0 complet 017 ed 07:00 Automat 2 = 0.0 0.0-0.4 complet ed 017 K/mm3 ed blood 07:00 eosinop hil count Automat 2 = 0.5 % 0.1-12. complet ed 017 0 ed blood 07:00 eosinop hils/10 0 leukocy t Blood = 5.9 1.8-7.8 complet granulo 017 K/mm3 ed cytes 07:00 automat ed count (numb Granulo = 76.1 37.0-80 complet cyte 017 % .0 ed percent 07:00 age Blood = 30.9 37.0-47 complet hematoc 017 % .0 ed rit 07:00 (volume fractio n) Blood = 10.0 12.2-16 complet hemoglo 017 g/dL .2 ed bin 07:00 measure ment (mass/v olum Absolut = 1.2 0.7-4.5 complet e 017 K/mm3 ed lymphoc 07:00 yte count Lymphoc = 15.9 10-50.0 complet yte 017 % ed count, 07:00 blood, automat ed Mean = 29.9 27-31.2 complet corpusc 017 pg ed ular 07:00 hemoglo bin (MCH) determ Automat = 32.3 31.8-35 complet ed 017 g/dl .4 ed erythro 07:00 cyte mean corpusc ular h Automat = 92.6 82.2-97 complet ed 017 fl .8 ed erythro 07:00 cyte mean corpusc ular v Absolut = 0.6 0.1-1.0 complet e 017 K/mm3 ed monocyt 07:00 e count [place] % = 7.2 % 1.7-9.3 complet 017 ed 07:00 Automat 2 = 8.0 7.4-10. complet ed 017 fl 4 ed blood 07:00 platele t mean volume kenneth Blood = 289 142-424 complet platele 017 K/mm3 ed t count 07:00 Red -20-2 = 3.34 4.2-5.4 complet blood 017 M/mm3 ed cell 07:00 count Automat 20-2 = 12.9 11.5-17 complet ed 017 % .5 ed erythro 07:00 cyte distrib ution width Blood 20-2 = 7.8 4.8-10. complet leukocy 017 K/MM3 8 ed jany 07:00 count (number /volume ) Comprehensive metabolic panel (05-11-2017 07:00) Serum 11-20-2 = 0.6 1.1-1.8 complet or 017 ed plasma 07:00 albumin /globul in mass ra Serum -20-2 = 8.7 8.5-10. complet or 017 mg/dL 1 ed plasma 07:00 calcium measure ment (mas Serum 05-11-2 = 107 98-107 complet or 017 mmoL/L ed plasma 07:00 chlorid e measure ment (mo Carbon 05-11-2 = 23 21.0-32 complet dioxide 017 mmoL/L .0 ed 07:00 measure ment Serum 20-2 = 1.0 0.55-1. complet or 017 mg/dL 02 ed plasma 07:00 creatin ine measure ment ( Estimat 05-11-2 = 61 50-200 complet ion of 017 ML/MIN ed creatin 07:00 ine renal clearan ce Estimat 05-11-2 = 54 59- complet ed 017 ML/MIN ed glomeru 07:00 lar filtrat ion rate (GF Comment: REFERENCE RANGE: >60 ML/MIN/1.73 SQUARE METERS Comment: If this patient is -[place], then multiply the Comment: result by 1.210. Serum 11-20-2 = 3.8 1.3-3.2 complet globuli 017 gm/dL ed n 07:00 measure ment (mass/v olume) Serum 11-20-2 = 203 74-106 complet or 017 mg/dL ed plasma 07:00 glucose measure ment (mas Serum 20-2 = 3.8 3.5-5.1 complet potassi 017 mmoL/L ed um 07:00 measure ment Serum 11-20-2 = 143 136-145 complet sodium 017 mmoL/L ed measure 07:00 ment Serum 11-20-2 = 18 15-37 complet or 017 U/L ed plasma 07:00 asparta te aminotr ansfera ALT = 15 12-78 complet (SGPT) 017 U/L ed ser/aly 07:00 s Protein = 6.0 6.4-8.2 complet total 017 gm/dL ed ser/aly 07:00 s Serum 2 = 2.2 3.4-5.0 complet or 017 gm/dL ed plasma 07:00 albumin measure ment (mas Serum = 48 46-116 complet or 017 U/L ed plasma 07:00 alkalin e phospha tase kenneth Serum = 0.5 0.2-1.0 complet or 017 mg/dL ed plasma 07:00 total bilirub in measure m Serum = 34 7-18 complet or 017 mg/dL ed plasma 07:00 urea nitroge n measure men Serum or plasma gentamicin measurement ( (05-10-2017 23:40) Comment: COMMENTS TO IN SERVICE COORDINATOR: DO NOT NEED TO CALL PHARMACIST ON Comment: CALL WITH LEVEL Serum = 3.3 4.0-10. complet or 017 ug/ml 0 ed plasma 23:40 gentami tanya measure ment ( Glucose capillary blood glucometer (05-10-2017 22:00) Glucose = 217 70-110 complet 017 mg/dl ed capilla 22:[address] Glucose capillary blood glucometer (05-10-2017 16:41) Glucose = 178 70-110 complet 017 mg/dl ed capilla 16:[address] Serum or plasma gentamicin measurement ( (05-10-2017 16:20) Comment: COMMENTS TO IN SERVICE COORDINATOR: DO NOT NEED TO CALL PHARMACIST ON Comment: CALL WITH LEVEL Serum = 6.2 4.0-10. complet or 017 ug/ml 0 ed plasma 16:20 gentami tanya measure ment ( Glucose capillary blood glucometer (05-10-2017 11:29) Glucose = 229 70-110 complet 017 mg/dl ed capilla 11:[address] Gram negative automated antibiotic susceptibility test (05-10-2017 06:22) [place] 11-19-2 >= 8 complet ycin 017 [...] test by minimum inhibit ory concent ration Vancomy 11-19-2 <= 0.5 complet tanya 017 ug/ml ed suscept 06:22 ibility test by minimum inhibit ory concent ration Streptococcus pneumoniae automated antibiotic susceptibility test (05-10-2017 06:22) Ampicil 11-19-2 <= 0.25 complet [place] 017 ug/ml ed suscept 06:22 ibility test by minimum inhibit ory concent ration [place] 11-19-2 <= 0.25 complet ycin 017 ug/ml ed suscept 06:22 ibility test by minimum inhibit ory concent ration Ceftria 11-19-2 <= 0.12 complet xone 017 ug/ml ed suscept 06:22 ibility test by minimum inhibit ory concent ration Cefotax 11-19-2 <= 0.12 complet aleida 017 ug/ml ed suscept 06:22 ibility test by minimum inhibit ory concent ration Erythro 11-19-2 <= 0.12 complet mycin 017 ug/ml ed suscept 06:22 ibility test by minimum inhibit ory concent ration Levoflo = 4 complet xacin 017 ug/ml ed suscept 06:22 ibility test by minimum inhibit ory concent ration Vancomy <= 0.5 complet tanya 017 ug/ml ed [...] Glucose capillary blood glucometer (05-09-2017 06:06) Glucose 05-09-2 = 274 70-110 complet 017 mg/dl ed capilla 06:[address] Glucose capillary blood glucometer (05-08-2017 22:04) Glucose 05-08-2 = 268 70-110 complet 017 mg/dl ed capilla 22:[address] Urinalysis with microscopy (05-08-2017 18:12) Comment: Collected by nurse? Y Comment: Hold specimen in OE? N Urine CLEAR CLEAR complet appeara 017 CLEAR L ed nce 18:12 determi nation Bacteri 2+ 2+ L O complet a 017 ed detecti 18:12 on in urine sedimen t by Urine 1+ 1+ L NEG complet total 017 ed bilirub 18:12 in detecti on by test Comment: ICTOTEST = NEGATIVE Urine 3+ 3+ L NEG complet blood 017 ed detecti 18:12 on Urine YELLOW YELLOW complet color 017 YELLOW ed 18:12 L Glucose = TRACE NEG complet ur 017 ed test 18:12 strip Hyaline OCC OCC NONE complet casts 017 L ed detecti 18:12 #/lpf on in urine sedimen Urine 2+ 2+ L NEG complet ketones 017 mg/dL ed 18:12 detecti on by automat ed jany Mucus NEGATIV NEG complet detecti 017 E ed on in 18:12 NEGATIV urine E L sedimen t by lig Urine NEGATIV NEG complet nitrite 017 E ed 18:12 NEGATIV detecti E L on by test strip Urine = 6.0 5.0-8.5 complet pH 017 ed 18:12 Urine = TRACE NEG complet protein 017 mg/dL ed 18:12 measure ment by automat ed t Erythro 20-50 0 complet cytes 017 20-50 L ed detecti 18:12 on in rbc/hpf urine sedimen t Urine = 1.025 1.005-1 complet specifi 017 .030 ed c 18:12 gravity measure ment [place] 3-5 3-5 0-5 complet s 017 L ed epithel 18:12 #/hpf ial cells detecti on in u Urine 0.2 0.2 NEG complet urobili 017 L ed nogen 18:12 E.U./dL detecti on by test str Urine = OCC O complet leukocy 017 wbc/hpf ed jany 18:12 count (number /volume ) Urinalysis dipstick W Reflex Microscopic panel in [...] sedimen t by Light microsc opy Epithel 11-17-2 3-5 0#/hp complet ial 017 f - [...] ter CBC w auto diff (05-08-2017 08:20) Automat = 0.1 0.0-0.4 complet ed 017 K/mm3 ed blood 08:20 eosinop hil count Automat = 0.7 % 0.1-12. complet ed 017 0 ed blood 08:20 eosinop hils/10 0 leukocy t Blood = 7.0 1.8-7.8 complet granulo 017 K/mm3 ed cytes 08:20 automat ed count (numb Granulo = 78.0 37.0-80 complet cyte 017 % .0 ed percent 08:20 age Blood = 27.6 37.0-47 complet hematoc 017 % .0 ed rit 08:20 (volume fractio n) Blood = 9.3 12.2-16 complet hemoglo 017 g/dL .2 ed bin 08:20 measure ment (mass/v olum Absolut = 1.4 0.7-4.5 complet e 017 K/mm3 ed lymphoc 08:20 yte count Lymphoc = 15.5 10-50.0 complet yte 017 % ed count, 08:20 blood, automat ed Mean = 30.5 27-31.2 complet corpusc 017 pg ed ular 08:20 hemoglo bin (MCH) determ Automat = 33.7 31.8-35 complet ed 017 g/dl .4 ed erythro 08:20 cyte mean corpusc ular h Automat = 90.6 82.2-97 complet ed 017 fl .8 ed erythro 08:20 cyte mean corpusc ular v Absolut = 0.5 0.1-1.0 complet e 017 K/mm3 ed monocyt 08:20 e count [place] % = 5.7 % 1.7-9.3 complet 017 ed 08:20 Automat = 8.2 7.4-10. complet ed 017 fl 4 ed blood 08:20 platele t mean volume kenneth Blood = 140 142-424 complet platele 017 K/mm3 ed t count 08:20 Red = 3.05 4.2-5.4 complet blood 017 M/mm3 ed cell 08:20 count Automat = 12.6 11.5-17 complet ed 017 % .5 ed erythro 08:20 cyte distrib ution width Blood = 8.9 4.8-10. complet leukocy 017 K/MM3 8 ed jany 08:20 count (number /volume ) Automat = 0.0 0-0.2 complet ed 017 K/MM3 ed blood 08:20 basophi l count (count/ vo Baso % 11-17-2 = 0.2 % 0.1-2.0 complet 017 ed 08:20 Basic metabolic panel (05-08-2017 08:20) Serum --2 = 10 7-18 complet or 017 mg/dL ed plasma 08:20 urea nitroge n measure men Serum 2 = 8.4 8.5-10. complet or 017 mg/dL 1 ed plasma 08:20 calcium measure ment (mas Serum = 101 98-107 complet or 017 mmoL/L ed plasma 08:20 chlorid e measure ment (mo Carbon = 29 21.0-32 complet dioxide 017 mmoL/L .0 ed 08:20 measure ment Serum = 0.7 0.55-1. complet or 017 mg/dL 02 ed plasma 08:20 creatin ine measure ment ( Estimat = 83 50-200 complet ion of 017 ML/MIN ed creatin 08:20 ine renal clearan ce Estimat = 81 59- complet ed 017 ML/MIN ed glomeru 08:20 lar filtrat ion rate (GF Comment: REFERENCE RANGE: >60 ML/MIN/1.73 SQUARE METERS Comment: If this patient is -[place], then multiply the Comment: result by 1.210. Serum = 197 74-106 complet or 017 mg/dL ed plasma 08:20 glucose measure ment (mas Serum = 3.2 3.5-5.1 complet potassi 017 mmoL/L ed um 08:20 measure ment Serum = 135 136-145 complet sodium 017 mmoL/L ed measure 08:20 ment Glucose capillary blood glucometer (05-08-2017 06:03) Glucose = 175 70-110 complet 017 mg/dl ed capilla 06:[address] Glucose capillary blood glucometer (05-07-2017 20:19) Glucose = 190 70-110 complet 017 mg/dl ed capilla 20:[address] Glucose capillary blood glucometer (05-07-2017 18:24) Glucose = 240 70-110 complet 017 mg/dl ed capilla 18:[address] Glucose capillary blood glucometer (05-07-2017 11:42) Glucose = 302 70-110 complet 017 mg/dl ed capilla 11:[address] Basic metabolic panel (05-07-2017 06:15) Serum 05-07-2 = 11 7-18 complet or 017 mg/dL ed plasma 06:15 urea nitroge n measure men Serum 2 = 99 98-107 complet or 017 mmoL/L ed plasma 06:15 chlorid e measure ment (mo Carbon = 30 21.0-32 complet dioxide 017 mmoL/L .0 ed 06:15 measure ment Serum 2 = 0.8 0.55-1. complet or 017 mg/dL 02 ed plasma 06:15 creatin ine measure ment ( Estimat = 73 50-200 complet ion of 017 ML/MIN ed creatin 06:15 ine renal clearan ce Estimat = 69 59- complet ed 017 ML/MIN ed glomeru 06:15 lar filtrat ion rate (GF Comment: REFERENCE RANGE: >60 ML/MIN/1.73 SQUARE METERS Comment: If this patient is -[place], then multiply the Comment: result by 1.210. Serum = 265 74-106 complet or 017 mg/dL ed plasma 06:15 glucose measure ment (mas Serum 2 = 3.2 3.5-5.1 complet potassi 017 mmoL/L ed um 06:15 measure ment Serum = 135 136-145 complet sodium 017 mmoL/L ed measure 06:15 ment Serum 2 = 8.7 8.5-10. complet or 017 mg/dL 1 ed plasma 06:15 calcium measure ment (mas CBC w auto diff (05-07-2017 06:15) Automat 05-07-2 = 0.0 0-0.2 complet ed 017 K/MM3 ed blood 06:15 basophi l count (count/ vo Baso % = 0.2 % 0.1-2.0 complet 017 ed 06:15 Automat 2 = 0.0 0.0-0.4 complet ed 017 K/mm3 ed blood 06:15 eosinop hil count Automat = 0.2 % 0.1-12. complet ed 017 0 ed blood 06:15 eosinop hils/10 0 leukocy t Blood = 6.6 1.8-7.8 complet granulo 017 K/mm3 ed cytes 06:15 automat ed count (numb Granulo = 81.5 37.0-80 complet cyte 017 % .0 ed percent 06:15 age Blood = 28.9 37.0-47 complet hematoc 017 % .0 ed rit 06:15 (volume fractio n) Blood = 9.7 12.2-16 complet hemoglo 017 g/dL .2 ed bin 06:15 measure ment (mass/v olum Absolut = 1.0 0.7-4.5 complet e 017 K/mm3 ed lymphoc 06:15 yte count Lymphoc = 12.0 10-50.0 complet yte 017 % ed count, 06:15 blood, automat ed Mean = 30.2 27-31.2 complet corpusc 017 pg ed ular 06:15 hemoglo bin (MCH) determ Automat = 33.3 31.8-35 complet ed 017 g/dl .4 ed erythro 06:15 cyte mean corpusc ular h Automat = 90.8 82.2-97 complet ed 017 fl .8 ed erythro 06:15 cyte mean corpusc ular v Absolut = 0.5 0.1-1.0 complet e 017 K/mm3 ed monocyt 06:15 e count [place] % = 6.2 % 1.7-9.3 complet 017 ed 06:15 Automat = 8.1 7.4-10. complet ed 017 fl 4 ed blood 06:15 platele t mean volume kenneth Blood = 156 142-424 complet platele 017 K/mm3 ed t count 06:15 Red = 3.18 4.2-5.4 complet blood 017 M/mm3 ed cell 06:15 count Automat = 12.5 11.5-17 complet ed 017 % .5 ed erythro 06:15 cyte distrib ution width Blood = 8.2 4.8-10. complet leukocy 017 K/MM3 8 ed jany 06:15 count (number /volume ) Glucose capillary blood glucometer (05-07-2017 06:14) Glucose 05-07-2 = 276 70-110 complet 017 mg/dl ed capilla 06:[address] Glucose capillary blood glucometer (05-06-2017 21:06) Glucose 2 = 411 70-110 complet 017 mg/dl ed capilla 21:[address] Blood type and screen (05-06-2017 10:00) Rh 05-06-2 POSITIV complet blood 017 E ed group 10:00 POSITIV typing E L Materna POSITIV NEGATIV complet l 017 E E ed antibod 10:00 POSITIV y E L screen Blood A A L complet ABO 017 ed group 10:00 typing Blood type & Indirect antibody screen panel in Blood (05-06-2017 10:00) Blood 05-06- POSITIV NEGATIV Abnorma complet group 017 E E l ed antibod 10:00 y screen [Presen ce] in Serum or Plasma Rh 05-06- POSITIV complet [Type] 017 E ed in 10:00 Blood ABO 15-2 A complet group 017 ed [Type] 10:00 in Blood Glucose capillary blood glucometer (05-06-2017 06:35) Glucose = 226 70-110 complet 017 mg/dl ed capilla 06:[address] Glucose capillary blood glucometer (05-05-2017 19:36) Glucose = 277 70-110 complet 017 mg/dl ed capilla 19:[address] Urinalysis with microscopy (05-05-2017 13:50) Urine SL CLEAR complet appeara 017 CLOUDY ed nce 13:50 SL determi CLOUDY nation L Bacteri 4+ 4+ L O complet a 017 ed detecti 13:50 on in urine sedimen t by Urine NEGATIV NEG complet total 017 E ed bilirub 13:50 NEGATIV in E L detecti on by test Urine 11-14-2 NEGATIV NEG complet blood 017 E ed detecti 13:50 NEGATIV on E L Urine YELLOW YELLOW complet color 017 YELLOW ed 13:50 L Glucose = NEG complet ur 017 NEGATIV ed test 13:50 E strip Urine NEGATIV NEG complet ketones 017 E ed 13:50 NEGATIV detecti E L on by mg/dL automat ed jany Mucus NEGATIV NEG complet detecti 017 E ed on in 13:50 NEGATIV urine E L sedimen t by lig Urine NEGATIV NEG complet nitrite 017 E ed 13:50 NEGATIV detecti E L on by test strip Urine = 7.0 5.0-8.5 complet pH 017 ed 13:50 Urine = NEG complet protein 017 NEGATIV ed 13:50 E mg/dL measure ment by automat ed t Erythro NONE 0 complet cytes 017 NONE L ed detecti 13:50 rbc/hpf on in urine sedimen t Urine = 1.010 1.005-1 complet specifi 017 .030 ed c 13:50 gravity measure ment [place] NONE 0-5 complet s 017 NONE L ed epithel 13:50 #/hpf ial cells detecti on in u Urine 0.2 0.2 NEG complet urobili 017 L ed nogen 13:50 E.U./dL detecti on by test str Urine = OCC O complet leukocy 017 wbc/hpf ed jany 13:50 count (number /volume ) Urine culture (05-05-2017 13:50) Urine STREP complet culture 017 SPECIES ed 13:50 : STREP GALLOLY TICUS SSP. PASTEUR IANUS Urine GRAM complet culture 017 POSITIV ed 13:50 E BACILLU S SPECIES TO BE SENT TO Urine [id number] complet culture 017 5 ed 13:50 Strepto coccus species SCT STSP STREPTO COCCUS SPECIES L Comment: Comment: * This is a corrected result. * Comment: Comment: A prior result that was reported as final has been changed. Urinalysis dipstick W Reflex Microscopic panel in [...] 13:50 ce] in Urine by Test strip CBC w auto diff (05-05-2017 12:50) Blood = 6.4 4.8-10. complet leukocy 017 K/MM3 8 ed jany 12:50 count (number /volume ) Automat = 12.3 11.5-17 complet ed 017 % .5 ed erythro 12:50 cyte distrib ution width Red = 4.07 4.2-5.4 complet blood 017 M/mm3 ed cell 12:50 count Automat = 0.0 0-0.2 complet ed 017 K/MM3 ed blood 12:50 basophi l count (count/ vo Baso % = 0.4 % 0.1-2.0 complet 017 ed 12:50 Automat = 0.1 0.0-0.4 complet ed 017 K/mm3 ed blood 12:50 eosinop hil count Automat = 0.9 % 0.1-12. complet ed 017 0 ed blood 12:50 eosinop hils/10 0 leukocy t Blood = 4.7 1.8-7.8 complet granulo 017 K/mm3 ed cytes 12:50 automat ed count (numb Granulo = 73.3 37.0-80 complet cyte 017 % .0 ed percent 12:50 age Blood = 36.1 37.0-47 complet hematoc 017 % .0 ed rit 12:50 (volume fractio n) Blood = 12.3 12.2-16 complet hemoglo 017 g/dL .2 ed bin 12:50 measure ment (mass/v olum Absolut = 1.3 0.7-4.5 complet e 017 K/mm3 ed lymphoc 12:50 yte count Lymphoc = 20.5 10-50.0 complet yte 017 % ed count, 12:50 blood, automat ed Mean = 30.3 27-31.2 complet corpusc 017 pg ed ular 12:50 hemoglo bin ([facility]) determ Automat = 34.1 31.8-35 complet ed 017 g/dl .4 ed erythro 12:50 cyte mean corpusc ular h Automat = 88.7 82.2-97 complet ed 017 fl .8 ed erythro 12:50 cyte mean corpusc ular v Absolut = 0.3 0.1-1.0 complet e 017 K/mm3 ed monocyt 12:50 e count [place] % = 5.0 % 1.7-9.3 complet 017 ed 12:50 Automat = 8.4 7.4-10. complet ed 017 fl 4 ed blood 12:50 platele t mean volume kenneth Blood = 174 142-424 complet platele 017 K/mm3 ed t count 12:50 Comprehensive metabolic panel (05-05-2017 12:50) Serum 05-05-2 = 3.4 3.4-5.0 complet or 017 gm/dL ed plasma 12:50 albumin measure ment (mas Serum = 60 46-116 complet or 017 U/L ed plasma 12:50 alkalin e phospha tase kenneth Serum = 0.5 0.2-1.0 complet or 017 mg/dL ed plasma 12:50 total bilirub in measure m Serum = 9 7-18 complet or 017 mg/dL ed plasma 12:50 urea nitroge n measure men Serum = 9.3 8.5-10. complet or 017 mg/dL 1 ed plasma 12:50 calcium measure ment (mas Serum = 98 98-107 complet or 017 mmoL/L ed plasma 12:50 chlorid e measure ment (mo Carbon = 29 21.0-32 complet dioxide 017 mmoL/L .0 ed 12:50 measure ment Serum = 0.9 0.55-1. complet or 017 mg/dL 02 ed plasma 12:50 creatin ine measure ment ( Estimat = 101 50-200 complet ion of 017 ML/MIN ed creatin 12:50 ine renal clearan ce Estimat = 61 59- complet ed 017 ML/MIN ed glomeru 12:50 lar filtrat ion rate (GF Comment: REFERENCE RANGE: >60 ML/MIN/1.73 SQUARE METERS Comment: If this patient is -Togolese, then multiply the Comment: result by 1.210. Serum 2 = 3.3 1.3-3.2 complet globuli 017 gm/dL ed n 12:50 measure ment (mass/v olume) Serum = 185 74-106 complet or 017 mg/dL ed plasma 12:50 glucose measure ment (mas Serum = 3.4 3.5-5.1 complet potassi 017 mmoL/L ed um 12:50 measure ment Serum = 136 136-145 complet sodium 017 mmoL/L ed measure 12:50 ment Serum = 23 15-37 complet or 017 U/L ed plasma 12:50 asparta te aminotr ansfera ALT = 19 12-78 complet (SGPT) 017 U/L ed ser/aly 12:50 s Protein = 6.7 6.4-8.2 complet total 017 gm/dL ed ser/aly 12:50 s Serum = 1.0 1.1-1.8 complet or 017 ed plasma 12:50 albumin /globul in mass ra Magnesium measurement (05-05-2017 12:50) Magnesi = 1.7 1.7-2.8 complet um 017 mg/dL ed measure 12:50 ment
--- OUTSIDE RECORDS SUMMARY | 2017-05-12 17:10 | External Medical Summary Rpt | CCD ---
Author Author , GAIL REYNOLDS Address Unknown Phone [email or web address] Purpose Continuity of Care Document - 05-05-2017 [...] 017 K/mm3 ed monocyt 14:12 e count [place] % = 6.8 % 1.7-9.3 complet 017 [...] SQUARE METERS Comment: If this patient is -Russian, then multiply the Comment: result by 1.210. [...] 017 K/mm3 ed monocyt 07:00 e count [place] % = 7.2 % 1.7-9.3 complet 017 [...] SQUARE METERS Comment: If this patient is -Russian, then multiply the Comment: result by 1.210. [...] measurement ( (05-10-2017 23:40) Comment: COMMENTS TO LENS CUTTER: DO NOT NEED TO CALL PHARMACIST ON [...] measurement ( (05-10-2017 16:20) Comment: COMMENTS TO LENS CUTTER: DO NOT NEED TO CALL PHARMACIST ON [...] 017 K/mm3 ed monocyt 08:20 e count [place] % = 5.7 % 1.7-9.3 complet 017 [...] SQUARE METERS Comment: If this patient is -Russian, then multiply the Comment: result by 1.210. [...] SQUARE METERS Comment: If this patient is -Russian, then multiply the Comment: result by 1.210. [...] 017 K/mm3 ed monocyt 06:15 e count [place] % = 6.2 % 1.7-9.3 complet 017 [...] S SPECIES TO BE SENT TO Urine [id number] complet culture 017 5 ed 13:50 Strepto [...] 017 K/mm3 ed monocyt 12:50 e count [place] % = 5.0 % 1.7-9.3 complet 017 [...] SQUARE METERS Comment: If this patient is -Russian, then multiply the Comment: result by 1.210. [...]
--- OUTSIDE RECORDS SUMMARY | 2017-05-12 17:11 | External Medical Summary Rpt | CCD ---
Author Author GAIL Address Unknown Phone [email or web address] Purpose Continuity of Care Document - through 2016
--- OUTSIDE RECORDS SUMMARY | 2017-05-12 17:11 | External Medical Summary Rpt | CCD ---
Demographics Preferred Language Welsh Marital Status Unknown Yarsanism Affiliation Unknown Race Unknown Ethnic Group Unknown Author Author , GAIL REYNOLDS Address Unknown Phone Immunization No patient found.
--- OUTSIDE RECORDS SUMMARY | 2017-05-12 17:11 | External Medical Summary Rpt | CCD ---
Author Author GAIL Address Unknown Phone [email or web address] Purpose Continuity of Care Document - through 2016
--- OUTSIDE RECORDS SUMMARY | 2017-05-12 17:11 | External Medical Summary Rpt | CCD ---
Demographics Preferred Language Tristanian Marital Status Unknown Episcopal Affiliation Unknown Race Unknown Ethnic Group Unknown Author Author , GAIL REYNOLDS Address Unknown Phone Immunization No patient found.
--- OUTSIDE RECORDS SUMMARY | 2017-05-12 17:12 | External Medical Summary Rpt ---
Author Author GAIL Matthew, [employer] Organization [employer] Address Unknown Phone Unavailable Results Lactate [Moles/volume] in Blood Observa Value Referen Units Interpr Notes Date tion ce etation Range Lactate 0.4 - 2.0 mmol/L Normal No May 12 [Moles/vo informati 2016 2:40 lume] in on in PM Blood source data Fibrin D-dimer FEU [Mass/volume] in Platelet poor plasma Observa Value Referen Units Interpr Notes Date tion ce etation Range Fibrin 0 - 400 ng/mL High May 12 D-dimer alert NOTIFICAT 2017 2:12 FEU ION PM [Mass/vol RESULT ume] in The Platelet D-Dimer poor values plasma are presented in units of mass(ng/m L) ofD-Dimer units(DDU ).This test has been FDA approved as an aid in the assessmen tand evaluatio n of suspected DIC, and thromboem bolic eventsinc luding PE and DVT. However, it does not have approvalf or cut-off values for the exclusion of these condition s. CBC W Auto Differential panel in Blood Observa Value Referen Units Interpr Notes Date tion ce etation Range Basophils 0 - 0.2 K/MM3 Normal No May 12 informati 2016 2:12 [#/volume on in PM ] in source Blood by data Automated count Basophils 0.1 - 2.0 % Normal No May 12 informati 2016 2:12 leukocyte on in PM s in source Blood by data Automated count Eosinophi 0.0 - 0.4 K/mm3 Normal No May 12 ls informati 2016 2:12 [#/volume on in PM ] in source Blood by data Automated count Eosinophi 0.1 - % Normal No May 12 ls/100 12.0 informati 2016 2:12 leukocyte on in PM s in source Blood by data Automated count Granulocy 1.8 - 7.8 K/mm3 High No May 12 jany informati 2017 2:12 [#/volume on in PM ] in source Blood by data Automated count Granulocy 37.0 - % High No May 12 jany/100 80.0 informati 2016 2:12 leukocyte on in PM s in source Blood by data Automated count Hematocri 37.0 - % Low No May 12 t [Volume 47.0 inform2016 2:12 on in PM Fraction] source of Blood data Hemoglobi 12.2 - g/dL Low No May 12 n 16.2 informati 2016 2:12 [Mass/vol on in PM ume] in source Blood data Lymphocyt 0.7 - 4.5 K/mm3 Normal No May 12 es informati 2016 2:12 [#/volume on in PM ] in source Unspecifi data ed specimen by Automated count Lymphocyt 10 - 50.0 % Normal No May 122016 2:12 [#/volume on in PM ] in source Unspecifi data ed specimen by Automated count Erythrocy 27 - 31.2 pg Normal May 12 te mean 2016 2:12 corpuscul on in PM ar source hemoglobi data n [Entitic mass] Erythrocy 31.8 - g/dl Low No May 12 te mean 35.4 informati 2016 2:12 corpuscul on in PM ar source hemoglobi data n concentra tion [Mass/vol ume] by Automated count Erythrocy 82.2 - fl Normal No May 12 te mean 97.8 ati 2016 2:12 corpuscul on in PM ar volume source [Entitic data volume] by Automated count Monocytes 0.1 - 1.0 K/mm3 Normal No May 12ati 2016 2:12 [#/volume on in PM ] in source Blood by data Automated count Monocytes 1.7 - 9.3 % Normal No May 12 /100 informati 2017 2:12 leukocyte on in PM s in source Blood by data Automated count Platelet 7.4 - fl Normal No May 12 mean 10.4 informati 2016 2:12 volume on in PM [Entitic source volume] data in Blood by Automated count Platelets 142 - 424 K/mm3 No May 12 informati informati 2016 2:12 [#/volume on in on in PM ] in source source Blood data data Erythrocy 4.2 - 5.4 M/mm3 Low No May 12 jany informati 2016 2:12 [#/volume on in PM ] in source Amniotic data fluid Erythrocy 11.5 - % Normal No May 12 te 17.5 informati 2016 2:12 distribut on in PM ion width source [Entitic data volume] by Automated count Leukocyte 4.8 - K/MM3 High No May 12 s 10.8 informati 2016 2:12 [#/volume on in PM ] in source Blood data Glucose [Mass/volume] in Capillary blood by Glucometer Observa Value Referen Units Interpr Notes Date tion ce etation Range Glucose 70 - 110 mg/dl High No May 11 [Mass/vol informati 2017 ume] in on in 11:48 AM Capillary [...] Range Glucose 70 - 110 mg/dl High May 11 [Mass/vol informati 2016 7:07 ume] [...] mg/dL Normal No May 11 .total informati 2017 7:00 [Mass/vol on in AM ume] in source Serum or data Plasma Urea 7 - 18 mg/dL High No May 11 nitrogen informati 2017 7:00 [Mass/vol on in AM ume] in source Serum or data Plasma Calcium 8.5 - mg/dL Normal May 11 [Mass/vol 10.1 informati 2016 7:00 [...] data Glucose 74 - 106 mg/dL High May 11 [Mass/vol informati 2016 7:00 ume] in on in AM Serum or source Plasma data Potassium 3.5 - 5.1 mmoL/L Normal May 11 informati 2016 7:00 [Moles/vo on [...] Protein 6.4 - 8.2 gm/dL Low No May 11 [Mass/vol informati [...] 0.1 - 2.0 % Normal No Apr 20 /100 informati [...] % Normal No May 11 te 17.5 ati 2016 7:00 distribut on in AM ion width source [Entitic data volume] by Automated count Leukocyte 4.8 - K/MM3 Normal No May 11 s 10.8 2016 7:00 [#/volume on in AM ] in source Blood data Gentamicin [Mass/volume] in Serum or Plasma Observa Value Referen Units Interpr Notes Date tion ce etation Range COMMENTS TO ADVERTISING TRAFFIC MANAGER: DO NOT NEED TO CALL PHARMACIST MUSIC BOX MECHANIC WITH LEVEL Gentamici 4.0 - ug/ml Low [...] Interpr Notes Date ti ce etation Range COMMENTS TO ADVERTISING TRAFFIC MANAGER: DO NOT NEED TO CALL PHARMACIST MUSIC BOX MECHANIC WITH LEVEL Gentamici 4.0 - ug/ml Normal [...] High No May 09 [Mass/vol informati 2016 4:41 ume] in on [...] mg/dl High No May 08 [Mass/vol informati 2017 ume] in on in [...] Interpr Notes Date ti ce etation Range Urea 7 - 18 [...] Sodium 136 - 145 mmoL/L Low No May 08 [Moles/vo informati 2016 8:20 [...] - 2.0 % Normal No May 08 /100 informati 2016 8:20 leukocyte on in AM [...] - 9.3 % Normal No May 08 /100 informati 2017 8:20 leukocyte on in AM s in [...] count Leukocyte 4.8 - K/MM3 Normal No Apr 17 s 10.8 informati 2016 8:20 [#/volume on in AM ] in source Blood data Glucose [Mass/volume] in Capillary blood by Glucometer Observa Value Referen Units Interpr Notes Date tion ce etation Range Glucose 70 - 110 mg/dl High No May 08 [Mass/vol informati 2017 6:03 ume] in on in AM Capillary [...] High No May 07 [Mass/vol alert informati 2017 ume] in on in 11:42 AM Capillary source blood by data Glucomete r CBC W Auto Differential panel in Blood Observa Value Referen Units Interpr Notes Date tion ce etation Range Basophils 0 - 0.2 K/MM3 Normal No Apr 16 informati 2016 6:15 [#/volume on in AM ] in source Blood by data Automated count Basophils 0.1 - 2.0 % Normal No Apr 16 /100 informati 2016 6:15 leukocyte on in AM s in source Blood by data Automated count Eosinophi 0.0 - 0.4 K/mm3 Normal No Apr 16 ls informati 2016 6:15 [#/volume on in AM [...] 1.0 K/mm3 Normal No May 07 informati 2017 6:15 [#/volume on in AM ] in source Blood by data Automated count Monocytes 1.7 - 9.3 % Normal No Apr 16 /100 informati 2017 6:15 leukocyte on in AM s in source Blood by data Automated count Platelet 7.4 - fl Normal No May 07 mean 10.4 informati 2016 6:15 volume on in AM [Entitic source volume] data in Blood by Automated count Platelets 142 - 424 K/mm3 Normal No Nov 16 informati 2016 6:15 [#/volume on in AM ] in source Blood data Erythrocy 4.2 - 5.4 M/mm3 Low No Apr 16 jany informati 2016 6:15 [#/volume on in AM ] in source Amniotic data fluid Erythrocy 11.5 - % Normal No May 07 te 17.5 informati 2016 6:15 distribut on in AM ion width source [Entitic data volume] by Automated count Leukocyte 4.8 - K/MM3 No No May 07 s 10.8 informati informati 2016 6:15 [#/volume on in on in AM [...] 3.5 - 5.1 mmoL/L Low No May 07 informati 2016 6:15 [Moles/vo on in AM lume] in [...] 70 - 110 mg/dl High No Apr 15 [Mass/vol alert informati 2016 9:06 ume] in on in PM Capillary source blood by data Glucomete r Blood type & Indirect antibody screen panel in Blood Observa Value Referen Units Interpr Notes ti ce etation Range Blood POSITIV NEGATIV No Abnorma No May 06 group E E informa l informa 2017 antibod tion in in 10:00 y source source AM screen data data [Presen ce] in Serum or Plasma Rh POSITIV No No No No May 06 [Type] E informa informa informa informa 2017 in tion in tion in tion in tion in 10:00 Blood source source source source AM data data data data ABO A No No No No May 06 group informa informa informa informa 2016 [Type] tion in in tion in tion in 10:00 in source source source source AM Blood data data data data Glucose [Mass/volume] in Capillary blood by Glucometer Observa Value Referen Units Interpr Notes Date ce etation Range Glucose 70 - 110 mg/dl High No Apr 15 [Mass/vol informati 2016 6:35 ume] in on in AM Capillary source blood by data Glucomete r Glucose [Mass/volume] in Capillary blood by Glucometer Observa Value Referen Units Interpr Notes Date ti ce etation Range Glucose 70 - 110 mg/dl High No Apr 14 [Mass/vol informati 2016 7:36 ume] in on in PM Capillary source blood by data Glucomete r Urinalysis dipstick W Reflex Microscopic panel in Urine Observa Value Referen Units Interpr Notes Date tion ce etation Range Appeara SL CLEAR No No No Apr 14 nce of CLOUDY informa informa informa 2017 Urine tion in tion in tion in 1:50 PM source source source data data data Bacteri 4+ O No No No Apr 14 a informa informa informa 2016 [Presen tion in tion in tion in 1:50 PM ce] in source source source Urine data data data sedimen t by Light microsc opy Bilirub NEGATIV NEG No No No Apr 14 in E informa informa informa 2017 [Presen tion in tion in tion in 1:50 PM ce] in source source source Urine data data data by Test strip Erythro NEGATIV NEG No No No May 05 cytes E informa informa informa 2017 [Presen tion in tion in tion in 1:50 PM ce] in source source source Urine data data data Color YELLOW YELLOW No No No May 05 of informa informa informa 2016 Urine tion in tion in tion in 1:50 PM source source source data data data Glucose NEG No No No Apr 14 [Mass/vol informati informati informati 2017 1:50 ume] in on in on in [...] opy Nitrite NEGATIV NEG No No No Apr 14 E informa informa informa 2016 [Presen tion in tion in tion in 1:50 PM ce] in source source source Urine data data data by Test strip pH of 5.0 - 8.5 No Normal No Apr 14 Urine informati informati 2017 1:50 on in on in PM source source data data Protein NEG mg/dL No No Apr 14 [Mass/vol informati informati 2017 1:50 ume] in on in on in PM Urine by source source Automated data data test strip Erythro NONE 0 rbc/hpf No No Apr 14 cytes informa informa 2017 [Presen tion in tion in 1:50 PM ce] in source source Urine data data sedimen t by Light microsc opy Specific 1.005 - No Normal No Apr 14 gravity 1.030 informati informati 2017 1:50 of Urine on in on in [...] No May 05 [Mass/vol informati informati informati 2017 1:50 ume] in on in on in [...] data data Urobili 0.2 NEG E.U./dL No May 05 nogen informa informa 2016 [...] 18 mg/dL Normal No Apr 14 nitrogen 2016 [Mass/vol on in 12:50 PM ume] in source Serum or data Plasma Calcium 8.5 - mg/dL Normal No Apr 14 [Mass/vol 10.1 informati 2016 ume] in on in 12:50 PM Serum or source Plasma data Chloride 98 - 107 mmoL/L Normal No Apr 14 [Moles/vo informati 2016 lume] in on in 12:50 PM Serum or source Plasma data Carbon 21.0 - mmoL/L Normal No Apr 14 dioxide, 32.0 informati 2016 total on in 12:50 PM [Moles/vo source lume] in data Serum or Plasma Creatinin 0.55 - mg/dL Normal No May 05 e 1.02 inform2016 [Mass/vol on in 12:50 PM ume] in source Serum or data Plasma Creatinin 50 - 200 ML/MIN Normal No May 05 e renal 2016 clearance on in 12:50 PM source predicted [...] 3.5 - 5.1 mmoL/L Low No May 05 inform2016 [Moles/vo on in 12:50 PM lume] in source Serum or data Plasma Sodium 136 - 145 mmoL/L Normal No Apr 14 [Moles/vo informati 2016 lume] in on in [...] Protein 6.4 - 8.2 gm/dL Normal No May 05 [Mass/vol 2016 ume] in on in 12:50 PM Serum or source Plasma data CBC W Auto Differential panel in Blood Observa Value Referen Units Interpr Notes Date tion ce etation Range Basophils 0 - 0.2 K/MM3 Normal No May 052016 [#/volume on in 12:50 PM ] in source Blood by data Automated count Basophils 0.1 - 2.0 % Normal No May 05 /100 2016 leukocyte on in 12:50 PM s in source Blood by data Automated count Eosinophi 0.0 - 0.4 K/mm3 Normal No May 05 ls 2016 [#/volume on in 12:50 PM ] in source Blood by data Automated count Eosinophi 0.1 - % Normal No May 05 ls/100 12.0 2016 leukocyte on in 12:50 PM s in source Blood by data Automated count Granulocy 1.8 - 7.8 K/mm3 Normal No May 05 jany 2016 [#/volume on in 12:50 PM ] in source Blood by data Automated count Granulocy 37.0 - % Normal No May 05 jany/100 80.0 2016 leukocyte on in 12:50 [...]
--- OUTSIDE RECORDS SUMMARY | 2017-05-12 17:12 | External Medical Summary Rpt ---
[...] Date tion ce etation Range COMMENTS TO ARTIFICIAL LIMB FITTER: DO NOT NEED TO CALL PHARMACIST CASHIER ASSOCIATE WITH LEVEL Gentamici 4.0 - ug/ml Low [...] Date ti ce etation Range COMMENTS TO ARTIFICIAL LIMB FITTER: DO NOT NEED TO CALL PHARMACIST CASHIER ASSOCIATE WITH LEVEL Gentamici 4.0 - ug/ml Normal [...]
[2017-05-12 18:11] VITALS: BP 111/62
--- NOTE | 2017-05-12 19:26 | CONSULT NOTE ---
Standard Demographics Patient Demo Date of Consultation: 05/12/17 Referring Provider: Daniel Mata MD Reason for Consultation: ileus PRIMARY DIAGNOSIS: ileus Allergies: Coded Allergies: Penicillins (05/06/17) TOMATOES (FOOD) (From TOMATOES (FOOD/DRUG)) (UNKNOWN 05/06/17) egg (makes me break out 05/06/17) morphine ("MAKES HER CRAZY" 05/06/17) tomato (05/06/17) History of Present Illness Chief Complaint: Hypoxia History of Present Illness: This is a 77-year-old female seen in consultation from Dr. Mata for evaluation regarding ileus. She is one-week status post hip surgery. Earlier today she is transferred to the emergency department after being found in a state of decreased alertness. She was found to be hypoxic. Workup and management emergency department included a CT scan which revealed signs consistent with ileus with concomitant severe gastric distention. Past Medical History Reports: CAD, congestive heart failure, hypertension, diabetes mellitus. 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 PROCEDURES VEIN STRIPPING-LEGS RT OVARIAN TUMOR REMOVED (11 POUNDS) GALL STONES REMOVED lt hip surgery Allergies Coded Allergies: Penicillins (05/06/17) TOMATOES (FOOD) (From TOMATOES (FOOD/DRUG)) (UNKNOWN 05/06/17) egg (makes me break out 05/06/17) morphine ("MAKES HER CRAZY" 05/06/17) tomato (05/06/17) Medications: Active Scripts METFORMIN HCL (Metformin 1000MG) 1,000 MG PO BID #60 Prov: 02/25/11 Irbesartan (Avapro) 150 MG PO DAILY #30 Prov: 02/25/11 HYDROCODONE/ACETAMINOPHEN (Hydrocodon-Acetaminophen 5-325) 1-2 TAB PO Q4HP PRN MODERATE TO SEVERE PAIN #24 TAB Prov: 05/11/17 Clindamycin Hcl (Clindamycin 300MG) 300 MG PO TID #15 CAP Prov: 05/11/17 Acetaminophen (Tylenol) 650 MG PO Q4HP PRN fever or mild pain #60 TAB Ref 1 Prov: 05/11/17 Discontinued Scripts Sitagliptin Phosphate (Januvia) 50 MG PO DAILY #30 Prov: 02/25/11 DC: 05/11/17 0807 Reported Medications Cyanocobalamin (Vitamin B12) 250 MCG PO DAILY Pyridoxine Hcl (Vitamin B6) 50 MG PO DAILY Multiple Vitamin (Multivitamin) 1 TAB PO DAILY Calcium Carbonate (Tums) 500 MG PO PRN Simvastatin (Simvastatin 40MG Tab) 40 MG PO QHS Potassium Chloride (K-Dur) 20 MEQ PO DAILY #90 SAXAGLIPTIN HCL (Onglyza) 5 MG PO DAILY #90 Insulin Glargine (Lantus Insulin Vial) 20 UNITS SC QHS Gabapentin 600 MG PO QHS #45 Discontinued Reported Medications Amitriptyline Hcl (Amitriptyline) 1 TAB PO QHS Furosemide 40 MG PO BID Family history Postive for: unknown. Smoking Hx Tobacco: No Smoker: Never Smoker Type: N/A Packs/day: N/A Are you/the child exposed to second-hand smoke: No Alcohol Alcohol: No Hx of Drug Use Drug Use? No Review of Systems Constitutional No: recent weight loss. Skin No: laceration. Immune/allergy No: anaphalaxis. Eyes No: discharge. ENT No: nose bleed. GI No: hematemeis, hematochezia, melena. (female) No: hematuria. Heme No: petechia. Psychiatric No: anxious. Physical Exam VS/I&O Vital Signs Date Time Temp Pulse Resp B/P Pulse O2 O2 Flow FiO2 Ox Delivery Rate 05/12 181 88 05/12 1811 97.7 88 24 111/62 05/12 1811 90 OXYGEN 05/12 1752 97.7 88 24 111/62 90 4 05/12 1653 88 24 98/42 90 4 05/12 1606 82 24 90 05/12 1500 82 20 110/50 92 4 05/12 1356 97.7 80 26 108/45 97 4 Exam General appearance no acute distress Respiratory no distress Cardiovascular regular rate and rhythm Abdomen soft Plan Plan: Impression: Gastrointestinal ileus with concomitant severe gastric distention Hypoxia - likely exacerbated by gastric distention Plan: NPO NG PPI Flat and upright in AM at 1926
[2017-05-12 19:30] VITALS: BP 123/60
[2017-05-12 20:14] VITALS: BP 123/60
--- NOTE | 2017-05-12 21:46 | RADIOLOGY REPORT PS360 ---
KUB (SINGLE VIEW) HISTORY: Evaluate NG tube ileus / NG (difficulty placing) ORDERING PHYSICIAN: Daniel Mata MD PATIENT AGE: 77 years COMPARISON: None FINDINGS: NG tube tip is in region of the body the stomach. Dilated gas-filled loops of small and large bowel are present consistent with ileus. Stomach appears decompressed compared to the recent abdomen CT. 4 mm stone is present over the left mid abdominal region consistent with left nephrolithiasis. IMPRESSION:. 1. NG tube in region of the stomach. 2. Ileus 3. Left nephrolithiasis
[2017-05-13 04:00] VITALS: BP 129/70
[2017-05-13 07:10] LABS: HEMOGLOBIN 10.2 g/dL (12.2-16.2); LYMPH # 0.8 K/mm3 (0.7-4.5)
--- NOTE | 2017-05-13 07:16 | SURGEON PROGRESS NOTE ---
Subjective data Subjective data: No new complaints. NG in place. Objective data Vitals,I&O,and Labs: Vital signs, intake and output,and available lab data for the last 24 hours is as noted below. Vital Signs Date Time Temp Pulse Resp B/P Pulse O2 O2 Flow FiO2 Ox Delivery Rate 05/13 0607 4 05/13 0544 4 05/13 0400 4 05/13 0400 97.5 90 28 129/70 90 OXYGEN 4 05/13 0334 4 05/13 0200 4 05/13 0100 4 05/13 0000 4 05/12 2300 4 05/12 2200 4 05/12 2130 4 05/12 2014 4 05/12 2014 97.5 85 26 123/60 91 OXYGEN 4 05/12 1930 4 05/12 1930 97.5 85 26 123/60 91 4 05/12 1811 88 05/12 1811 97.7 88 24 111/62 05/12 1811 90 OXYGEN 05/12 1752 97.7 88 24 111/62 90 4 05/12 1653 88 24 98/42 90 4 05/12 1606 82 24 90 05/12 1500 82 20 110/50 92 4 05/12 1356 97.7 80 26 108/45 97 4 05/12 1500 05/12 2300 05/13 0700 Intake Total 0 Output Total 900 1800 Balance -900 -1800 Intake, Tube 0 Irrigant Output, Other 900 Output, Urine 1800 Patient 88.452 kg Weight Laboratory Tests Test Result Date Time Chemistry Sodium (mmoL/L) 143 05/12 141 Potassium (mmoL/L) 4.7 05/12 141 Chloride (mmoL/L) 107 05/12 1412 Carbon Dioxide (mmoL/L) 28 05/12 1412 BUN (mg/dL) 35 05/12 1412 Creatinine (mg/dL) 1.3 05/12 141 Estimated Creat Clear (ML/MIN) 50 05/12 141 Estimated GFR (MDRD) (ML/MIN) 40 05/12 141 Glucose (mg/dL) 225 05/12 141 POC Glucose (mg/dl) 256 05/13 0635 Lactic Acid (mmol/L) 2.0 05/12 144 Calcium (mg/dL) 9.1 05/12 141 Total Bilirubin (mg/dL) 0.4 05/12 141 AST (U/L) 16 05/12 1412 ALT (U/L) 21 05/12 1412 Alkaline Phosphatase (U/L) 52 05/12 1412 Creatine Kinase (U/L) 59 05/12 1412 CK-MB (CK-2) Rel Index (U/L) 2.4 05/12 1412 CK and CKMB Interp (ng/mL) 1.4 05/12 1412 Troponin I (ng/mL) < 0.02 05/12 1412 Total Protein (gm/dL) 6.6 05/12 1412 Albumin (gm/dL) 2.5 05/12 1412 Globulin (gm/dL) 4.1 05/12 1412 Albumin/Globulin Ratio 0.6 05/12 1412 Coagulation D-Dimer (ng/mL) 4560 05/12 1412 Hematology WBC (K/MM3) 11.9 05/12 1412 RBC (M/mm3) 3.88 05/12 1412 Hgb (g/dL) 11.3 05/12 1412 Hct (%) 36.4 05/12 1412 MCV (fl) 93.7 05/12 1412 RDW (%) 13.1 05/12 1412 Plt Count (K/mm3) 423 05/12 1412 MPV (fl) 8.1 05/12 1412 Gran % (%) 82.3 05/12 1412 Gran # (K/mm3) 9.8 05/12 1412 Lymphocytes % (%) 10.1 05/12 1412 Monocytes % (%) 6.8 05/12 1412 Eosinophils % (%) 0.2 05/12 1412 Basophils % (%) 0.6 05/12 1412 Lymphocytes # (K/mm3) 1.2 05/12 1412 Monocytes # (K/mm3) 0.8 05/12 1412 Eosinophils # (K/mm3) 0.0 05/12 1412 Basophils # (K/MM3) 0.1 05/12 1412 PUBS MCHC (g/dl) 31.1 05/12 1412 Immunology MCH (pg) 29.2 05/12 1412 Urines Urine Color YELLOW 05/12 1412 Urine Appearance CLEAR 05/12 1412 Urine pH 6.0 05/12 1412 Ur Specific [place] >= 1.030 05/12 1412 Urine Protein (mg/dL) 1+ 05/12 Urine Ketones (mg/dL) NEGATIVE 05/12 1412 Urine Blood 1+ 05/12 1412 Urine Nitrate NEGATIVE 05/12 1412 Urine Bilirubin NEGATIVE 05/12 1412 Urine Urobilinogen (E.U./dL) 0.2 05/12 141 Ur Leukocyte Esterase TRACE 05/12 1412 Urine RBC (rbc/hpf) 5-10 05/12 141 Urine WBC (wbc/hpf) 5-10 05/12 141 Ur Squamous Epith Cells (#/hpf) 3-5 05/12 141 Urine Bacteria 3+ 05/12 141 Hyaline Casts (#/lpf) 5-10 05/12 141 Fine Granular Casts (#/lpf) OCC 05/12 1412 Urine Glucose NEGATIVE 05/12 1412 Assessment findings Assessment Exam General appearance: no acute distress Cardiovascular: regular rate & rhythm Respiratory: no respiratory distress ABD: soft Patient plan Diagnoses: post-op ileus - NG in place Plan: f/u AM films, continue NG for now at 0715
--- NOTE | 2017-05-13 07:26 | PHARMACY CLINIC NOTE ---
Patient Demographics Patient Demographics Admission date: 05/12/17 Date: 05/13/17 Time: 0725 Allergies Coded Allergies: Penicillins (05/06/17) TOMATOES (FOOD) (From TOMATOES (FOOD/DRUG)) (UNKNOWN 05/06/17) egg (makes me break out 05/06/17) morphine ("MAKES HER CRAZY" 05/06/17) tomato (05/06/17) HEIGHT- FT: 5 IN: 7.00 K.452 VTE General Information Labs: Laboratory Tests 05/13 05/12 0636 1412 Hematology Hgb (12.2 - 16.2 g/dL) 10.2 L 11.3 L Hct (37.0 - 47.0 %) 32.1 L 36.4 L Plt Count (142 - 424 K/mm3) 313 423 Disclaimer The following section includes nursing documentation that has been pulled in for pharmacy review. Patient's VTE score: 5 Patient's VTE Risk: LOW RISK Clinical trial participant? No VTE prophylaxis [id number] VTE prophylaxis ordered? Yes Type of prophylaxis/treatment: OSBALDO at 0725
--- NOTE | 2017-05-13 07:50 | RADIOLOGY REPORT PS360 ---
ABDOMEN-FLAT UPRIGHT HISTORY: Abdominal distention, ileus ileus ORDERING PHYSICIAN: Daniel Mata MD PATIENT AGE: 77 years COMPARISON: 05/12/2017 FINDINGS: Gas-filled loops of large and small bowel are once again noted overall not significantly changed. There is a nasogastric tube present. The tube is curled in the stomach. The tip is in the region of the body of the stomach. IMPRESSION: Overall no change in the ileus with NG tube in place
[2017-05-13 08:00] VITALS: BP 116/70
--- NOTE | 2017-05-13 08:18 | HISTORY AND PHYSICAL REPORT ---
Demographics: Admit date: 05/12/17 Chief complaint: Lethargy/abdominal pain PRIMARY DIAGNOSIS: ileus Allergies: Coded Allergies: Penicillins (05/06/17) TOMATOES (FOOD) (From TOMATOES (FOOD/DRUG)) (UNKNOWN 05/06/17) egg (makes me break out 05/06/17) morphine ("MAKES HER CRAZY" 05/06/17) tomato (05/06/17) History of present illness: History of present illness: 77-year-old white female with diabetes, diastolic heart failure and recent right -sided hip fracture that was repaired here at [facility] she was discharged to the [facility] 2 days ago. Over the next day or so she felt worse, and the morning of readmission was found to be grade, short of air, and feeling poorly. She was transferred back to the emergency department here at [facility] for evaluation, and high suspicion of PE. Workup in the ER was very thorough, included lab testing, CT scan for PE which was negative, but she was found to have an ileus on roentgenographic testing. NG tube was placed and she was admitted to hospital for surgical consultation. Surgical note has been reviewed and appreciated. This morning the patient has no complaints she maintains that "the Lord will heal me soon." Past medical history: Family HX Diabetes Yes CAD Yes Hypertension Yes Hyperlipidemia No Cancer Yes TB Yes Immunization HX DT/Tetanus UNKNOWN Flu [id number] Pneumonia Received In Past TB Test in last year No General Angina: Yes [place]: Yes Hypertension? Yes Hyperlipidemia? Yes CHF? Yes COPD? No Asthma? No Hernia? Yes CVA? No Seizures? No Diabetes? Yes Insulin Dependent: Yes Insulin Pump: No Home FSBS? Yes UTI? Yes Stones? Yes GB Disease: Yes Hepatitis? No Cataracts? No Glaucoma? No MRSA? No TB? No Cancer? 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 VEIN STRIPPING-LEGS RT OVARIAN TUMOR REMOVED (11 POUNDS) GALL STONES REMOVED lt hip surgery Current home meds: Active Scripts METFORMIN HCL (Metformin 1000MG) 1,000 MG PO BID #60 Prov: 02/25/11 Irbesartan (Avapro) 150 MG PO DAILY #30 Prov: 02/25/11 HYDROCODONE/ACETAMINOPHEN (Hydrocodon-Acetaminophen 5-325) 1-2 TAB PO Q4HP PRN MODERATE TO SEVERE PAIN #24 TAB Prov: 05/11/17 Clindamycin Hcl (Clindamycin 300MG) 300 MG PO TID #15 CAP Prov: 05/11/17 Acetaminophen (Tylenol) 650 MG PO Q4HP PRN fever or mild pain #60 TAB Ref 1 Prov: 05/11/17 Discontinued Scripts Sitagliptin Phosphate (Januvia) 50 MG PO DAILY #30 Prov: 02/25/11 DC: 05/11/17 0807 Reported Medications Cyanocobalamin (Vitamin B12) 250 MCG PO DAILY Pyridoxine Hcl (Vitamin B6) 50 MG PO DAILY Multiple Vitamin (Multivitamin) 1 TAB PO DAILY Calcium Carbonate (Tums) 500 MG PO PRN Simvastatin (Simvastatin 40MG Tab) 40 MG PO QHS Potassium Chloride (K-Dur) 20 MEQ PO DAILY #90 SAXAGLIPTIN HCL (Onglyza) 5 MG PO DAILY #90 Insulin Glargine (Lantus Insulin Vial) 20 UNITS SC QHS Gabapentin 600 MG PO QHS #45 Discontinued Reported Medications Amitriptyline Hcl (Amitriptyline) 1 TAB PO QHS Furosemide 40 MG PO BID Social Hx: Smoking HX Tobacco No Type N/A Packs/day N/A Are you/the child exposed to second-hand smoke: No Alcohol Alcohol: No Hx of Drug Use Drug Use? No Patien't marital status is single Patient's support system is poor Review of systems: Constitutional malaise, weakness. No: fever. Respiratory shortness of breath. Cardiovascular No no symptoms reported Gastrointestinal/Abdominal abdomen distended, abdominal pain Genitourinary No: no symptoms reported. Musculoskeletal No: no symptoms reported. Neurological No: tremors, weakness, parasthesia. Exam: Lab data for last 24 hours: Laboratory Tests 05/13/17 0636: Sodium 141, Potassium 4.6, Chloride 108 H, Carbon Dioxide 28, BUN 30 H, Creatinine 0.9, Estimated Creat Clear 72, Estimated GFR (MDRD) 61, Glucose 265 H, Calcium 9.1, WBC 10.6, RBC 3.39 L, Hgb 10.2 L, Hct 32.1 L, MCV 94.6, RDW 13.2, Plt Count 313, MPV 7.6, Gran % 86.0 H, Gran # 9.2 H, Lymphocytes % 7.0 L, Monocytes % 5.8, Eosinophils % 0.9, Basophils % 0.4, Lymphocytes # 0.8, Monocytes # 0.6, Eosinophils # 0.1, Basophils # 0.0, PUBS MCHC 31.6 L, MCH 29.9 05/13/17 0635: POC Glucose 256 H 05/12/17 2135: POC Glucose 178 H 05/12/17 1440: Lactic Acid 2.0 05/12/17 1412: Sodium 143, Potassium 4.7, Chloride 107, Carbon Dioxide 28, BUN 35 H, Creatinine 1.3 H, Estimated Creat Clear 50, Estimated GFR (MDRD) 40 L, Glucose 225 H, Calcium 9.1, Total Bilirubin 0.4, AST 16, ALT 21, Alkaline Phosphatase 52, Creatine Kinase 59, CK-MB (CK-2) Rel Index 2.4, CK and CKMB Interp 1.4, Troponin I < 0.02, Total Protein 6.6, Albumin 2.5 L, Globulin 4.1 H, Albumin/ Globulin Ratio 0.6 L, D-Dimer 4560 *H, WBC 11.9 H, RBC 3.88 L, Hgb 11.3 L, Hct 36.4 L, MCV 93.7, RDW 13.1, Plt Count 423, MPV 8.1, Gran % 82.3 H, Gran # 9.8 H, Lymphocytes % 10.1, Monocytes % 6.8, Eosinophils % 0.2, Basophils % 0.6, Lymphocytes # 1.2, Monocytes # 0.8, Eosinophils # 0.0, Basophils # 0.1, PUBS MCHC 31.1 L, MCH 29.2, Urine Color YELLOW, Urine Appearance CLEAR, Urine pH 6.0 , Ur Specific [place] >= 1.030, Urine Protein 1+ H, Urine Ketones NEGATIVE, Urine Blood 1+ H, Urine Nitrate NEGATIVE, Urine Bilirubin NEGATIVE, Urine Urobilinogen 0.2, Ur Leukocyte Esterase TRACE H, Urine RBC 5-10, Urine WBC 5-10 , Ur Squamous Epith Cells 3-5, Urine Bacteria 3+, Hyaline Casts 5-10, Fine Granular Casts OCC, Urine Glucose NEGATIVE Microbiology 05/12 144 BLOOD: Anaerobic Blood Culture - RECD 05/12 144 BLOOD: Aerobic Blood Culture - RECD 05/12 1412 URINE CC: Urine Culture - RES 05/12 135 BLOOD: Anaerobic Blood Culture - ORD 05/12 135 BLOOD: Aerobic Blood Culture - ORD Admission vital signs: 1ST Vital Signs Result Date Time Pulse Ox 97 05/12 1356 B/P 108/45 05/12 1356 O2 Flow Rate 4 05/12 135 Temp 97.7 05/12 135 Pulse 80 05/12 135 Resp 26 05/12 135 O2 Delivery OXYGEN 05/12 1811 Additional information: Patient is awake, alert, oriented 3. ENT exam reveals NG tube in the LEFT nostril draining gastric juice. Lungs have good air movement, abdomen is soft but distended. No bowel sounds. Heart rate regular. Extremities are warm, well- perfused, able to wiggle her toes. Plan: Problem List 1. Ileus Plan: Supportive care, agree with conservative management plan. at 0817
[2017-05-13 10:21] VITALS: BP 116/70
[2017-05-13 10:34] LABS: NEUTROPHILS 85 % (42-76)
[2017-05-13 16:00] VITALS: BP 127/76
[2017-05-13 19:48] VITALS: BP 140/76
[2017-05-14 04:39] VITALS: BP 119/67
--- NOTE | 2017-05-14 07:15 | ACUTE CARE PROGRESS NOTE (QUA) ---
Progress Notes Subjective Date 05/14/17 Time 0713 Note Patient complains of some nasal irritation this morning from the NG tube that was present. She did well with sips of water and coffee. She denies nausea. Patient tells me she has had bowel movements. She appears comfortable in bed. Nasal cannula is in place. Oropharynx is moist. Lungs are clear. Heart has a regular rate and rhythm. Abdomen is obese and soft. Bowel sounds are hypoactive. Abdomen is nontender Plan will be to cautiously advance diet. Objective Findings Last VS-Temp:97.5 B/P:119/67 Pulse:90 Resp:20 SaO2:96 OXYGEN Last weight lbs:195 oz:0 [id number].452 Method:Bed Scales Laboratory Tests 05/14/17 0625: POC Glucose 228 H 05/13/17 2127: POC Glucose 246 H 05/13/17 1647: POC Glucose 213 H 05/13/17 1237: POC Glucose 229 H Assessment/Plan Problem List 1. Ileus Patient condition Stable This inpt stay is expected to cross 2 MNs from start of care Yes at 0714
[2017-05-14 08:23] VITALS: BP 118/61
--- NOTE | 2017-05-14 09:26 | SURGEON PROGRESS NOTE ---
Subjective data Subjective data: The patient states that she "feels bad", but states that her "belly in OK". Her answers are not particularly clear. Objective data Vitals,I&O,and Labs: Vital signs, intake and output,and available lab data for the last 24 hours is as noted below. Vital Signs Date Time Temp Pulse Resp B/P Pulse O2 O2 Flow FiO2 Ox Delivery Rate 05/14 08 98.4 80 22 118/61 91 ROOM AIR 05/14 0648 4 05/14 0605 4 05/14 0459 4 05/14 0439 4 05/14 0439 97.5 90 20 119/67 96 OXYGEN 4 05/14 0307 4 05/14 0153 4 05/14 0114 4 05/14 0004 4 05/13 2310 4 05/13 2219 4 05/13 214 97.8 89 20 140/76 98 4 05/13 2142 4 05/13 1948 4 05/13 1948 97.8 89 20 140/76 98 OXYGEN 4 05/13 1837 4 05/13 1700 4 05/13 1600 98.2 84 16 127/76 89 OXYGEN 05/13 1500 4 05/13 1300 4 05/13 1100 4 05/13 1021 98.5 84 22 116/70 94 4 05/13 1500 05/13 2300 05/14 0700 Intake Total 2654 1209 Output Total 1100 600 Balance 1554 609 Intake, IV 2654 1209 Output, Urine 1100 600 Patient 88.452 kg Weight Laboratory Tests Test Result Date Time Chemistry Sodium (mmoL/L) 141 05/13 06 Potassium (mmoL/L) 4.6 05/13 06 Chloride (mmoL/L) 108 05/13 0636 Carbon Dioxide (mmoL/L) 28 05/13 06 BUN (mg/dL) 30 05/13 06 Creatinine (mg/dL) 0.9 05/13 636 Estimated Creat Clear (ML/MIN) 72 05/13 06 Estimated GFR (MDRD) (ML/MIN) 61 05/13 06 Glucose (mg/dL) 265 05/13 636 POC Glucose (mg/dl) 228 05/14 0625 Lactic Acid (mmol/L) 2.0 05/12 1440 Calcium (mg/dL) 9.1 05/13 636 Total Bilirubin (mg/dL) 0.4 05/12 1412 AST (U/L) 16 05/12 1412 ALT (U/L) 21 05/12 1412 Alkaline Phosphatase (U/L) 52 05/12 1412 Creatine Kinase (U/L) 59 05/12 1412 CK-MB (CK-2) Rel Index (U/L) 2.4 05/12 1412 CK and CKMB Interp (ng/mL) 1.4 05/12 1412 Troponin I (ng/mL) < 0.02 05/12 1412 Total Protein (gm/dL) 6.6 05/12 1412 Albumin (gm/dL) 2.5 05/12 1412 Globulin (gm/dL) 4.1 05/12 1412 Albumin/Globulin Ratio 0.6 05/12 1412 Coagulation D-Dimer (ng/mL) 4560 05/12 1412 Hematology WBC (K/MM3) 10.6 05/13 636 RBC (M/mm3) 3.39 05/13 636 Hgb (g/dL) 10.2 05/13 636 Hct (%) 32.1 05/13 636 MCV (fl) 94.6 05/13 636 RDW (%) 13.2 05/13 636 Plt Count (K/mm3) 313 05/13 636 MPV (fl) 7.6 05/13 636 Gran % (%) 86.0 05/13 636 Gran # (K/mm3) 9.2 05/13 636 Total Counted (#CELLS) 100 05/13 636 Lymphocytes % (%) 7.0 05/13 636 Monocytes % (%) 5.8 05/13 636 Eosinophils % (%) 0.9 05/13 636 Basophils % (%) 0.4 05/13 636 Neutrophils (%) 85 05/13 636 Lymphocytes (Manual) (%) 11 05/13 636 Lymphocytes # (K/mm3) 0.8 05/13 636 Monocytes (Manual) (%) 2 05/13 636 Monocytes # (K/mm3) 0.6 05/13 636 Eosinophils # (K/mm3) 0.1 05/13 636 Basophils # (K/MM3) 0.0 05/13 636 Differential Comment PLT CLUMPS PRESENT 05/13 636 RBC/WBC/PLT Morphology NORMAL 05/13 636 Atypical Lymphocytes (%) 2 05/13 636 Platelet Estimate SLIGHT INCREASE 05/13 636 PUBS MCHC (g/dl) 31.6 05/13 636 Immunology MCH (pg) 29.9 05/13 636 Urines Urine Color YELLOW 05/12 1412 Urine Appearance CLEAR 05/12 1412 Urine pH 6.0 05/12 1412 Ur Specific [place] >= 1.030 05/12 1412 Urine Protein (mg/dL) 1+ 05/12 1412 Urine Ketones (mg/dL) NEGATIVE 05/12 1412 Urine Blood 1+ 05/12 1412 Urine Nitrate NEGATIVE 05/12 1412 Urine Bilirubin NEGATIVE 05/12 1412 Urine Urobilinogen (E.U./dL) 0.2 05/12 1412 Ur Leukocyte Esterase TRACE 05/12 1412 Urine RBC (rbc/hpf) 5-10 05/12 1412 Urine WBC (wbc/hpf) 5-10 05/12 1412 Ur Squamous Epith Cells (#/hpf) 3-5 05/12 1412 Urine Bacteria 3+ 05/12 1412 Hyaline Casts (#/lpf) 5-10 05/12 1412 Fine Granular Casts (#/lpf) OCC 05/12 1412 Urine Glucose NEGATIVE 05/12 1412 Additional data: No emesis. One bowel movement in the last 24 hours. Nasogastric tube was removed by the patient "on multiple occasions" despite soft restraints. Assessment findings Assessment Exam General appearance: no acute distress Respiratory: no respiratory distress ABD: soft, distended Patient plan Diagnoses: post-op ileus - she remains fairly distended. She has had a bowel movement and has not had any episodes of emesis during last 24 hours. She has removed her nasogastric tube on multiple occasions. Plan: flat and upright in AM Additional data: The patient's ileus has certainly not resolved, but has shown some improvement over the last 24 hours. She has been advanced to a clear liquid diet. Very cautious observation/management warranted. Bowel regimen. at 0925
--- NOTE | 2017-05-14 12:45 | RADIOLOGY REPORT PS360 ---
ABDOMEN-FLAT UPRIGHT COMPARISON: KUB and upright abdomen 05/11/2017 HISTORY: Follow-up abdominal distention and suspected ileus TECHNIQUE: KUB and upright abdomen FINDINGS: Multiple mildly dilated loops of large and small bowel are again noted the NG tube has been removed. There is some minimal scattered stool in the descending colon. The bipolar hip prosthesis left side is again noted. There is no evidence of free air. The left lower chest is included on image and appears be left perihilar atelectasis and possibly a left lower lobe pneumonic infiltrate but not adequately evaluated on this sequence of images. IMPRESSION: Findings consistent with persistent ileus possibly postsurgical in nature now with possible left lower lobe pneumonia and/or atelectasis and suggest patient have a follow-up formal chest or PA and lateral chest if the patient can come to the department
[2017-05-14 16:28] VITALS: BP 116/45
[2017-05-14 20:22] VITALS: BP 122/66
[2017-05-15 05:39] VITALS: BP 127/69
--- NOTE | 2017-05-15 06:54 | SURGEON PROGRESS NOTE ---
Subjective data Subjective data: She states that she "feels pretty bad". She reports "bowel movements" yesterday (2 large per NSG). Objective data Vitals,I&O,and Labs: Vital signs, intake and output,and available lab data for the last 24 hours is as noted below. Vital Signs Date Time Temp Pulse Resp B/P Pulse O2 O2 Flow FiO2 Ox Delivery Rate 05/15 0645 4 05/15 0633 4 05/15 0539 4 05/15 0539 97.6 84 20 127/69 96 OXYGEN 4 05/15 0521 4 05/15 0306 4 05/15 0305 4 05/15 0130 4 05/15 0101 4 05/14 2320 4 05/14 2223 98.1 94 18 122/66 90 4 05/14 2200 4 05/14 2100 4 05/14 202 4 05/14 2022 98.1 94 18 122/66 90 OXYGEN 4 05/14 1904 4 05/14 1827 4 05/14 1658 4 05/14 1628 98.5 87 22 116/45 97 OXYGEN 4 05/14 1600 4 05/14 1541 4 05/14 1357 4 05/14 1035 4 05/14 0905 98.4 80 22 118/61 91 4 05/14 0902 4 05/14 0823 98.4 80 22 118/61 91 ROOM AIR 05/14 1500 05/14 2300 05/15 0700 Intake Total 210 002 4663 Output Total 400 400 Balance 403 481 7904 Intake, IV 679 1735 Intake, Oral 600 Output, Stool Output, Urine 400 400 Laboratory Tests Test Result Date Time Chemistry Sodium (mmoL/L) 141 05/13 636 Potassium (mmoL/L) 4.6 05/13 636 Chloride (mmoL/L) 108 05/13 06 Carbon Dioxide (mmoL/L) 28 05/13 636 BUN (mg/dL) 30 05/13 06 Creatinine (mg/dL) 0.9 05/13 636 Estimated Creat Clear (ML/MIN) 72 05/13 636 Estimated GFR (MDRD) (ML/MIN) 61 05/13 636 Glucose (mg/dL) 265 05/13 636 POC Glucose (mg/dl) 199 05/15 0601 Lactic Acid (mmol/L) 2.0 05/12 1440 Calcium (mg/dL) 9.1 05/13 636 Total Bilirubin (mg/dL) 0.4 05/12 1412 AST (U/L) 16 05/12 1412 ALT (U/L) 21 05/12 1412 Alkaline Phosphatase (U/L) 52 05/12 1412 Creatine Kinase (U/L) 59 05/12 1412 CK-MB (CK-2) Rel Index (U/L) 2.4 05/12 1412 CK and CKMB Interp (ng/mL) 1.4 05/12 1412 Troponin I (ng/mL) < 0.02 05/12 1412 Total Protein (gm/dL) 6.6 05/12 1412 Albumin (gm/dL) 2.5 05/12 1412 Globulin (gm/dL) 4.1 05/12 1412 Albumin/Globulin Ratio 0.6 05/12 1412 Coagulation D-Dimer (ng/mL) 4560 05/12 1412 Hematology WBC (K/MM3) 10.6 05/13 636 RBC (M/mm3) 3.39 05/13 636 Hgb (g/dL) 10.2 05/13 636 Hct (%) 32.1 05/13 636 MCV (fl) 94.6 05/13 636 RDW (%) 13.2 05/13 636 Plt Count (K/mm3) 313 05/13 636 MPV (fl) 7.6 05/13 636 Gran % (%) 86.0 05/13 636 Gran # (K/mm3) 9.2 05/13 636 Total Counted (#CELLS) 100 05/13 636 Lymphocytes % (%) 7.0 05/13 636 Monocytes % (%) 5.8 05/13 636 Eosinophils % (%) 0.9 05/13 636 Basophils % (%) 0.4 05/13 636 Neutrophils (%) 85 05/13 636 Lymphocytes (Manual) (%) 11 05/13 636 Lymphocytes # (K/mm3) 0.8 05/13 636 Monocytes (Manual) (%) 2 05/13 636 Monocytes # (K/mm3) 0.6 05/13 636 Eosinophils # (K/mm3) 0.1 05/13 636 Basophils # (K/MM3) 0.0 05/13 636 Differential Comment PLT CLUMPS PRESENT 05/13 636 RBC/WBC/PLT Morphology NORMAL 05/13 636 Atypical Lymphocytes (%) 2 05/13 636 Platelet Estimate SLIGHT INCREASE 05/13 636 PUBS MCHC (g/dl) 31.6 05/13 636 Immunology MCH (pg) 29.9 05/13 636 Urines Urine Color YELLOW 05/12 1412 Urine Appearance CLEAR 05/12 1412 Urine pH 6.0 05/12 1412 Ur Specific [place] >= 1.030 05/12 1412 Urine Protein (mg/dL) 1+ 05/12 1412 Urine Ketones (mg/dL) NEGATIVE 05/12 1412 Urine Blood 1+ 05/12 1412 Urine Nitrate NEGATIVE 05/12 1412 Urine Bilirubin NEGATIVE 05/12 1412 Urine Urobilinogen (E.U./dL) 0.2 05/12 1412 Ur Leukocyte Esterase TRACE 05/12 1412 Urine RBC (rbc/hpf) 5-10 05/12 1412 Urine WBC (wbc/hpf) 5-10 05/12 1412 Ur Squamous Epith Cells (#/hpf) 3-5 05/12 1412 Urine Bacteria 3+ 05/12 1412 Hyaline Casts (#/lpf) 5-10 05/12 1412 Fine Granular Casts (#/lpf) OCC 05/12 1412 Urine Glucose NEGATIVE 05/12 1412 Additional data: Flat and upright from yesterday reveals no significant change in dilated small bowel loops Assessment findings Assessment Exam General appearance: no acute distress Cardiovascular: regular rate & rhythm Respiratory: no respiratory distress ABD: soft (somewhat distended) Patient plan Diagnoses: post-op ileus - at least 2 bowel movements yesterday... No definitive radiographic change Plan: follow-up morning films, ? replace NG if needed Additional data: Continue cautious management and await return of bowel function. at 0698
[2017-05-15 08:00] VITALS: BP 114/62
--- NOTE | 2017-05-15 13:15 | RADIOLOGY REPORT PS360 ---
ABDOMEN-FLAT UPRIGHT COMPARISON: Abdominal series 05/14/2017 and 05/11/2017 HISTORY: Follow-up suspected ileus TECHNIQUE: Portable KUB and upright abdomen FINDINGS: Persistent dilated loops of large and small bowel gas are again noted. There may be some slight less gas in the rectum and lower sigmoid colon and yesterday's films. Again is no free air. The left hip prosthesis is stable. IMPRESSION: Possible slight improvement in the adynamic ileus
[2017-05-15 16:00] VITALS: BP 121/69
[2017-05-15 19:35] VITALS: BP 118/59
[2017-05-15 20:10] VITALS: BP 118/59
[2017-05-16 03:53] VITALS: BP 118/47
[2017-05-16 06:57] LABS: LYMPH # 1.5 K/mm3 (0.7-4.5)
[2017-05-16 07:16] LABS: HEMOGLOBIN 8.5 g/dL (12.2-16.2)
--- NOTE | 2017-05-16 08:07 | ACUTE CARE PROGRESS NOTE (QUA) ---
Progress Notes Subjective Date 05/16/17 Time 0805 Note Patient denies abdominal pain. Her last bowel movement was yesterday evening. She denies flatus. The patient tells me she has some skin breakdown on her sacrum and she has been repositioned. The patient has been getting out of bed and sitting in the chair. She is in no distress. Lungs are clear. Heart has a regular rate and rhythm. Abdomen is soft and nontender. Bowel sounds are present. Ileus is slowly improving. I encouraged the patient sit in the chair more today. Objective Findings Last VS-Temp:98.1 B/P:118/47 Pulse:71 Resp:18 SaO2:99 OXYGEN Last weight lbs:195 oz:6 [id number].621 Method:Bed Scales Laboratory Tests 05/16/17 0619: POC Glucose 165 H 05/16/17 0607: Sodium 139, Potassium 4.3, Chloride 106, Carbon Dioxide 29, BUN 6 L, Creatinine 0.6, Estimated Creat Clear 108, Estimated GFR (MDRD) 97, Glucose 167 H, Calcium 8.0 L, WBC 8.9, RBC 2.83 L, Hgb 8.5 L, Hct 26.7 L, MCV 94.5, RDW 14.8, Plt Count 192, MPV 7.6, Gran % 73.4, Gran # 6.5, Lymphocytes % 17.0, Monocytes % 5.9 , Eosinophils % 3.0, Basophils % 0.8, Lymphocytes # 1.5, Monocytes # 0.5, Eosinophils # 0.3, Basophils # 0.1, PUBS MCHC 31.6 L, MCH 29.9 05/15/17 1642: POC Glucose 259 H 05/15/17 1143: POC Glucose 239 H Reviewed: medications, vital signs, lab results Assessment/Plan Problem List 1. Ileus 2. Anemia Patient condition Stable Plan: continue current care, order additional tests (complete blood count in a.m.) This inpt stay is expected to cross 2 MNs from start of care Yes at 0806
[2017-05-16 08:22] VITALS: BP 101/54
--- NOTE | 2017-05-16 08:43 | SURGEON PROGRESS NOTE ---
Subjective data Subjective data: DANIEL MENDEZ is a 77 F .Patient denies complaint of nausea and vomitting.She reports her last pain level as 0 on a 0-10 pain scale. Patient without significant complaints. Tolerating clear liquids without pain or nausea. Assessment findings Assessment Exam General appearance: normal appearance, alert ABD: normal bowel sounds, soft Patient plan Plan: IV fluids Additional data: Continue IV fluids and limited diet for now. If continues to improve may advance to full liquids. at 0842
[2017-05-16 16:17] VITALS: BP 103/48
[2017-05-16 20:00] VITALS: BP 122/69
[2017-05-16 21:30] VITALS: BP 122/69
[2017-05-17 04:00] VITALS: BP 115/59
[2017-05-17 06:52] LABS: HEMOGLOBIN 8.5 g/dL (12.2-16.2); LYMPH # 1.3 K/mm3 (0.7-4.5); LYMPH % 14.8 % (10-50.0)
--- NOTE | 2017-05-17 07:15 | ACUTE CARE PROGRESS NOTE (QUA) ---
Progress Notes Subjective Date 05/17/17 Time 0712 Note Patient complains of pain in the RIGHT leg where she had her hip fracture. She denies abdominal pain. Patient had multiple watery bowel movements yesterday. She denies nausea or vomiting. Vital signs reviewed. Lungs are clear. Heart has a regular rate and rhythm. Abdomen is soft and nontender with active bowel sounds. Advance diet to full liquids. Start a probiotic Objective Findings Last VS-Temp:98.2 B/P:115/59 Pulse:86 Resp:20 SaO2:98 OXYGEN Last weight lbs:198 oz:4 K.925 Method:Bed Scales Laboratory Tests 05/17/17 0615: WBC 8.4, RBC 2.78 L, Hgb 8.5 L, Hct 26.2 L, MCV 94.2, RDW 14.9, Plt Count 172 , MPV 7.7, Gran % 77.2, Gran # 6.5, Lymphocytes % 14.8, Monocytes % 5.3, Eosinophils % 2.1, Basophils % 0.6, Lymphocytes # 1.3, Monocytes # 0.5, Eosinophils # 0.2, Basophils # 0.1, PUBS MCHC 32.4, MCH 30.5 05/16/17 2105: POC Glucose 226 H 05/16/17 1619: POC Glucose 418 *H 05/16/17 1154: POC Glucose 305 *H Assessment/Plan Problem List 1. Ileus 2. Anemia Patient condition Stable Plan: continue current care, advance diet This inpt stay is expected to cross 2 MNs from start of care Yes at 0714
[2017-05-17 07:55] VITALS: BP 115/59
[2017-05-17 08:18] VITALS: BP 100/50
--- NOTE | 2017-05-17 08:25 | SURGEON PROGRESS NOTE ---
Subjective data Subjective data: DANIEL MENDEZ is a 77 F .Patient denies complaint of nausea and vomitting.She reports her last pain level as 0 on a 0-10 pain scale. Patient has no complaints of abdominal issues. Has tolerated clear liquids without any problems and has had multiple bowel movements. Assessment findings Assessment Exam General appearance: normal appearance ABD: distended Comment: Her abdomen is somewhat distended but nontender. Patient plan Plan: Advance diet Additional data: Advanced to full liquids today. at 0824
--- NOTE | 2017-05-17 08:25 | SURGEON PROGRESS NOTE ---
Subjective data Subjective data: DANIEL MEDNEZ is a 77 F .Patient denies complaint of nausea and vomitting.She reports her last pain level as 0 on a 0-10 pain scale. Patient has no complaints of abdominal issues. Has tolerated clear liquids without any problems and has had multiple bowel movements. Assessment findings Assessment Exam General appearance: normal appearance ABD: distended Comment: Her abdomen is somewhat distended but nontender. Patient plan Plan: Advance diet Additional data: Advanced to full liquids today. at 0824
[2017-05-17 16:09] VITALS: BP 108/47
[2017-05-17 20:00] VITALS: BP 119/48
[2017-05-18 04:00] VITALS: BP 113/62
[2017-05-18 07:22] LABS: HEMOGLOBIN 8.9 g/dL (12.2-16.2); LYMPH # 1.5 K/mm3 (0.7-4.5); LYMPH % 18.9 % (10-50.0)
--- NOTE | 2017-05-18 07:48 | SURGEON PROGRESS NOTE ---
Subjective data Subjective data: DANIEL MENDEZ is a 77 F .Patient denies complaint of nausea and vomitting.She reports her last pain level as 0 on a 0-10 pain scale. Patient states "I'm hungry". Assessment findings Assessment Exam General appearance: normal appearance, alert ABD: no tenderness, distended Patient plan Plan: Advance diet at 0747
[2017-05-18 08:00] VITALS: BP 122/71
--- NOTE | 2017-05-18 08:23 | ACUTE CARE PROGRESS NOTE (QUA) ---
Progress Notes Subjective Date 05/18/17 Time 0822 Note Overall patient is better. She is scared about going back to [place] but is eating well. Lungs are clear, heart rate regular, abdomen soft, no edema noted. Patient is urinating well without catheter. Objective Findings Last VS-Temp:98.0 B/P:113/62 Pulse:82 Resp:22 SaO2:96 OXYGEN Last weight lbs:206 oz:4 K.553 Method:Bed Scales Assessment/Plan Problem List 1. Ileus 2. Anemia Patient condition Improving Plan: continue current care, patient is improving nicely. Hopefully we'll be able to transfer back to long-term care tomorrow. This inpt stay is expected to cross 2 MNs from start of care Yes at 0823
[2017-05-18 09:43] VITALS: BP 122/71
[2017-05-18 16:00] VITALS: BP 115/57
[2017-05-18 20:50] VITALS: BP 95/39
[2017-05-19 04:24] VITALS: BP 124/60
[2017-05-19 07:17] LABS: HEMOGLOBIN 8.5 g/dL (12.2-16.2); LYMPH # 1.3 K/mm3 (0.7-4.5)
--- NOTE | 2017-05-19 07:43 | DISCHARGE SUMMARY STANDARD ---
Demographics Admit date: 05/12/17 Discharge date: 05/19/17 History of present illness History of present illness 77-year-old white female with diabetes, diastolic heart failure and recent right -sided hip fracture that was repaired here at [facility] she was discharged to the [facility] 2 days ago. Over the next day or so she felt worse, and the morning of readmission was found to be grade, short of air, and feeling poorly. She was transferred back to the emergency department here at [facility] for evaluation, and high suspicion of PE. Workup in the ER was very thorough, included lab testing, CT scan for PE which was negative, but she was found to have an ileus on roentgenographic testing. NG tube was placed and she was admitted to hospital for surgical consultation. Surgical note has been reviewed and appreciated. This morning the patient has no complaints she maintains that "the Lord will heal me soon." Hospital Course Hospital Course: Patient was admitted as noted above. Surgical consultation was appreciated, followed along with patient. Patient was made nothing by mouth with NG tube, this was pulled out by the patient after a couple of days but she had no further vomiting. Diet was slowly advanced from sips to clear liquids to full liquids. Patient did well over the next couple of days. Urine was recultured because of her history of Klebsiella urinary tract infection on her previous admission but was no growth. Her other medications were continued. She improved and this morning is able to eat well, has been resumed her normal activity which is limited with her recent hip fracture. She will be transferred back to her skilled care [facility] to continue physical therapy for her hip fracture. All previous orders will be continued from her previous [facility] admission. Exam this morning shows clear lungs, regular heart rate, soft abdomen. No edema. She is able to move all of her extremities. Suture line on the RIGHT hip looks good. Discharge diagnoses Problem List 1. Ileus 2. Anemia Medications Medications: Discharge meds are as noted. Follow up Follow up in office in: 7 DAYS with: Yun Smith APRN at 0742
--- NOTE | 2017-05-19 07:43 | DISCHARGE SUMMARY STANDARD ---
Demographics Admit date: 05/12/17 Discharge date: 05/19/17 History of present illness History of present illness 77-year-old white female with diabetes, diastolic heart failure and recent right -sided hip fracture that was repaired here at [facility] she was discharged to the [facility] 2 days ago. Over the next day or so she felt worse, and the morning of readmission was found to be grade, short of air, and feeling poorly. She was transferred back to the emergency department here at [facility] for evaluation, and high suspicion of PE. Workup in the ER was very thorough, included lab testing, CT scan for PE which was negative, but she was found to have an ileus on roentgenographic testing. NG tube was placed and she was admitted to hospital for surgical consultation. Surgical note has been reviewed and appreciated. This morning the patient has no complaints she maintains that "the Lord will heal me soon." Hospital Course Hospital Course: Patient was admitted as noted above. Surgical consultation was appreciated, followed along with patient. Patient was made nothing by mouth with NG tube, this was pulled out by the patient after a couple of days but she had no further vomiting. Diet was slowly advanced from sips to clear liquids to full liquids. Patient did well over the next couple of days. Urine was recultured because of her history of Klebsiella urinary tract infection on her previous admission but was no growth. Her other medications were continued. She improved and this morning is able to eat well, has been resumed her normal activity which is limited with her recent hip fracture. She will be transferred back to her skilled care senior care to continue physical therapy for her hip fracture. All previous orders will be continued from her previous senior care admission. Exam this morning shows clear lungs, regular heart rate, soft abdomen. No edema. She is able to move all of her extremities. Suture line on the RIGHT hip looks good. Discharge diagnoses Problem List 1. Ileus 2. Anemia Medications Medications: Discharge meds are as noted. Follow up Follow up in office in: 7 DAYS with: Yun Smith APRN at 0742
[2017-05-19 08:30] VITALS: BP 103/58
--- NOTE | 2017-05-19 08:36 | SURGEON PROGRESS NOTE ---
Subjective data Subjective data: No new complaints. She has been seen by PCP this AM and discharge is pending. Objective data Vitals,I&O,and Labs: Vital signs, intake and output,and available lab data for the last 24 hours is as noted below. Vital Signs Date Time Temp Pulse Resp B/P Pulse O2 O2 Flow FiO2 Ox Delivery Rate 05/19 0654 2 05/19 0625 2 05/19 0518 2 05/19 0424 2 05/19 0424 98.3 78 20 124/60 96 OXYGEN 2 05/19 0330 2 05/19 0245 2 05/19 0115 2 05/19 0023 2 05/19 0001 2 05/19 0001 88 ROOM AIR 05/18 2315 2 05/180 2 05/18 2143 97.5 74 16 95/39 05/18 2142 2 05/18 2101 2 05/18 2100 97 OXYGEN 3 05/18 2059 2 05/18 2059 97 4 05/18 2059 98 OXYGEN 4 05/18 2050 4 05/18 2050 97.5 74 16 95/39 97 OXYGEN 4 05/18 1854 4 05/18 1700 4 05/18 1600 97.9 94 18 115/57 96 OXYGEN 05/18 1500 4 05/18 1300 4 05/18 1100 4 05/18 0943 97.8 71 16 122/71 100 4 05/18 0900 4 05/18 1500 05/18 2300 05/19 0700 Intake Total 103 232 6568 Output Total Balance 000 246 6973 Intake, IV 2139 Intake, Oral 600 180 Output, Stool Laboratory Tests Test Result Date Time Chemistry Sodium (mmoL/L) 135 05/19 0620 Potassium (mmoL/L) 3.8 05/19 0620 Chloride (mmoL/L) 102 05/19 0620 Carbon Dioxide (mmoL/L) 28 05/19 0620 BUN (mg/dL) 2 05/19 06 Creatinine (mg/dL) 0.6 05/19 06 Estimated Creat Clear (ML/MIN) 114 05/19 06 Estimated GFR (MDRD) (ML/MIN) 97 05/19 06 Glucose (mg/dL) 285 05/19 0620 POC Glucose (mg/dl) 276 05/19 06 Lactic Acid (mmol/L) 2.0 05/12 1440 Calcium (mg/dL) 8.4 05/19 620 Total Bilirubin (mg/dL) 0.4 05/12 1412 AST (U/L) 16 05/12 1412 ALT (U/L) 21 05/12 1412 Alkaline Phosphatase (U/L) 52 05/12 1412 Creatine Kinase (U/L) 59 05/12 1412 CK-MB (CK-2) Rel Index (U/L) 2.4 05/12 1412 CK and CKMB Interp (ng/mL) 1.4 05/12 1412 Troponin I (ng/mL) < 0.02 05/12 1412 Total Protein (gm/dL) 6.6 05/12 1412 Albumin (gm/dL) 2.5 05/12 1412 Globulin (gm/dL) 4.1 05/12 1412 Albumin/Globulin Ratio 0.6 05/12 1412 Coagulation D-Dimer (ng/mL) 4560 05/12 1412 Hematology WBC (K/MM3) 7.0 05/19 620 RBC (M/mm3) 2.83 05/19 620 Hgb (g/dL) 8.5 05/19 620 Hct (%) 26.8 05/19 620 MCV (fl) 94.7 05/19 620 RDW (%) 15.0 05/19 620 Plt Count (K/mm3) 160 05/19 620 MPV (fl) 7.8 05/19 620 Gran % (%) 74.8 05/19 620 Gran # (K/mm3) 5.3 05/19 620 Total Counted (#CELLS) 100 05/13 636 Lymphocytes % (%) 18.0 05/19 620 Monocytes % (%) 5.3 05/19 620 Eosinophils % (%) 1.5 05/19 620 Basophils % (%) 0.3 05/19 620 Neutrophils (%) 85 05/13 636 Lymphocytes (Manual) (%) 11 05/13 636 Lymphocytes # (K/mm3) 1.3 05/19 620 Monocytes (Manual) (%) 2 05/13 636 Monocytes # (K/mm3) 0.4 05/19 620 Eosinophils # (K/mm3) 0.1 05/19 620 Basophils # (K/MM3) 0.0 05/19 620 Differential Comment PLT CLUMPS PRESENT 05/13 636 RBC/WBC/PLT Morphology NORMAL 05/13 636 Atypical Lymphocytes (%) 2 05/13 636 Platelet Estimate SLIGHT INCREASE 05/13 636 PUBS MCHC (g/dl) 31.8 05/19 620 Immunology MCH (pg) 30.2 05/19 620 Urines Urine Color YELLOW 05/12 1412 Urine Appearance CLEAR 05/12 1412 Urine pH 6.0 05/12 1412 Ur Specific [place] >= 1.030 05/12 1412 Urine Protein (mg/dL) 1+ 05/12 1412 Urine Ketones (mg/dL) NEGATIVE 05/12 1412 Urine Blood 1+ 05/12 1412 Urine Nitrate NEGATIVE 05/12 1412 Urine Bilirubin NEGATIVE 05/12 1412 Urine Urobilinogen (E.U./dL) 0.2 05/12 1412 Ur Leukocyte Esterase TRACE 05/12 1412 Urine RBC (rbc/hpf) 5-10 05/12 1412 Urine WBC (wbc/hpf) 5-10 05/12 1412 Ur Squamous Epith Cells (#/hpf) 3-5 05/12 1412 Urine Bacteria 3+ 05/12 1412 Hyaline Casts (#/lpf) 5-10 05/12 1412 Fine Granular Casts (#/lpf) OCC 05/12 1412 Urine Glucose NEGATIVE 05/12 1412 Assessment findings Assessment Exam General appearance: no acute distress Cardiovascular: regular rate & rhythm Respiratory: no respiratory distress ABD: soft Patient plan Diagnoses: post-op ileus - resolved Plan: outpatient follow-up as needed at 0835
[2017-05-19 16:29] VITALS: BP 135/76
[2017-05-19 19:51] VITALS: BP 134/70
[2017-05-19 21:30] VITALS: BP 134/70
[2017-05-20 04:30] VITALS: BP 141/81
--- NOTE | 2017-05-20 07:54 | ACUTE CARE PROGRESS NOTE (QUA) ---
Progress Notes Subjective Date 05/20/17 Time 0753 Note Patient is pleasant talkative, eating her breakfast well. No vomiting or diarrhea. Lungs clear, heart rate regular, abdomen is nice and soft. Objective Findings Last VS-Temp:97.6 B/P:141/81 Pulse:85 Resp:18 SaO2:96 OXYGEN Last weight lbs:210 oz:6 K.424 Method:Bed Scales Assessment/Plan Problem List 1. Ileus 2. Anemia Patient condition Improving, discharge whenever precertified for shelter stay is obtained. Please see discharge summary dictated yesterday. This inpt stay is expected to cross 2 MNs from start of care Yes at 0754
--- NOTE | 2017-05-20 07:54 | ACUTE CARE PROGRESS NOTE (QUA) ---
Progress Notes Subjective Date 05/20/17 Time 0753 Note Patient is pleasant talkative, eating her breakfast well. No vomiting or diarrhea. Lungs clear, heart rate regular, abdomen is nice and soft. Objective Findings Last VS-Temp:97.6 B/P:141/81 Pulse:85 Resp:18 SaO2:96 OXYGEN Last weight lbs:210 oz:6 K.424 Method:Bed Scales Assessment/Plan Problem List 1. Ileus 2. Anemia Patient condition Improving, discharge whenever precertified for [facility] stay is obtained. Please see discharge summary dictated yesterday. This inpt stay is expected to cross 2 MNs from start of care Yes at 0754
[2017-05-20 07:56] LABS: HEMOGLOBIN 8.4 g/dL (12.2-16.2); LYMPH # 1.4 K/mm3 (0.7-4.5); LYMPH % 23.2 % (10-50.0)
[2017-05-20 08:03] VITALS: BP 135/87
[2017-05-20 09:01] VITALS: BP 135/87
[2017-05-20 09:52] VITALS: BP 135/87
== END 2017-05-20 11:00 | DRG 389 ==
LOC: ER 13:54 → 2ND 17:02 → ER 17:02 → 2ND 17:56
PROVIDERS: Emergency Medicine; Internal Medicine Adolescent Medicine
DX: K56.7 Ileus, unspecified (principal); I50.30 Unspecified diastolic (congestive) heart failure; D64.9 Anemia, unspecified; E11.9 Type 2 diabetes mellitus without complications; I10 Essential (primary) hypertension; S72.012D Unspecified intracapsular fracture of left femur, subsequent encounter for closed fracture with routine healing; Z79.4 Long term (current) use of insulin
CPT/HCPCS: Q9967; S0077